=== PATIENT | female | born 1955 | race African-American/Black ===

== ENCOUNTER 2016-08-05 05:56 | Emergency (ER) | payer MEDICARE, OTHER ==
[~2016-08-05] VITALS: Ht 167.6 cm; Wt 76.9 kg
[~2016-08-05 05:56] MED LIST: ADAL60TA9 PO; AMOX500T PO; DIALYSIS; HUMSS SQ; LANTUSP SQ; LORTA5 PO; METO100T9 PO; OMEP20TA39 PO; WARF7.5T4 PO
[2016-08-05 06:05] VITALS: BP 109/53; PULSE 62; RESP 18; TEMP 98.4; O2SAT 94
[2016-08-05 06:19] VITALS: BP 109/53; PULSE 62; RESP 18; TEMP 98.4; O2SAT 94
--- NOTE | 2016-08-05 06:29 | PD ---
HPI Chief Complaint: Abdominal Pain Time Seen by Provider: 06:15 Travel History International Travel<30 days: No Contact w/Intl Traveler<30days: No Traveled to known affect area: No History of Present Illness HPI The patient is a 61-year-old female who complains of right flank pain since yesterday. She denies any nausea, vomiting, fever but does have a slight amount of diarrhea. She has end-stage renal failure and has a nonfunctioning kidney on her right side. She is on Coumadin and takes 7.5 mg daily. Apparently, this is because she has atrial fibrillation intermittently. The patient states she has not had atrial fibrillation in a long time. She does not make any urine. She states that she had pain like this on the left side when her left kidney was hemorrhaging. This is why they had to take her left kidney out. She denies any melanotic or bloody stools. 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)) Cardiovascular Problems: Yes High Cholesterol: Yes Chemotherapy: No Chest Pain: No Congestive Heart Failure: No Diabetes: Yes Dialysis: Yes (-W-) Diminished Hearing: No Endocrine: Yes Gastrointestinal Disorders: No Glaucoma: Yes Genitourinary: Yes (CRF/HOME DIALYSIS) Hepatitis: No Hiatal Hernia: No Hypertension: Yes Immune Disorder: No Implanted Vascular Access Dvce: Yes Kidney Stones: No Musculoskeletal: Yes Neurologic: No Psychiatric: No Reproductive: No Respiratory: No Immunizations Current: No Radiation Therapy: No Renal Failure: Yes (ESRD) Thyroid Disease: No ?: Not Menopausal: Yes Past Surgical History Abdominal Surgery: Yes (SARCOMA REMOVED) AICD: No Arteriovenous Shunt: Yes (Left arm fistula) Body Medical Devices: SHUNT LEFT UPPER ARM Cardiac Surgery: No Cholecystectomy: Yes Ear Surgery: No Endocrine Surgery: Yes (PARATHYROID REMOVED) Eye Surgery: Yes (LEFT LENS IMPLANT 2005) Genitourinary Surgery: No Gynecologic Surgery: Yes (HYSTERECTOMY 1989) Hysterectomy: Yes Insulin Pump: No Joint Replacement: No Oral Surgery: No Pacemaker: No Thoracic Surgery: No Other Surgery: Yes (SARCOMA REMOVAL 2000, FISTULAS TO L UPPER EXTREMITY PATENT FOR BRUIT/THRILL) Social History Alcohol Use: No Tobacco Use: No Substance Use: No Allergies-Medications (Allergen,Severity, Reaction): Coded Allergies: Vancomycin (Verified Allergy, Severe, Hives, 08/05/16) Zithromax (Verified Allergy, Severe, 08/05/16) Reported Meds & Prescriptions Reported Meds & Active Scripts Active Reported Hydroxyzine HCl 25 Mg Tab 25 Mg PO TID PRN Warfarin 7.5 Mg Tab 7.5 Mg PO DAILY Metoprolol Succinate ER 24 HR (Metoprolol Succinate) 50 Mg Tab 50 Mg PO DAILY Lantus Inj (Insulin Glargine) 1,000 Unit/10 Ml Vial 16 Units SQ HS Review of Systems Except as stated in HPI: all other systems reviewed are Neg Physical Exam Narrative GENERAL: The patient is obese, alert, oriented 3 and moderate apparent distress with her right flank pain. Her vital signs are normal. SKIN: Warm and dry. HEAD: Atraumatic. Normocephalic. EYES: Pupils equal and round. No scleral icterus. No injection or drainage. ENT: No nasal bleeding or discharge. Mucous membranes pink and moist. NECK: Trachea midline. No JVD. CARDIOVASCULAR: Regular rate and rhythm. No murmur appreciated. RESPIRATORY: No accessory muscle use. Clear to auscultation. Breath sounds equal bilaterally. GASTROINTESTINAL: Abdomen soft, with tenderness to direct palpation over the right flank, nondistended. Hepatic and splenic margins not palpable. No guarding or rebound is present. MUSCULOSKELETAL: No obvious deformities. No clubbing. No cyanosis. No edema. NEUROLOGICAL: Awake and alert. No obvious cranial nerve deficits. Motor grossly within normal limits. Normal speech. PSYCHIATRIC: Appropriate mood and affect; insight and judgment normal. Data Data Last Documented VS Vital Signs Date Time Temp Pulse Resp B/P Pulse Ox O2 Delivery O2 Flow Rate FiO2 08/05/16 06:33 18 91 Nasal Cannula 2 08/05/16 06:19 98.4 62 109/53 Orders Complete Blood Count With Diff (08/05/16 06:29) Comprehensive Metabolic Panel (08/05/16 06:29) Lipase (08/05/16 06:29) Ct Abd/Pel W Iv Contrast(Rout) (08/05/16 06:29) Iv Access Insert/Monitor (08/05/16 06:29) Ecg Monitoring (08/05/16 06:29) Oximetry (08/05/16 06:29) Sodium Chloride 0.9% Flush (Ns Flush) (08/05/16 06:30) Electrocardiogram (08/05/16 07:00) Prothrombin Time / Inr (Pt) (08/05/16 07:00) MDM Medical Decision Making Medical Screen Exam Complete: Yes Emergency Medical Condition: Yes Medical Record Reviewed: Yes Differential Diagnosis Intra-abdominal hemorrhage, cholecystitis, colitis, infection right kidney, intra-abdominal abscess, coagulopathy from Coumadin Narrative Course It is now 0700 and the patient is transferred to Dr. Dalal. Ghassan Bueno MD Aug 05, 2016 06:29
[2016-08-05] MEDS ORDERED: SODIUM CHLORIDE 0.9% FLUSH 5 ML FLUSH IVF PRN (06:30)
[2016-08-05] MEDS ORDERED: HYDR-3133 PO (06:32)
[2016-08-05] MEDS ORDERED: LANTUS2P SQ (06:32)
[2016-08-05] MEDS ORDERED: METO50TA11 PO (06:32)
[2016-08-05] MEDS ORDERED: WARF-21 PO (06:32)
[2016-08-05 06:33] VITALS: RESP 18; O2SAT 91; O2SAT 94
[2016-08-05 07:04] VITALS: BP 144/62; PULSE 64; RESP 17; O2SAT 97
[2016-08-05 07:05] LABS: AUTOMATED NEUTROPHIL # 8.8 TH/MM3 (1.8-7.7); BASOPHIL # 0.1 TH/MM3 (0-0.2); BASOPHIL % 0.7 % (0.0-2.0); EOSINOPHIL # 0.4 TH/MM3 (0-0.4); EOSINOPHIL % 3.2 % (0.0-4.0); HEMATOCRIT 35.3 % (35.0-46.0); LYMPH % 12.3 % (9.0-44.0); LYMPHOCYTE # 1.4 TH/MM3 (1.0-4.8); MEAN CELL VOLUME 91.9 FL (80.0-100.0); MEAN CORPUSCULAR HEMOGLOBIN 29.3 PG (27.0-34.0); MEAN CORPUSCULAR HGB CONC 31.8 % (32.0-36.0); MONO % 5.7 % (0.0-8.0); NEUT % 78.1 % (16.0-70.0); PLATELET COUNT 155 TH/MM3 (150-450); RED BLOOD COUNT 3.85 MIL/MM3 (4.00-5.30); RED CELL DISTRIBUTION WIDTH 15.8 % (11.6-17.2); WHITE BLOOD COUNT 11.3 TH/MM3 (4.0-11.0)
[2016-08-05 07:12] LABS: HEMO FLAGS DIFF FINAL
[2016-08-05 07:13] LABS: CHLORIDE 98 MEQ/L (98-107); POTASSIUM 6.1 MEQ/L (3.5-5.1); SODIUM (NA) 134 MEQ/L (136-145)
[2016-08-05 07:18] LABS: ANION GAP 13 MEQ/L (5-15); BICARBONATE 22.7 MEQ/L (21.0-32.0); BLOOD UREA NITROGEN 74 MG/DL (7-18)
[2016-08-05 07:21] LABS: ALT (GPT) 23 U/L (10-53); AST (GOT) 25 U/L (15-37); GLOMERULAR FILTRATION RATE 6 ML/MIN (>89)
[2016-08-05 07:23] LABS: TOTAL BILIRUBIN ADULT 0.6 MG/DL (0.2-1.0)
[2016-08-05 07:24] LABS: ALKALINE PHOSPHATASE 133 U/L (45-117)
[2016-08-05] MEDS ORDERED: IOHEXOL 350 MG/ML 10 ML VIAL (for RAD DIAG) IV ONE (07:49)
[2016-08-05 07:59] LABS: INTERNATIONAL NORMALIZED RATIO 2.8 RATIO; PROTHROMBIN TIME - PATIENT 32.1 SEC (9.8-11.6)
[2016-08-05] MEDS ORDERED: DEXTROSE 50% IN WATER 50 ML VIAL(D50) IV PUSH ONE (08:15)
[2016-08-05] MEDS ORDERED: INSULIN HUMAN REGULAR 1,000 UNITS/10 ML VIAL IV PUSH ONE (08:15)
--- NOTE | 2016-08-05 08:24 | RADHPO ---
EXAM DATE/TIME: 08/05/2016 07:42 [facility] COMPARISON: CT ABDOMEN & PELVIS W/O CONTRAST, March 22, 2014, 20:02. INDICATIONS : Right flank pain. IV CONTRAST: 75 cc Omnipaque 350 (iohexol) IV ORAL CONTRAST: No oral contrast ingested. RADIATION DOSE: 11.44 CTDIvol (mGy) MEDICAL HISTORY : Diabetes mellitus type 2. Hypertension. Renal disease, end stage. SURGICAL HISTORY : Hysterectomy. Cholecystectomy. ENCOUNTER: Initial ACUITY: 1 day PAIN SCALE: 10/10 LOCATION: Right flank TECHNIQUE: Volumetric scanning of the abdomen and pelvis was performed. Using automated exposure control and ad justment of the mA and/or kV according to patient size, radiation dose was kept as low as reasonably achievable to obtain optimal diagnostic quality images. FINDINGS: LOWER LUNGS: Bibasilar atelectasis. LIVER: Homogeneous density without lesion. There is no dilation of the biliary tree. Gallbladder is surgica lly absent. SPLEEN: A new low density lesion is seen involving the spleen. This measures 2.8 x 2.2 cm. This is vaguely ma rginated. The remaining aspects of the spleen are unremarkable. PANCREAS: 1.1 cm low-density lesion is seen involving the uncinate process. Hounsfield units are 15. The remain ing pancreas is unremarkable. No ductal dilatation. No acute inflammation. KIDNEYS: The left kidney is surgically absent. No mass within the surgical bed. The right kidney contains william ral small cortical cysts. No hydronephrosis. Pronounced atherosclerotic changes within the renal mitchell royal. ADRENAL GLANDS: Within normal limits. VASCULAR: Diffuse severe calcified atherosclerotic plaque throughout all visible arterial structures within the abdomen. No aneurysmal change of the aorta. Probable bilateral common iliac artery stenoses. BOWEL/MESENTERY: The stomach, small bowel, and colon demonstrate no acute abnormality. There is no free intraperitone al air or fluid. ABDOMINAL WALL: Within normal limits. RETROPERITONEUM: There is no lymphadenopathy. BLADDER: No wall thickening or mass. REPRODUCTIVE: Within normal limits. INGUINAL: There is no lymphadenopathy or hernia. MUSCULOSKELETAL: Within normal limits for patient age. CONCLUSION: 1. No acute abnormality. 2. 2.8 x 2.2 cm nonspecific low density mass involving the spleen. This is a new finding from the alex or exam although the prior exam was without contrast which limits the sensitivity for depicting lesio ns. Consider an outpatient MRI to further evaluate this lesion. 3. 11 mm cystic lesion involving the uncinate process of the pancreas. This is poorly characterize on this examination. Further characterization as an outpatient with MRI is suggested. 4. Prior left nephrectomy. 5. Diffuse severe calcified atherosclerotic plaque with suspected bilateral common iliac stenoses. Juan Miguel Ocampo Jr., MD on August 05, 2016 at 8:07 Board Certified Radiologist. This report was verified electronically.
[2016-08-05] MEDS ORDERED: SODIUM BICARBONATE 8.4% INJ 50 MEQ/50 ML SYR IV PUSH ONE (08:45)
[2016-08-05 08:57] VITALS: PULSE 62; O2SAT 100
--- NOTE | 2016-08-05 09:46 | PD ---
Physical Exam Narrative GENERAL: Well-nourished, well-developed patient. Well-appearing SKIN: Warm and dry. Fistula site noted on left arm HEAD: Normocephalic and atraumatic. EYES: No injection or drainage. ENT: No nasal drainage noted. NECK: Supple, trachea midline. CARDIOVASCULAR: Regular rate and rhythm RESPIRATORY: No increased effort. No accessory muscle use. NEUROLOGICAL: Awake and alert. Motor and sensory grossly within normal limits. Normal speech. Data Data Last Documented VS Vital Signs Date Time Temp Pulse Resp B/P Pulse Ox O2 Delivery O2 Flow Rate FiO2 08/05/16 09:47 62 17 140/68 100 Room Air 08/05/16 07:04 2 08/05/16 06:19 98.4 Orders Complete Blood Count With Diff (08/05/16 06:29) Comprehensive Metabolic Panel (08/05/16 06:29) Lipase (08/05/16 06:29) Ct Abd/Pel W Iv Contrast(Rout) (08/05/16 06:29) Iv Access Insert/Monitor (08/05/16 06:29) Ecg Monitoring (08/05/16 06:29) Oximetry (08/05/16 06:29) Sodium Chloride 0.9% Flush (Ns Flush) (08/05/16 06:30) Electrocardiogram (08/05/16 07:00) Prothrombin Time / Inr (Pt) (08/05/16 07:00) Iohexol 350 Inj (Omnipaque 350 Inj) (08/05/16 07:49) Insulin Human Regular Inj (Novolin R Inj (08/05/16 08:15) Dextrose 50% In Best (Vial) Inj (D50w (Vi (08/05/16 08:15) Dextrose 5% In Wate... W/Sodium Bicarbon (08/05/16 10:04) Sodium Bicarbonate 8.4% Inj (Sodium Bica (08/05/16 08:45) Labs Laboratory Tests Test 08/05/16 08/05/16 06:45 07:37 White Blood Count 11.3 TH/MM3 Red Blood Count 3.85 MIL/MM3 Hemoglobin 11.3 GM/DL Hematocrit 35.3 % Mean Corpuscular Volume 91.9 FL Mean Corpuscular Hemoglobin 29.3 PG Mean Corpuscular Hemoglobin 31.8 % Concent Red Cell Distribution Width 15.8 % Platelet Count 155 TH/MM3 Mean Platelet Volume 9.7 FL Neutrophils (%) (Auto) 78.1 % Lymphocytes (%) (Auto) 12.3 % Monocytes (%) (Auto) 5.7 % Eosinophils (%) (Auto) 3.2 % Basophils (%) (Auto) 0.7 % Neutrophils # (Auto) 8.8 TH/MM3 Lymphocytes # (Auto) 1.4 TH/MM3 Monocytes # (Auto) 0.6 TH/MM3 Eosinophils # (Auto) 0.4 TH/MM3 Basophils # (Auto) 0.1 TH/MM3 CBC Comment DIFF FINAL Differential Comment Sodium Level 134 MEQ/L Potassium Level 6.1 MEQ/L Chloride Level 98 MEQ/L Carbon Dioxide Level 22.7 MEQ/L Anion Gap 13 MEQ/L Blood Urea Nitrogen 74 MG/DL Creatinine 8.70 MG/DL Estimat Glomerular Filtration 6 ML/MIN Rate Random Glucose 88 MG/DL Calcium Level 8.5 MG/DL Total Bilirubin 0.6 MG/DL Aspartate Amino Transf 25 U/L (AST/SGOT) Alanine Aminotransferase 23 U/L (ALT/SGPT) Alkaline Phosphatase 133 U/L Total Protein 7.9 GM/DL Albumin 2.8 GM/DL Lipase 234 U/L Prothrombin Time 32.1 SEC Prothromb Time International 2.8 RATIO Ratio [facility] Supervised Visit with ANDREW: No Interpretation(s) CBC & BMP Diagram 08/05/16 06:45 Last 24 hours Impressions Abdomen/Pelvis CT 08/05/16 0629 Signed Impressions: Service Date/Time: Friday, August 05, 2016 07:42 - CONCLUSION: 1. No acute abnormality. 2. 2.8 x 2.2 cm nonspecific low density mass involving the spleen. This is a new finding from the prior exam although the prior exam was without contrast which limits the sensitivity for depicting lesions. Consider an outpatient MRI to further evaluate this lesion. 3. 11 mm cystic lesion involving the uncinate process of the pancreas. This is poorly characterize on this examination. Further characterization as an outpatient with MRI is suggested. 4. Prior left nephrectomy. 5. Diffuse severe calcified atherosclerotic plaque with suspected bilateral common iliac stenoses. Juan Miguel Ocampo Jr., MD Patient given copy of CAT scan for follow-up Narrative Course Signed over to me to follow blood work, CT and if no emergent findings could go home CT shows no acute findings with lesions that need to be followed outpatient. Patient updated and given copy for follow-up. Patient has elevated potassium and will need dialysis today will discuss with her pull tab dealer Dr. Mayfield Patient updated and agrees to dialysis today at 1145 through her pull tab dealer as an outpatient.Patient denies any new complaints and states that they are feeling better. Patient happy with care, all questions answered. Patient knows that follow up is incumbent on them and to return to the emergency room immediately if new or worsening symptoms develop. Patient given strict return precautions, vitals reviewed and are normal, agrees to further workup as an outpatient. Physician Communication Physician Communication Dr. Salinas states patient can go and Will arrange outpatient dialysis [facility] called back and said to have patient come in at 1145 Diagnosis Primary Impression: Hyperkalemia Additional Impression: Acute flank pain Patient Instructions: General Instructions Additional Instruction: GO TO YOUR DIALYSIS CENTER AT 1145 for dialysis; follow with your primary tomorrow, return as needed, Tylenol as needed Med/Other Pt SpecificInfo: No Change to Meds Disposition: 01 DISCHARGE HOME Condition: Stable Mara Bojorquez MD Aug 05, 2016 09:46
[2016-08-05 09:47] VITALS: BP 140/68; PULSE 62; RESP 17; O2SAT 100
[2016-08-05] MEDS ORDERED: SODIUM BICARBONATE 8.4% INJ 150 MEQ in DEXTROSE 5% IN WATE 1000ML INJ 1,000 ML IV ONE ×2 (10:04)
--- NOTE | 2016-08-05 17:27 | EKG ---
Date Performed: 08/05/2016 Time Performed: 07:12:38 PTAGE: 61 years EKG: Sinus arrhythmia with 1st degree A-V block Left axis deviation Anterior T wave changes are nonspecific Abnormal ECG PREVIOUS TRACING : 03/22/2014 20.13 Since previous tracing, no significant change noted DOCTOR: Merle Cruz Interpretating Date/Time 08/05/2016 17:22:07
== END 2016-08-05 09:56 | disposition home or self-care (01) ==
LOC: PHED 05:56
DX: E87.5 Hyperkalemia (principal); R10.9 Unspecified abdominal pain; R19.7 Diarrhea, unspecified; N18.6 End stage renal disease; E78.00 Pure hypercholesterolemia, unspecified; E11.9 Type 2 diabetes mellitus without complications; I12.0 Hypertensive chronic kidney disease with stage 5 chronic kidney disease or end stage renal disease; R94.31 Abnormal electrocardiogram [ECG] [EKG]; Z99.2 Dependence on renal dialysis; Z79.01 Long term (current) use of anticoagulants; Z79.4 Long term (current) use of insulin; Z86.69 Personal history of other diseases of the nervous system and sense organs; Z87.39 Personal history of other diseases of the musculoskeletal system and connective tissue; Z86.79 Personal history of other diseases of the circulatory system
CPT/HCPCS: 74177; 80053; 83690; 85025; 85610; 93005; 96374; 96375; 99284; J1815; Q9967

== ENCOUNTER 2017-04-19 09:18 | Inpatient (IN) | payer MEDICARE, OTHER ==
[~2017-04-19] VITALS: Ht 167.6 cm; Wt 74.9 kg
[2017-04-19] VITALS (29 sets, daily range): BP systolic 94–221; BP diastolic 49–108; PULSE 68–105; RESP 15–42; TEMP 98.9–104.4; O2SAT 90–99
[~2017-04-19 09:18] MED LIST changes: -ADAL60TA9 PO; -AMOX500T PO; -DIALYSIS; -HUMSS SQ; +HYDR-3133 PO; +LANTUS2P SQ; -LANTUSP SQ; -LORTA5 PO; -METO100T9 PO; +METO1TAB9 PO; -OMEP20TA39 PO; +WARF-21 PO; -WARF7.5T4 PO
[2017-04-19] MEDS ORDERED: SODIUM CHLORIDE 0.9% FLUSH 10 ML FLUSH IVF PRN (09:45)
--- NOTE | 2017-04-19 10:12 | PD ---
HPI Chief Complaint: Chest Pain Time Seen by Provider: 09:42 Travel History International Travel<30 days: No Contact w/Intl Traveler<30days: No Traveled to known affect area: No History of Present Illness HPI Ms. Bowers presents to the ED via [facility] with 2 day history of neck pain. She says the pain is in her entire neck and rates it 10/10. She cannot recall any events that led to her neck pain and stiffness. She denies any recent falls or trauma. She also states that the neck pain is going up to her head and going down towards her chest as well. She denies chest pain, dizziness, cough, congestion , fever, nausea, vomiting, or changes in bowel or urination. She has a history of hypertension, diabetes and CKD. She was due for hemodialysis today. She does not know any exacerbating alleviating factors. She denies any photophobia. Modifying Factors: None Associated Signs & Symptoms: 2 days of neck pain, chest pains, and headaches Risk Factors: End-stage renal disease, on dialysis PFSH Past Medical History Hx Anticoagulant Therapy: Yes Arthritis: Yes Atrial Fibrillation: Yes (Haven't had in years) Autoimmune Disease: No Heart Rhythm Problems: No Cancer: Yes (MYOSARCOMA (UNSURE EXACT LOCATION, FOUND WITH RENAL FAILURE DIAGNOSIS)) Cardiovascular Problems: Yes (HTN, afib) High Cholesterol: Yes Chemotherapy: No Chest Pain: No Congestive Heart Failure: No Diabetes: Yes Patient Takes Glucophage: No Dialysis: Yes (M-W-) Diminished Hearing: No Endocrine: Yes Gastrointestinal Disorders: No Glaucoma: Yes Genitourinary: Yes (CRF/HOME DIALYSIS) Hepatitis: No Hiatal Hernia: No Hypertension: Yes Immune Disorder: No Implanted Vascular Access Dvce: Yes Kidney Stones: No Medical other: Yes (HYPERPARATHYROIDISM) Musculoskeletal: Yes Neurologic: No Psychiatric: No Reproductive: No Respiratory: No Immunizations Current: Yes Pneumonia: Yes Radiation Therapy: No Renal Failure: Yes (ESRD) Thyroid Disease: No Tetanus Vaccination: Unknown Influenza Vaccination: Yes Menopausal: Yes : 2 Para: 2 Past Surgical History Abdominal Surgery: Yes (SARCOMA REMOVED) AICD: No Arteriovenous Shunt: Yes (Left arm fistula) Body Medical Devices: SHUNT LEFT UPPER ARM Cardiac Surgery: No Cholecystectomy: Yes Ear Surgery: No Endocrine Surgery: Yes (PARATHYROID REMOVED) Eye Surgery: Yes (LEFT LENS IMPLANT 2005) Genitourinary Surgery: No Gynecologic Surgery: Yes (HYSTERECTOMY 1989) Hysterectomy: Yes Insulin Pump: No Joint Replacement: No Oral Surgery: No Pacemaker: No Thoracic Surgery: No Other Surgery: Yes (SARCOMA REMOVAL 2000, FISTULAS TO L UPPER EXTREMITY PATENT FOR BRUIT/THRILL) Social History Alcohol Use: Yes (OCC) Tobacco Use: No Substance Use: No Allergies-Medications (Allergen,Severity, Reaction): Coded Allergies: azithromycin (Verified Allergy, Severe, 04/19/17) vancomycin (Verified Allergy, Severe, Hives, 04/19/17) Reported Meds & Prescriptions Reported Meds & Active Scripts Active Reported Hydroxyzine HCl 25 Mg Tab 25 Mg PO TID PRN Warfarin 7.5 Mg Tab 7.5 Mg PO DAILY Metoprolol Succinate ER 24 HR (Metoprolol Succinate) 50 Mg Tab 50 Mg PO DAILY Lantus Inj (Insulin Glargine) 1,000 Unit/10 Ml Vial 16 Units SQ HS Review of Systems Except as stated in HPI: all other systems reviewed are Neg Physical Exam Exam Limitations: Poor Historian Narrative GENERAL: Well-developed, well nourished, elderly -Japanese female, in mild distress. Awake and oriented 3. No photophobia. SKIN: Warm and dry. healed rashed over abdomen and extremities HEAD: Atraumatic. Normocephalic. EYES: Pupils equal and round. No scleral icterus. No injection or drainage. NECK: Trachea midline. Limited ROM due to pain. Pain on palpation, no point tenderness or midline tenderness. No JVD. CARDIOVASCULAR: Regular rate and rhythm. RESPIRATORY: No accessory muscle use. Clear to auscultation. Breath sounds equal bilaterally. GASTROINTESTINAL: Abdomen soft, non-tender, nondistended. Hepatic and splenic margins not palpable. MUSCULOSKELETAL: Extremities without clubbing, cyanosis, or edema. No obvious deformities. NEUROLOGICAL: Awake and alert. No obvious cranial nerve deficits. Motor grossly within normal limits. 5/5 muscle strength in the arms and legs on the RIGHT. 4/5 muscle strength in the arms and legs on the LEFT. Normal speech. PSYCHIATRIC: Appropriate mood and affect; insight and judgment normal. Data Data Last Documented VS Vital Signs Date Time Temp Pulse Resp B/P (MAP) Pulse Ox O2 Delivery O2 Flow Rate FiO2 04/19/17 12:02 98.9 72 17 214/77 (122) 99 Room Air 04/19/17 10:53 2.00 Orders Orders Electrocardiogram (04/19/17 09:42) Ckmb (Isoenzyme) Profile (04/19/17 09:42) Complete Blood Count With Diff (04/19/17 09:42) Comprehensive Metabolic Panel (04/19/17 09:42) Magnesium (Mg) (04/19/17 09:42) Prothrombin Time / Inr (Pt) (04/19/17 09:42) Act Partial Throm Time (Ptt) (04/19/17 09:42) Troponin I (04/19/17 09:42) Chest, Single Ap (04/19/17 09:42) Ecg Monitoring (04/19/17 09:42) Bilateral Bp Monitoring (04/19/17 09:42) Iv Access Insert/Monitor (04/19/17 09:42) Oximetry (04/19/17 09:42) Oxygen Administration (04/19/17 09:42) Sodium Chloride 0.9% Flush (Ns Flush) (04/19/17 09:45) Ct Brain W/O Iv Contrast(Rout) (04/19/17 09:58) Ct Cerv Spine W/O Contrast (04/19/17 09:58) Blood Culture (04/19/17 09:59) Lactic Acid Sepsis Protocol (04/19/17 09:59) Admit Order (Ed Use Only) (04/19/17 12:39) Labs Laboratory Tests Test 04/19/17 10:10 White Blood Count 7.1 TH/MM3 Red Blood Count 4.65 MIL/MM3 Hemoglobin 13.6 GM/DL Hematocrit 42.0 % Mean Corpuscular Volume 90.3 FL Mean Corpuscular Hemoglobin 29.3 PG Mean Corpuscular Hemoglobin Concent 32.4 % Red Cell Distribution Width 15.6 % Platelet Count 137 TH/MM3 Mean Platelet Volume 11.4 FL Neutrophils (%) (Auto) 89.8 % Lymphocytes (%) (Auto) 5.9 % Monocytes (%) (Auto) 3.6 % Eosinophils (%) (Auto) 0.0 % Basophils (%) (Auto) 0.7 % Neutrophils # (Auto) 6.4 TH/MM3 Lymphocytes # (Auto) 0.4 TH/MM3 Monocytes # (Auto) 0.3 TH/MM3 Eosinophils # (Auto) 0.0 TH/MM3 Basophils # (Auto) 0.0 TH/MM3 CBC Comment DIFF FINAL Differential Comment Prothrombin Time 44.3 SEC Prothromb Time International Ratio 3.8 RATIO Activated Partial Thromboplast Time 50.9 SEC Blood Urea Nitrogen 76 MG/DL Creatinine 9.80 MG/DL Random Glucose 270 MG/DL Total Protein 9.1 GM/DL Albumin 3.4 GM/DL Calcium Level 9.0 MG/DL Magnesium Level 2.1 MG/DL Alkaline Phosphatase 162 U/L Aspartate Amino Transf (AST/SGOT) 27 U/L Alanine Aminotransferase (ALT/SGPT) 30 U/L Total Bilirubin 0.9 MG/DL Sodium Level 127 MEQ/L Potassium Level 6.5 MEQ/L Chloride Level 88 MEQ/L Carbon Dioxide Level 26.4 MEQ/L Anion Gap 13 MEQ/L Estimat Glomerular Filtration Rate 5 ML/MIN Lactic Acid Level 2.1 mmol/L Total Creatine Kinase 95 U/L Troponin I 0.06 NG/ML MDM Medical Decision Making Medical Screen Exam Complete: Yes Emergency Medical Condition: Yes Medical Record Reviewed: Yes Interpretation(s) EKG shows NSR, no ST elevation or depression, and no arrhythmias. No significant T-wave inversions. Laboratory Tests Test 04/19/17 10:10 Platelet Count 137 TH/MM3 (150-450) Mean Platelet Volume 11.4 FL (7.0-11.0) Neutrophils (%) (Auto) 89.8 % (16.0-70.0) Lymphocytes (%) (Auto) 5.9 % (9.0-44.0) Lymphocytes # (Auto) 0.4 TH/MM3 (1.0-4.8) Prothrombin Time 44.3 SEC (9.8-11.6) Activated Partial Thromboplast Time 50.9 SEC (24.3-30.1) Blood Urea Nitrogen 76 MG/DL (7-18) Creatinine 9.80 MG/DL (0.50-1.00) Random Glucose 270 MG/DL (74-106) Total Protein 9.1 GM/DL (6.4-8.2) Alkaline Phosphatase 162 U/L (45-117) Sodium Level 127 MEQ/L (136-145) Potassium Level 6.5 MEQ/L (3.5-5.1) Chloride Level 88 MEQ/L (98-107) Estimat Glomerular Filtration Rate 5 ML/MIN (>89) Lactic Acid Level 2.1 mmol/L (0.4-2.0) Troponin I 0.06 NG/ML (0.02-0.05) Last [address] 04/19/17957 Signed Impressions: Service Date/Time: Wednesday, April 19, 2017 11:00 - CONCLUSION: Negative for acute process. There is no sinus disease. Clayton Romero MD FACR Cervical Spine CT 04/19/17957 Signed Impressions: Service Date/Time: Wednesday, April 19, 2017 11:00 - CONCLUSION: 1. There is moderate to severe multilevel degenerative disc disease with possible canal stenosis at C3-C4, C5-C6, and C6-C7, as above. There are additional areas of mild neural foraminal narrowing. These findings could be better delineated with MRI, if needed. 2. No acute cervical spine abnormality is identified. Anival Anderson MD Chest X-Ray [id number] Signed Impressions: Service Date/Time: Wednesday, April 19, 2017 10:30 - CONCLUSION: Moderate congestive failure. Clayton Romero MD FACR Differential Diagnosis neck pains, headaches, chest pains: Muscle spasms versus ACS versus radiculopathy versus torticollis Narrative Course Patient's blood pressures quite elevated in the ER. EKG did not show any signs of acute ST-T changes. CAT scan was done of the head and neck considering the story and did not show any signs of acute processes but does show significant cervical arthritis and likely causing some radiculopathy for the neck pain. Vital signs are stable in the patient is afebrile. Her lab work does show her BUN and creatinine is quite elevated potassium is high, she is in need of dialysis. Chest x-ray shows some signs of pulmonary edema as well. Troponin is mildly elevated although with patient's BUN and creatinine, it is uncertain whether this is a true elevation. She will need further treatment for her blood pressure and will need her troponins followed up. Plan would be to admit her for further treatment at this point. Case was discussed with Dr. Mani Mayfield's nurse practitioner who states that she will get to dialysis set up. She also would like us to start the patient on hyperkalemia protocol considering that the dialysis will take a few more hours, and patient was started on bicarbonate, insulin, glucose, and calcium. Case was then discussed with Dr. Garcia for admission. Diagnosis Primary Impression: Hyperkalemia Additional Impressions: ESRD (end stage renal disease) Hypertensive urgency, malignant Chest pain Neck pain Admitting Information Admitting Physician Requests: Admit Luis Knott MD Apr 19, 2017 10:12
[2017-04-19 10:47] LABS: CHLORIDE 88 MEQ/L (98-107); POTASSIUM 6.5 MEQ/L (3.5-5.1); SODIUM (NA) 127 MEQ/L (136-145)
[2017-04-19 10:51] LABS: ANION GAP 13 MEQ/L (5-15); BICARBONATE 26.4 MEQ/L (21.0-32.0); BLOOD UREA NITROGEN 76 MG/DL (7-18); MAGNESIUM 2.1 MG/DL (1.5-2.5)
[2017-04-19 10:52] LABS: APTT (PATIENT) 50.9 SEC (24.3-30.1); INTERNATIONAL NORMALIZED RATIO 3.8 RATIO; PROTHROMBIN TIME - PATIENT 44.3 SEC (9.8-11.6)
[2017-04-19 10:54] LABS: ALT (GPT) 30 U/L (10-53); AST (GOT) 27 U/L (15-37); GLOMERULAR FILTRATION RATE 5 ML/MIN (>89)
[2017-04-19 10:55] LABS: TOTAL BILIRUBIN ADULT 0.9 MG/DL (0.2-1.0)
--- NOTE | 2017-04-19 10:55 | RADRPT ---
EXAM DATE/TIME: 04/19/2017 10:30 [facility] COMPARISON: CHEST SINGLE AP, March 22, 2014, 20:35. INDICATIONS : Neck pain that radiates to chest. MEDICAL HISTORY : Diabetes mellitus type II. Hypertension Hyperparathyroidism. SURGICAL HISTORY : None. ENCOUNTER: Initial ACUITY: 2 days PAIN SCORE: 10/10 LOCATION: Bilateral chest FINDINGS: The heart is enlarged. Mild interstitial edema is present. There is no other consolidation, pleural effusion pneumothorax. Amorphous calcifications are seen overlying the distal right clavicle, stable in the interval. CONCLUSION: Moderate congestive failure. Clayton Romero MD FACR on April 19, 2017 at 10:50 Board Certified Radiologist. This report was verified electronically.
[2017-04-19 10:57] LABS: ALKALINE PHOSPHATASE 162 U/L (45-117)
[2017-04-19 11:00] LABS: AUTOMATED NEUTROPHIL # 6.4 TH/MM3 (1.8-7.7); BASOPHIL % 0.7 % (0.0-2.0); CREATINE KINASE 95 U/L (26-192); HEMO FLAGS DIFF FINAL; LYMPH % 5.9 % (9.0-44.0); LYMPHOCYTE # 0.4 TH/MM3 (1.0-4.8); MEAN CELL VOLUME 90.3 FL (80.0-100.0); MEAN CORPUSCULAR HEMOGLOBIN 29.3 PG (27.0-34.0); MEAN CORPUSCULAR HGB CONC 32.4 % (32.0-36.0); MONO % 3.6 % (0.0-8.0); NEUT % 89.8 % (16.0-70.0); PLATELET COUNT 137 TH/MM3 (150-450); RED BLOOD COUNT 4.65 MIL/MM3 (4.00-5.30); RED CELL DISTRIBUTION WIDTH 15.6 % (11.6-17.2); WHITE BLOOD COUNT 7.1 TH/MM3 (4.0-11.0)
--- NOTE | 2017-04-19 11:10 | RADRPT ---
EXAM DATE/TIME: 04/19/2017 11:00 [facility] COMPARISON: CT BRAIN W/O CONTRAST, September 06, 2010, 16:00. INDICATIONS : Head and neck pain. No known trauma. RADIATION DOSE: 61.53 CTDIvol (mGy) MEDICAL HISTORY : Hypertension. Renal failure, chronic. Diabetes mellitus type 2. SURGICAL HISTORY : Cholecystectomy. Hysterectomy.AV Shunt. ENCOUNTER: Initial ACUITY: 2 days PAIN SCALE: 8/10 LOCATION: cranial TECHNIQUE: Multiple contiguous axial images were obtained of the head. Using automated exposure control and adj ustment of the mA and/or kV according to patient size, radiation dose was kept as low as reasonably a chievable to obtain optimal diagnostic quality images. DICOM format image data is available electro nically for review and comparison. FINDINGS: CEREBRUM: The ventricles are normal for age. No evidence of midline shift, mass lesion, hemorrhage or acute in farction. No extra-axial fluid collections are seen. POSTERIOR FOSSA: The cerebellum and brainstem are intact. The 4th ventricle is midline. The cerebellopontine angle i s unremarkable. EXTRACRANIAL: The visualized portion of the orbits is intact. SKULL: The calvaria is intact. No evidence of skull fracture. CONCLUSION: Negative for acute process. There is no sinus disease. Clayton Romero MD FACR on April 19, 2017 at 11:08 Board Certified Radiologist. This report was verified electronically.
--- NOTE | 2017-04-19 12:06 | RADRPT ---
EXAM DATE/TIME: 04/19/2017 11:00 [facility] COMPARISON: CT ABDOMEN & PELVIS W CONTRAST, August 05, 2016, 7:42. INDICATIONS : Head and neck pain. No known trauma. RADIATION DOSE: 26.32 CTDIvol (mGy) MEDICAL HISTORY : Hypertension. Renal failure, chronic. Diabetes mellitus type 2. SURGICAL HISTORY : Cholecystectomy. Hysterectomy.AV Shunt. ENCOUNTER: Initial ACUITY: 2 days PAIN SCALE: 8/10 LOCATION: neck TECHNIQUE: Volumetric scanning of the cervical spine was performed. Multiplanar reconstructions in the sagittal, coronal and oblique axial planes were performed. Using automated exposure control and adjustment o f the mA and/or kV according to patient size, radiation dose was kept as low as reasonably achievable to obtain optimal diagnostic quality images. DICOM format image data is available electronically f or review and comparison. FINDINGS: VERTEBRAE: Normal vertebral body height. No fracture is identified. ALIGNMENT: No anterolisthesis or retrolisthesis. The craniocervical junction demonstrates no abnormality. There are degenerative changes at the anteri or atlantodens interval. C2-C3: No disc herniation, canal stenosis, or neural foraminal stenosis is identified. C3-C4: There is a diffuse disc bulge with moderate size central disc protrusion with mass effect on the spin al cord and likely causing mild spinal canal stenosis. No significant neural foraminal narrowing is p resent. C4-C5: There is decreased disc height with endplate sclerosis and endplate irregularity. Mild to moderate di ffuse posterior disc osteophyte complex is present and there are bilateral uncovertebral osteophytes mildly narrowing the neural foramina bilaterally. No definite canal stenosis is present. C5-C6: Decreased disc height with a central disc protrusion. No definite neural foraminal narrowing is prese nt. There may be mild spinal canal stenosis. C6-C7: Decreased disc height with endplate sclerosis and osteophytes. There is diffuse posterior disc osteop hyte complex, largest centrally. Uncovertebral osteophytes are present causing mild narrowing of the left neural foramen and likely mild spinal canal stenosis is present. C7-T1: No disc herniation, canal stenosis, or neural foraminal stenosis is present. Visualized paraspinous structures demonstrate no acute finding. However, there is severe vertebral ca lcification bilaterally and there is severe small vessel arterial vascular calcification in a pattern typically seen in diabetic patient's or in patients with end-stage renal disease CONCLUSION: 1. There is moderate to severe multilevel degenerative disc disease with possible canal stenosis at C 3-C4, C5-C6, and C6-C7, as above. There are additional areas of mild neural foraminal narrowing. Thes e findings could be better delineated with MRI, if needed. 2. No acute cervical spine abnormality is identified. Anival Anderson MD on April 19, 2017 at 11:52 Board Certified Radiologist. This report was verified electronically.
[2017-04-19 12:25] LABS: LACTIC ACID GHOST NOT REPORTABLE
[2017-04-19] MEDS: SODIUM BICARBONATE 8.4% SOLN 50 MEQ/50 ML VIAL SLOW IVP ONE ×2 (12:45→13:22)
[2017-04-19] MEDS ORDERED: CALCIUM GLUCONATE 10% 1 GM/10 ML VIAL SLOW IVP ONE (12:45)
[2017-04-19] MEDS ORDERED: DEXTROSE 50% IN WATER 50 ML VIAL(D50) IV PUSH ONE (12:45)
[2017-04-19] MEDS ORDERED: SODIUM CHLOR 0.9% 1000 ML INJ 1,000 ML OTHER PRN ×2 (12:50)
[2017-04-19] MEDS ORDERED: SODIUM CHLOR 0.9% 1000 ML INJ 1,000 ML IV PRN (12:50)
--- NOTE | 2017-04-19 12:50 | EKG ---
Date Performed: 04/19/2017 Time Performed: 09:24:26 PTAGE: 61 years EKG: Sinus rhythm WITH FIRST DEGREE AV BLOCK POSSIBLE LEFT ATRIAL ENLARGEMENT MARKED LEFT AXIS DEVIATION ABNORMAL ECG PREVIOUS TRACING : 08/05/2016 07.12 DOCTOR: Rakesh Barros Interpretating Date/Time 04/19/2017 12:46:52
[2017-04-19] MEDS ORDERED: MANNITOL 12.5 GM/50 ML VIAL IV PRN (13:00)
[2017-04-19] MEDS ORDERED: ONDANSETRON HCL 4 MG/2 ML VIAL IV PUSH PRN (13:00)
[2017-04-19] MEDS ORDERED: HEPARIN SODIUM - IV 10,000 UNITS/10 ML VIAL PRN (13:00)
[2017-04-19] MEDS ORDERED: diphenhydrAMINE HCL 25 MG CAP PO PRN (13:00)
[2017-04-19] MEDS ORDERED: ALBUMIN 25% INJ 100 ML IV PRN (13:00)
[2017-04-19] MEDS ORDERED: SODIUM CHLORIDE 0.9% FLUSH 10 ML FLUSH IV FLUSH PRN (13:00)
[2017-04-19] MEDS ORDERED: HEPARIN SODIUM - IV 10,000 UNITS/10 ML VIAL IV FLUSH PRN (13:00)
[2017-04-19] MEDS ORDERED: cloNIDine HCL 0.1 MG TAB PO PRN (13:00)
[2017-04-19] MEDS ORDERED: NITROGLYCERIN 0.4 MG SL 25 TABS/BTL SL PRN (13:00)
[2017-04-19] MEDS ORDERED: INSULIN HUMAN REGULAR 1,000 UNITS/10 ML VIAL IV PUSH ONE (13:00)
[2017-04-19] MEDS ORDERED: cloNIDine HCL 0.2 MG TAB PO ONE (13:00)
[2017-04-19] MEDS ORDERED: GENTAMICIN SULFATE (DIALYSIS USE ONLY) 20 MG/2 ML VIAL OTHER PRN (13:00)
[2017-04-19] MEDS: GELATIN 12 MM/7 MM FOAM TOP PRN (14:10)
[2017-04-19] MEDS ORDERED: DEXTROSE 50% IN WATER 50 ML VIAL(D50) IV PUSH PRN (16:30)
[2017-04-19] MEDS ORDERED: niCARdipine INJ 25 MG in SODIUM CHLOR 0.9% 250 ML INJ 240 ML IV PRN (16:30)
[2017-04-19] MEDS ORDERED: GLUCAGON 1 MG/ML VIAL OTHER PRN (16:30)
--- NOTE | 2017-04-19 16:32 | HHI.HP ---
[facility] Service [facility] Primary Care Physician Marzena Lozoya MD Admission Diagnosis hypertensive urgency/chest pain/neck pain Diagnoses: (1) Hypertensive urgency, malignant Diagnosis: Principal (2) ESRD (end stage renal disease) Diagnosis: Principal (3) Hyperkalemia Diagnosis: Principal (4) Metabolic encephalopathy Diagnosis: Principal (5) Elevated troponin Diagnosis: Principal (6) Elevated lactic acid level Diagnosis: Principal Chief Complaint: Sent here by dialysis center Travel History International Travel<30 Days: No Contact w/Intl Traveler <30 Da: No Traveled to Known Affected Are: No Sepsis Criteria SIRS Criteria (2 or more): Temp > 100.9 or < 96.8 History of Present Illness Written by Kendall Bueno, acting as scribe for Dr. Garcia on 04/19/17 at 16 :04. 61-year-old female with known history of end-stage renal disease who undergoes dialysis, hypertension, hyperlipidemia, who presented to the hospital at the request of the dialysis center because of complaining of multiple painful sites. Patient appears to have some confusion and slowed responses upon questioning. She is unable to give much information. Information was taken from patient, medical records, nursing staff, ER physician. When asked why she is here she is stammering with her speech, states that she was having pain in which she points to her abdomen. However medical records indicate that the ER doctor elicited that she had neck pain that would go into her head and down toward her chest. Records indicated that she went for dialysis today and apparently she was complaining of chest discomfort and sent here for evaluation. Workup in emergency department found the patient have abnormal findings supportive of end-stage renal disease requiring dialysis today. Patient had mildly elevated lactic acid level in which no infectious source can be identified at this time. Equivocal troponin elevation. However most impressive is her blood pressure which appears to be significantly elevated with hypertensive emergency complicated with confusion, headache, chest discomfort. Patient was admitted to ICU for further treatment and management Review of Systems ROS Limitations: Clinical Condition, Altered Mental Status, Poor Historian Except as stated in HPI: all other systems reviewed are Neg Unable to obtain further review of systems due to poor history by patient Past Family Social History Past Medical History Hypertension Hyperlipidemia End-stage renal disease on dialysis Diabetes History of leiomyosarcoma history of paroxysmal atrial fibrillation Past Surgical History Dialysis fistula placement Hysterectomy Cataract surgery Parathyroidectomy Leiomyosarcoma removal Cholecystectomy Reported Medications Reported Meds & Active Scripts Active Reported Hydroxyzine HCl 25 Mg Tab 25 Mg PO TID PRN Warfarin 7.5 Mg Tab 7.5 Mg PO DAILY Metoprolol Succinate ER 24 HR (Metoprolol Succinate) 50 Mg Tab 50 Mg PO DAILY Lantus Inj (Insulin Glargine) 1,000 Unit/10 Ml Vial 16 Units SQ HS Allergies: Coded Allergies: azithromycin (Verified Allergy, Severe, 04/19/17) vancomycin (Verified Allergy, Severe, PT VERIFIED RASH WITH VANCOMYCIN., 04/19/17) Family History Records reviewed and no significant family history appreciated Social History Record review and is no indication of any tobacco, alcohol or illicit drug use Physical Exam Vital Signs Vital Signs Date Time Temp Pulse Resp B/P (MAP) Pulse Ox O2 Delivery O2 Flow Rate FiO2 04/19/17 15:20 99 Nasal Cannula 2.00 04/19/17 13:49 101.0 18 195/69 (111) 04/19/17 12:02 98.9 72 17 214/77 (122) 99 Room Air 04/19/17 10:53 68 18 211/96 (134) 97 Nasal Cannula 2.00 04/19/17 09:20 98 Nasal Cannula 2.00 04/19/17 09:18 99.0 68 16 221/78 (125) 92 Physical Exam GENERAL: Well-developed, well-nourished, in no acute distress. alert and orientated HEENT: Head is normocephalic without any lesions or masses noted. Facial features are symmetric. Eyes: Pupils equal round reactive to light. Extraocular muscles are intact. Conjunctivae were clear. Oropharyngeal: Pharynx without any erythema edema. No tongue fasciculation noted. Buccal mucosa is moist without any masses or lesions NECK: Has some nuchal rigidity with pain elicited upon neck flexion, no pain elicited upon leg raising bilaterally CARDIAC: Regular rhythm, regular rate. S1/S2 are heard. No murmurs gallops or rubs. Bowel tenderness noted over mid sternum. LUNGS: Bibasilar crackles, upper lung quijano are clear.. No wheeze, rhonchi or rales. No use of accessory muscles on inspiration or expiration. ABDOMEN: Soft, bowel tenderness noted over epigastric area. Nondistended. Bowel sounds heard in all 4 quadrants. No organomegaly or masses. Negative rebound, negative guarding EXTREMITIES: No edema, pulses are equal bilaterally. No cyanosis or clubbing, Fistula noted in the left upper extremity with no signs of erythema suggestive of infection NEUROLOGY: No facial droop, no slurred speech, no tremors. Patient has slowed responses to questions. Is awake. Psychiatry: Slightly anxious appearing affect. Skin: Has diffuse multiple purpuric lesions all throughout bilateral upper and lower extremities Laboratory Laboratory Tests Test 04/19/17 10:10 04/19/17 13:40 White Blood Count 7.1 Red Blood Count 4.65 Hemoglobin 13.6 Hematocrit 42.0 Mean Corpuscular Volume 90.3 Mean Corpuscular Hemoglobin 29.3 Mean Corpuscular Hemoglobin Concent 32.4 Red Cell Distribution Width 15.6 Platelet Count 137 Mean Platelet Volume 11.4 Neutrophils (%) (Auto) 89.8 Lymphocytes (%) (Auto) 5.9 Monocytes (%) (Auto) 3.6 Eosinophils (%) (Auto) 0.0 Basophils (%) (Auto) 0.7 Neutrophils # (Auto) 6.4 Lymphocytes # (Auto) 0.4 Monocytes # (Auto) 0.3 Eosinophils # (Auto) 0.0 Basophils # (Auto) 0.0 CBC Comment DIFF FINAL Differential Comment Prothrombin Time 44.3 Prothromb Time International Ratio 3.8 Activated Partial Thromboplast Time 50.9 Blood Urea Nitrogen 76 Creatinine 9.80 Random Glucose 270 Total Protein 9.1 Albumin 3.4 Calcium Level 9.0 Magnesium Level 2.1 Alkaline Phosphatase 162 Aspartate Amino Transf (AST/SGOT) 27 Alanine Aminotransferase (ALT/SGPT) 30 Total Bilirubin 0.9 Sodium Level 127 Potassium Level 6.5 Chloride Level 88 Carbon Dioxide Level 26.4 Anion Gap 13 Estimat Glomerular Filtration Rate 5 Lactic Acid Level 2.1 2.1 Total Creatine Kinase 95 Troponin I 0.06 Date/Time Source Procedure Growth Status 04/19/17 10:14 Blood Peripheral Aerobic Blood Culture Pending Received 04/19/17 10:14 Blood Peripheral Anaerobic Blood Culture Pending Received Result Diagram: 04/19/17 1010 04/19/17 1010 Imaging Last Impressions Head CT 04/19/17 0958 Signed Impressions: Service Date/Time: Wednesday, April 19, 2017 11:00 - CONCLUSION: Negative for acute process. There is no sinus disease. Clayton Romero MD FACR Cervical Spine CT 04/19/17957 Signed Impressions: Service Date/Time: Wednesday, April 19, 2017 11:00 - CONCLUSION: 1. There is moderate to severe multilevel degenerative disc disease with possible canal stenosis at C3-C4, C5-C6, and C6-C7, as above. There are additional areas of mild neural foraminal narrowing. These findings could be better delineated with MRI, if needed. 2. No acute cervical spine abnormality is identified. Anival Anderson MD Chest X-Ray 04/19/17941 Signed Impressions: Service Date/Time: Wednesday, April 19, 2017 10:30 - CONCLUSION: Moderate congestive failure. Clayton Romero MD FACR Caprini VTE Risk Assessment Caprini VTE Risk Assessment: Mod/High Risk (score >= 2) Caprini Risk Assessment Model Point Value = 1 Point Value = 2 Point Value = 3 Point Value = 5 Age 41-60 Minor surgery BMI > 25 kg/m2 Swollen legs Varicose veins or History of unexplained or recurrent spontaneous Oral contraceptives or hormone replacement Sepsis (< 1 month) Serious lung disease, including pneumonia (< 1 month) Abnormal pulmonary function Acute myocardial infarction Congestive heart failure (< 1 month) History of inflammatory bowel disease Medical patient at bed rest Age 61-74 Arthroscopic surgery Major open surgery (> 45 min) Laparoscopic surgery (> 45 min) Malignancy Confined to bed (> 72 hours) Immobilizing plaster cast Central venous access Age >= 75 History of VTE Family history of VTE Factor V Leiden Prothrombin [id number] Lupus anticoagulant Anticardiolipin antibodies Elevated serum homocysteine Heparin-induced thrombocytopenia Other congenital or acquired thrombophilia Stroke (< 1 month) Elective arthroplasty Hip, pelvis, or leg fracture Acute spinal cord injury (< 1 month) Prophylaxis Regimen Total Risk Factor Score Risk Level Prophylaxis Regimen 0-1 Low Early ambulation 2 Moderate Order ONE of the following: *Sequential Compression Device (SCD) *Heparin 5000 units SQ BID 3-4 Higher Order ONE of the following medications: *Heparin 5000 units SQ TID *Enoxaparin/Lovenox 40 mg SQ daily (WT < 150 kg, CrCl > 30 mL/min) *Enoxaparin/Lovenox 30 mg SQ daily (WT < 150 kg, CrCl > 10-29 mL/min) *Enoxaparin/Lovenox 30 mg SQ BID (WT < 150 kg, CrCl > 30 mL/min) AND/OR *Sequential Compression Device (SCD) 5 or more Highest Order ONE of the following medications: *Heparin 5000 units SQ TID (Preferred with Epidurals) *Enoxaparin/Lovenox 40 mg SQ daily (WT < 150 kg, CrCl > 30 mL/min) *Enoxaparin/Lovenox 30 mg SQ daily (WT < 150 kg, CrCl > 10-29 mL/min) *Enoxaparin/Lovenox 30 mg SQ BID (WT < 150 kg, CrCl > 30 mL/min) AND *Sequential Compression Device (SCD) Assessment and Plan Assessment and Plan Hypertensive emergency with confusion, headache, chest discomfort, elevated troponin - Patient admitted to ICU for continued management and care - Start Cardene IV to maintain blood pressure less than 160 Metabolic encephalopathy, confusion - Unknown etiology at this time, could be secondary to sepsis (meningitis, bacteremia), uremia, hypertensive emergency - CT of head did not indicate any acute abnormality - Neuro checks - Further testing for any underlying metabolic encephalopathy with TSH, B12, folate, ammonia level, RPR - Further workup for any infectious process, continue to monitor blood culture - Is re-spiking fevers while inpatient, starting cefepime and vancomycin, will try to obtain lumbar puncture [place] so will reverse w/ Vit K, may need to transfer to main hospital given more accessibility for IR End-stage renal disease on hemodialysis - Patient with multiple electrolyte abnormalities, hyponatremia, hyperkalemia - Contract Administrator consulted for management - Dialysis to performed today Equivocal troponin elevation - Could be secondary to renal failure, hypertensive emergency - Continue to trend cardiac enzymes, serial EKGs to rule out any acute coronary event Fever, mildly elevated lactic acid level - Continue monitor for any infection - Follow blood cultures - Check influenza testing - Chest x-ray was clear for any infiltrate Diabetes - Accu-Cheks with sliding scale insulin Neck pain on presentation - CT scan shows that there is [id number] degenerative disc disease with possible canal stenosis at C3 to C4, C5 to C6, and C6 to C7. - Patient can continue with outpatient MRI and follow-up with primary medical doctor Hypertension, hyperlipidemia, - Continue home medications paroxysmal atrial fibrillation - Holding home Coumadin in light of anticipated procedures - INR recheck in AM, INR goal of less than 1.8 DVT prevention - Patient anticoagulated on Coumadin INR 3.8 - reversing w/ warfarin - SCDs for now given LP anticipated Physician Certification 2 Midnight Certification Type: Admission for Inpatient Services Order for Inpatient Services The services are ordered in accordance with Medicare regulations or non- Medicare payer requirements, as applicable. In the case of services not specified as inpatient-only, they are appropriately provided as inpatient services in accordance with the 2-midnight benchmark. Estimated LOS (days): 4 4 days is the estimated time the patient will need to remain in the hospital, assuming treatment plan goals are met and no additional complications. Post-Hospital Plan: Not yet determined Kendall Bueno Apr 19, 2017 16:32 Jeff Garcia MD Apr 19, 2017 17:53
--- NOTE | 2017-04-19 16:55 | PD.CONS ---
HPI Service Nephrology Consult Requested By Reason for Consult ESRD on HD, hyperkalemia Primary Care Physician Marzena Lozoya MD History of Present Illness This is a 61 y/o AAF dialysis patient. She went to the clinic where they directed her to the ER for vague complaints of neck pain, chest pain, abdominal pain. ON arrival her BP was 200s systolic, K 6.5. She was given IV insulin and dextrose and is seen today during dialysis. She has not missed any treatments, is a full code. PMH as listed below. We were consulted for management. (Petrona Sexton) Review of Systems Constitutional: COMPLAINS OF: Fatigue, DENIES: Diaphoretic episodes, Weight gain Respiratory: DENIES: Shortness of breath Cardiovascular: DENIES: Dyspnea on Exertion, Lower Extremity Edema Gastrointestinal: DENIES: Abdominal pain Musculoskeletal: COMPLAINS OF: Joint pain, Muscle aches, Stiffness, Neck pain ( Petrona Sexton) Past Family Social History Allergies: Coded Allergies: azithromycin (Verified Allergy, Severe, 04/19/17) vancomycin (Verified Allergy, Severe, Hives, 04/19/17) Past Medical History Hypertension Hyperlipidemia End-stage renal disease on dialysis Diabetes History of leiomyosarcoma history of paroxysmal atrial fibrillation Past Surgical History AVF placement, left arm Hysterectomy Cataract surgery Parathyroidectomy Leiomyosarcoma removal Cholecystectomy Reported Medications Hydroxyzine HCl 25 Mg Tab 25 Mg PO TID PRN Warfarin 7.5 Mg Tab 7.5 Mg PO DAILY Metoprolol Succinate ER 24 HR (Metoprolol Succinate) 50 Mg Tab 50 Mg PO DAILY Lantus Inj (Insulin Glargine) 1,000 Unit/10 Ml Vial 16 Units SQ HS Renvela 3200 ml po TID with meals Active Ordered Medications Current Medications Medications (Trade) Dose Ordered Sig/[place] Route Start Time Stop Time Status Last Admin Sodium Chloride 1,000 ml @ 0 mls/hr Q0M PRN OTHER 04/19/17 12:50 (Heparin Inj) 8,000 units UNSCH PRN IV FLUSH 04/19/17 13:00 Sodium Chloride 1,000 ml @ 200 mls/hr Q5H PRN IV 04/19/17 12:50 Sodium Chloride 1,000 ml @ 0 mls/hr Q0M PRN OTHER 04/19/17 12:50 (Mannitol Inj) 12.5 gm UNSCH PRN IV 04/19/17 13:00 Albumin Human 100 ml @ 60 mls/hr UNSCH PRN IV 04/19/17 13:00 (NS Flush) 5 ml UNSCH PRN IV FLUSH 04/19/17 13:00 (Heparin Inj) UNSCH PRN .XX 04/19/17 13:00 (Gentamicin (Dialysis) Inj) 20 mg UNSCH PRN OTHER 04/19/17 13:00 (Zofran Inj) 4 mg UNSCH PRN IV PUSH 04/19/17 13:00 04/19/17 14:11 (Tylenol) 650 mg UNSCH PRN PO 04/19/17 13:00 (Benadryl) 25 mg UNSCH PRN PO 04/19/17 13:00 (Nitrostat Sl) 0.4 mg UNSCH PRN SL 04/19/17 13:00 (Catapres) 0.1 mg UNSCH PRN PO 04/19/17 13:00 (Gelfoam 12 Mm/7 Mm Top) 1 foam UNSCH PRN TOP 04/19/17 13:00 04/19/17 14:10 (D50w (Vial) Inj) 50 ml UNSCH PRN IV PUSH 04/19/17 16:30 UNV (Glucagon Inj) 1 mg UNSCH PRN OTHER 04/19/17 16:30 UNV (NovoLOG SUPPLEMENTAL SCALE) 1 ACHS SLIDING SCALE SQ 04/19/17 17:00 UNV Nicardipine HCl 25 mg/Sodium Chloride 250 ml @ 50 mls/hr TITRATE PRN IV 04/19/17 16:30 UNV (Toprol Xl) 50 mg DAILY PO 04/20/17 09:00 UNV Family History No hx of renal disorders Social History Non smoking She lives with daughter Non ambulatory Full code (Petrona Sexton) Physical Exam Vital Signs Vital Signs Date Time Temp Pulse Resp B/P (MAP) Pulse Ox O2 Delivery O2 Flow Rate FiO2 04/19/17 15:20 99 Nasal Cannula 2.00 04/19/17 13:49 101.0 18 195/69 (111) 04/19/17 12:02 98.9 72 17 214/77 (122) 99 Room Air 04/19/17 10:53 68 18 211/96 (134) 97 Nasal Cannula 2.00 04/19/17 09:20 98 Nasal Cannula 2.00 04/19/17 09:18 99.0 68 16 221/78 (125) 92 Physical Exam Middle aged AAF sitting up receiving hemodialysis Eyes closed but responds to voice S1/S2, RRR, II/ systolic murmur Abdomen round, soft, slightly tender Extremities with trace edema, distal pulses intact 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 Laboratory Laboratory Tests Test 04/19/17 10:10 04/19/17 13:40 White Blood Count 7.1 Red Blood Count 4.65 Hemoglobin 13.6 Hematocrit 42.0 Mean Corpuscular Volume 90.3 Mean Corpuscular Hemoglobin 29.3 Mean Corpuscular Hemoglobin Concent 32.4 Red Cell Distribution Width 15.6 Platelet Count 137 Mean Platelet Volume 11.4 Neutrophils (%) (Auto) 89.8 Lymphocytes (%) (Auto) 5.9 Monocytes (%) (Auto) 3.6 Eosinophils (%) (Auto) 0.0 Basophils (%) (Auto) 0.7 Neutrophils # (Auto) 6.4 Lymphocytes # (Auto) 0.4 Monocytes # (Auto) 0.3 Eosinophils # (Auto) 0.0 Basophils # (Auto) 0.0 CBC Comment DIFF FINAL Differential Comment Prothrombin Time 44.3 Prothromb Time International Ratio 3.8 Activated Partial Thromboplast Time 50.9 Blood Urea Nitrogen 76 Creatinine 9.80 Random Glucose 270 Total Protein 9.1 Albumin 3.4 Calcium Level 9.0 Magnesium Level 2.1 Alkaline Phosphatase 162 Aspartate Amino Transf (AST/SGOT) 27 Alanine Aminotransferase (ALT/SGPT) 30 Total Bilirubin 0.9 Sodium Level 127 Potassium Level 6.5 Chloride Level 88 Carbon Dioxide Level 26.4 Anion Gap 13 Estimat Glomerular Filtration Rate 5 Lactic Acid Level 2.1 2.1 Total Creatine Kinase 95 Troponin I 0.06 Date/Time Source Procedure Growth Status 04/19/17 10:14 Blood Peripheral Aerobic Blood Culture Pending Received 04/19/17 10:14 Blood Peripheral Anaerobic Blood Culture Pending Received (Petrona Sexton) Result Diagram: 04/19/17 1010 04/19/17 1010 Imaging Last [address] 04/19/17 0958 Signed Impressions: Service Date/Time: Wednesday, April 19, 2017 11:00 - CONCLUSION: Negative for acute process. There is no sinus disease. Clayton Romero MD FACR Cervical Spine CT 04/19/1758 Signed Impressions: Service Date/Time: Wednesday, April 19, 2017 11:00 - CONCLUSION: 1. There is moderate to severe multilevel degenerative disc disease with possible canal stenosis at C3-C4, C5-C6, and C6-C7, as above. There are additional areas of mild neural foraminal narrowing. These findings could be better delineated with MRI, if needed. 2. No acute cervical spine abnormality is identified. Anival Anderson MD Chest X-Ray 04/19/1742 Signed Impressions: Service Date/Time: Wednesday, April 19, 2017 10:30 - CONCLUSION: Moderate congestive failure. Clatyon Romero MD FACR (Petrona Sexton) Assessment and Plan Problem List: (1) ESRD (end stage renal disease) ICD Codes: N18.6 - End-stage renal disease Status: Acute Plan: Typical MWF HD Seen during dialysis on a 1K, 350 BFR, goal 2L Repeat labs in AM No dietary protein restriction Avoid IVF Avoid Left arm procedures, 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 (2) Hypertensive urgency, malignant ICD Codes: I16.0 - Hypertensive urgency Status: Acute Plan: To be transferred to ICU on cardene gtt Home medications resumed (3) Hyperkalemia ICD Codes: E87.5 - Hyperkalemia Status: Acute Plan: Due to renal failure Treated with IV insulin, dextrose. Dialysis on a 1K. Repeat labs in AM (4) Chest pain ICD Codes: R07.9 - Chest pain, unspecified Status: Acute Plan: Work up per medical team May be due to hypertensive urgency (5) Anemia ICD Codes: D64.9 - Anemia Status: Acute Plan: Epogen not required Avoid due to hypertensive crisis (6) Metabolic bone disease ICD Codes: E88.9 - Metabolic bone disease; M90.80 - Osteopathy in diseases classified elsewhere, unspecified site Status: Acute Plan: Resume Renvela, intermittently monitor phosphorus level (7) Hyponatremia ICD Codes: E87.1 - Hypo-osmolality and hyponatremia Plan: Acute, asymptomatic Check serum osmolality, TSH, uric acid Restrict PO fluids, repeat labs (8) Diabetes mellitus type 2 with complications ICD Codes: E11.8 - Type 2 diabetes mellitus with manifestations Status: Acute Plan: Insulin as needed, goal 140-180 mg/dL. (Petrona Sexton) Assessment and Plan patient was seen and examined. She was seen after dialysis. 2 liters removed. Patient was febrile during dialysis. Neck stiffness? Needs fever workup, perhaps LP. Suggest broad spectrum antibiotics. Discussed with hospitalist. CT head and neck reviewed. Was hyperkalemic, dialyzed emergently. Corrected serum Na is 130, monitor. (Louis Fagan MD) Petrona Sexton Apr 19, 2017 16:55 Louis Fagan MD Apr 19, 2017 17:33
[2017-04-19] MEDS: INSULIN ASPART SUPPLEMENTAL SCALE SQ SCH ×2 (17:00→21:00)
[2017-04-19] MEDS: ACETAMINOPHEN 325 MG TAB PO PRN ×2 (17:46→23:48)
[2017-04-19] MEDS ORDERED: PHYTONADIONE 10 MG/ML VIAL SQ ONE (18:00)
[2017-04-19] MEDS ORDERED: niCARdipine INJ 25 MG in SODIUM CHLOR 0.9% 250 ML INJ 250 ML IV PRN (18:15)
--- NOTE | 2017-04-19 19:02 | EKG ---
Date Performed: 04/19/2017 Time Performed: 18:21:08 PTAGE: 61 years EKG: Sinus rhythm WITH FIRST DEGREE AV BLOCK WITH OCCASIONAL SUPRAVENTRICULAR PREMATURE COMPLEXES POSSIBLE LEFT ATRIAL ENLARGEMENT MARKED LEFT AXIS DEVIATION NONSPECIFIC ST & T-WAVE ABNORMALITY ABNORMAL ECG Compared to prior electrocardiogram, Premature atrial contraction are now present PREVIOUS TRACING : 04/19/2017 09.24 DOCTOR: Jhonny Sanabria Interpretating Date/Time 04/19/2017 19:01:35
[2017-04-19] MEDS: CEFEPIME 1000 MG/NS 100 ML IV SCH ×2 (19:05)
[2017-04-19 19:27] LABS: CREATINE KINASE 122 U/L (26-192)
[2017-04-19 19:40] LABS: CKMB LESS THAN 0.5 NG/ML (0.5-3.6)
[2017-04-19] MEDS ORDERED: TACROLIMUS 1 MG CAP PO ONE (20:00)
[2017-04-19] MEDS ORDERED: VANCOMYCIN 1,500 MG/NS 500 ML IV ONE ×2 (20:00)
[2017-04-19 20:40] LABS: LACTIC ACID GHOST NOT REPORTABLE
[2017-04-19] MEDS: DAPTOMYCIN IV SCH (21:04)
[2017-04-19] MEDS: SODIUM CHLORIDE 0.9% IV SCH ×2 (21:04→21:36)
[2017-04-19] MEDS: ACYCLOVIR IV SCH (21:36)
[2017-04-19] MEDS ORDERED: CHLORHEXIDINE GLUCONATE 2 % 1 PACK (2 CLOTHS)(extra cloths) TOPICAL PRN (22:45)
[2017-04-19] MEDS: MORPHINE SULFATE 2 MG/ML INJ IV PUSH PRN (23:19)
[2017-04-19 23:31] LABS: CKMB 0.5 NG/ML (0.5-3.6)
[2017-04-20] VITALS (29 sets, daily range): BP systolic 113–169; BP diastolic 49–85; PULSE 56–76; RESP 12–44; TEMP 97.4–102.1; O2SAT 96–100
[2017-04-20] MEDS: CHLORHEXIDINE GLUCONATE 2 % 1 PACK (2 CLOTHS)(taper/protocol) TOPICAL SCH (04:00)
[2017-04-20 04:45] LABS: AUTOMATED NEUTROPHIL # 7.6 TH/MM3 (1.8-7.7); BASOPHIL # 0.1 TH/MM3 (0-0.2); BASOPHIL % 0.7 % (0.0-2.0); HEMATOCRIT 40.7 % (35.0-46.0); HEMO FLAGS DIFF FINAL; LYMPH % 5.9 % (9.0-44.0); LYMPHOCYTE # 0.5 TH/MM3 (1.0-4.8); MEAN CELL VOLUME 89.2 FL (80.0-100.0); MEAN CORPUSCULAR HGB CONC 31.4 % (32.0-36.0); MONO % 4.1 % (0.0-8.0); NEUT % 89.3 % (16.0-70.0); PLATELET COUNT 132 TH/MM3 (150-450); RED BLOOD COUNT 4.56 MIL/MM3 (4.00-5.30); RED CELL DISTRIBUTION WIDTH 15.1 % (11.6-17.2); WHITE BLOOD COUNT 8.6 TH/MM3 (4.0-11.0)
[2017-04-20 04:51] LABS: POTASSIUM 3.7 MEQ/L (3.5-5.1)
[2017-04-20 04:54] LABS: INTERNATIONAL NORMALIZED RATIO 3.2 RATIO; PROTHROMBIN TIME - PATIENT 37.3 SEC (9.8-11.6)
[2017-04-20 05:04] LABS: MAGNESIUM 2.1 MG/DL (1.5-2.5)
[2017-04-20] MEDS ORDERED: PHYTONADIONE 10 MG/ML VIAL IV ONE (07:00)
--- NOTE | 2017-04-20 07:02 | EKG ---
Date Performed: 04/19/2017 Time Performed: 22:44:22 PTAGE: 61 years EKG: Baseline artifact present SINUS TACHYCARDIA POSSIBLE LEFT ATRIAL ENLARGEMENT INDETERMINATE AXIS Nonspecific ST and T wave abnormalities ABNORMAL ECG Compared to prior electrocardiogram, rate h as increased PREVIOUS TRACING : 04/19/2017 18.21 DOCTOR: Jhonny Sanabria Interpretating Date/Time 04/20/2017 07:00:34
[2017-04-20] MEDS ORDERED: PHYTONADIONE IV ONE ×2 (07:30)
[2017-04-20] MEDS ORDERED: DEXTROSE 5% IV ONE ×2 (07:30)
[2017-04-20] MEDS ORDERED: WATER IV ONE ×2 (07:30)
--- NOTE | 2017-04-20 08:03 | HHI.NPPN ---
Subjective Renal Failure: Chronic, End Stage Renal Disease Interval History She was moved to ICU. Off nicardipine, BP is better. She is more alert. T max 104.1, afebrile now. (Petrona Sexton) Review of Systems General Constitutional: Fever, Chills, Fatigue (Petrona Sexton) Musculoskeletal MS: Pain/Stiffness MS Remarks neck pain (Petrona Sexton) Neuro Neuro: Headache (Petrona Sexton) Objective Data Data Vital Signs Date Time Temp Pulse Resp B/P (MAP) Pulse Ox O2 Delivery O2 Flow Rate FiO2 04/20/17 07:00 100 Bi-Pap 35 04/20/17 07:00 97.4 58 17 147/57 (87) 99 04/20/17 06:00 56 04/20/17 06:00 58 12 121/53 (75) 97 04/20/17 05:00 58 21 131/52 (78) 97 04/20/17 04:20 99 35 04/20/17 04:00 98.8 58 19 132/51 (78) 100 04/20/17 04:00 57 04/20/17 03:00 62 14 138/63 (88) 99 04/20/17 02:00 63 04/20/17 02:00 100.0 62 12 137/63 (87) 100 04/20/17 02:00 100 35 04/20/17 01:00 101.5 66 15 127/53 (77) 100 04/20/17 00:02 102.1 68 18 113/53 (73) 100 04/20/17 00:00 65 04/19/17 23:47 104.4 74 29 134/49 (77) 96 04/19/17 23:32 76 20 128/51 (76) 99 04/19/17 23:25 98 35 04/19/17 23:24 14 04/19/17 23:17 90 33 169/63 (98) 92 04/19/17 23:02 103.0 98 30 158/76 (103) 94 04/19/17 23:00 99 Bi-Pap 35 04/19/17 22:48 101 154/98 04/19/17 22:47 100 42 140/108 (119) 04/19/17 22:32 94 40 123/73 (90) 04/19/17 22:17 100.9 80 28 94/60 (71) 96 04/19/17 22:02 72 26 151/65 (93) 97 04/19/17 22:00 89 Venturi Mask 35 04/19/17 22:00 69 04/19/17 21:47 70 16 150/73 (98) 96 04/19/17 21:32 70 23 146/75 (98) 95 04/19/17 21:17 72 34 157/77 (103) 96 04/19/17 21:02 70 25 159/76 (103) 96 04/19/17 20:47 74 17 157/78 (104) 96 04/19/17 20:17 70 15 138/62 (87) 95 04/19/17 20:02 102.2 68 17 133/52 (79) 94 04/19/17 20:00 86 Nasal Cannula 4.00 04/19/17 20:00 105 04/19/17 19:20 93 Nasal Cannula 2.00 04/19/17 19:02 68 04/19/17 18:02 76 04/19/17 17:31 76 21 167/60 (95) 91 04/19/17 17:30 76 04/19/17 17:22 101.4 77 20 177/63 (101) 90 04/19/17 15:20 99 Nasal Cannula 2.00 04/19/17 13:49 101.0 18 195/69 (111) 04/19/17 12:02 98.9 72 17 214/77 (122) 99 Room Air 04/19/17 10:53 68 18 211/96 (134) 97 Nasal Cannula 2.00 04/19/17 09:20 98 Nasal Cannula 2.00 04/19/17 09:18 99.0 68 16 221/78 (125) 92 (Petrona Sexton) -: 04/20/1742104/20/17421 Microbiology 04/19/17 Aerobic Blood Culture, Received Pending 04/19/17 Anaerobic Blood Culture, Received Pending 04/19/17 Aerobic Blood Culture, Received Pending 04/19/17 Anaerobic Blood Culture, Received Pending Imaging Last [address] 04/19/17 0958 Signed Impressions: Service Date/Time: Wednesday, April 19, 2017 11:00 - CONCLUSION: Negative for acute process. There is no sinus disease. Clayton Romero MD FACR Cervical Spine CT 04/19/1758 Signed Impressions: Service Date/Time: Wednesday, April 19, 2017 11:00 - CONCLUSION: 1. There is moderate to severe multilevel degenerative disc disease with possible canal stenosis at C3-C4, C5-C6, and C6-C7, as above. There are additional areas of mild neural foraminal narrowing. These findings could be better delineated with MRI, if needed. 2. No acute cervical spine abnormality is identified. Anival Anderson MD Chest X-Ray 04/19/17941 Signed Impressions: Service Date/Time: Wednesday, April 19, 2017 10:30 - CONCLUSION: Moderate congestive failure. Clayton Romero MD FACR (Petrona Sexton B. THEA) Physical Exam General Appearance: Well Developed, No Acute Distress, Comfortable, Malnourished (Petrona Sexton B. [employer] ASSIST[employer] DEPARTMENT HEAD) Eyes Eye Exam: Pupils Equal (Petrona Sexton B. [employer] ASSIST[employer] DEPARTMENT HEAD) Throat Throat Exam: Oral Mucosa Cicero & Moist (Petrona Sexton B. [employer] ASSIST[employer] DEPARTMENT HEAD) Neck Neck Exam: Nuchal Rigidity (Petrona Sexton B. [employer] ASSIST[employer] DEPARTMENT HEAD) Pulmonary Resp Exam: Clear Bilaterally, Breath Sounds Equal, No Distress (Petrona Sexton B. [employer] ASSIST[employer] DEPARTMENT HEAD) Cardiology CV Exam: Regular, Normal Sinus Rhythm, Good Perfusion (Petrona Sexton B. [employer] ASSIST[employer]PARTMENT HEAD) Gastrointestinal/Abdomen GI Exam: Soft, Non-Tender, Bowel Sounds Present (Petrona Sexton B. [employer] ASSIST[employer] DEPARTMENT HEAD) Musculoskeletal MS Exam: Joints Intact, Good Strength (Petrona Sexton B. [employer] ASSIST[employer] DEPARTMENT HEAD) Integumentary Skin Exam: Clear, Warm, Dry, Intact (Petrona Sexton B. [employer] ASSIST[employer] DEPARTMENT HEAD) Extremeties Extremities Exam: No Edema, Pedal Pulses Palpable Extremeties Remarks right arm AVF, + thrill, bruit; aneurism is present (Petrona Sexton B. [employer] ASSISTANT DEPARTMENT HEAD) Neurologic Neuro Exam: Alert, Awake, Oriented, Speech Clear, Moving All Extremities (Petrona Sexton B. [employer] ASSISTANT DEPARTMENT HEAD) Psychiatric Psych Exam: Appropriate Responses (DarshanPetrona maguire) Assessment/Plan Discussed Condition With: Patient Assessment Summary: Anemia of CKD, Hypertension, Diabetes Mellitus, End Stage Renal Disease Problem List: (1) ESRD (end stage renal disease) ICD Codes: N18.6 - End-stage renal disease Status: Acute Plan: Typical MWF HD 2L fluid removal yesterday Repeat labs unremarkable No dietary protein restriction Avoid IVF Avoid Left arm procedures, 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 (2) Fever ICD Codes: R50.9 - Fever, unspecified Status: Acute Plan: With neck pain Rule out meningitis, on IV acyclovir and daptomycin, to have LP ID has been consulted She was give vitamin K pre procedure, INR still elevated (3) Hyperkalemia ICD Codes: E87.5 - Hyperkalemia Status: Acute Plan: Due to renal failure corrected, monitor for recurrence (4) Hypertensive urgency, malignant ICD Codes: I16.0 - Hypertensive urgency Status: Acute Plan: BP improved, off nicardipine On oral medications (5) Chest pain ICD Codes: R07.9 - Chest pain, unspecified Status: Acute Plan: Work up per medical team May be due to hypertensive urgency (6) Anemia ICD Codes: D64.9 - Anemia Status: Acute Plan: Epogen not required Avoid due to hypertensive crisis (7) Metabolic bone disease ICD Codes: E88.9 - Metabolic bone disease; M90.80 - Osteopathy in diseases classified elsewhere, unspecified site Status: Acute Plan: Continue Renvela, intermittently monitor phosphorus level (8) Diabetes mellitus type 2 with complications ICD Codes: E11.8 - Type 2 diabetes mellitus with manifestations Status: Acute Plan: Insulin as needed, goal 140-180 mg/dL. (Petrona Sexton) Plan patient was seen and examined in the evening. Above note reviewed, agree with assessment and plan. Reviewed other notes. Blood culture is positive for Staph aureus. Continue antibiotics per ID. Her mental status has improved significantly compared to yesterday. (Louis Fagan MD) Petrona Sexton Apr 20, 2017 08:03 Louis Fagan MD Apr 20, 2017 17:44
--- NOTE | 2017-04-20 08:34 | PD.CONS ---
History of Present Illness Service Infectious disease Consult Requested By Dr Garcia Reason for Consult Sepsis Primary Care Physician Marzena Lozoya MD Diagnoses: Past Family Social History Allergies: Coded Allergies: azithromycin (Verified Allergy, Severe, 04/19/17) vancomycin (Verified Allergy, Severe, PT VERIFIED RASH WITH VANCOMYCIN., 04/19/17) Physical Exam Vital Signs Vital Signs Date Time Temp Pulse Resp B/P (MAP) Pulse Ox O2 Delivery O2 Flow Rate FiO2 04/20/17 07:00 100 Bi-Pap 35 04/20/17 07:00 97.4 58 17 147/57 (87) 99 04/20/17 06:00 56 04/20/17 06:00 58 12 121/53 (75) 97 04/20/17 05:00 58 21 131/52 (78) 97 04/20/17 04:20 99 35 04/20/17 04:00 98.8 58 19 132/51 (78) 100 04/20/17 04:00 57 04/20/17 03:00 62 14 138/63 (88) 99 04/20/17 02:00 63 04/20/17 02:00 100.0 62 12 137/63 (87) 100 04/20/17 02:00 100 35 04/20/17 01:00 101.5 66 15 127/53 (77) 100 04/20/17 00:02 102.1 68 18 113/53 (73) 100 04/20/17 00:00 65 04/19/17 23:47 104.4 74 29 134/49 (77) 96 04/19/17 23:32 76 20 128/51 (76) 99 04/19/17 23:25 98 35 04/19/17 23:24 14 04/19/17 23:17 90 33 169/63 (98) 92 04/19/17 23:02 103.0 98 30 158/76 (103) 94 04/19/17 23:00 99 Bi-Pap 35 04/19/17 22:48 101 154/98 04/19/17 22:47 100 42 140/108 (119) 04/19/17 22:32 94 40 123/73 (90) 04/19/17 22:17 100.9 80 28 94/60 (71) 96 04/19/17 22:02 72 26 151/65 (93) 97 04/19/17 22:00 89 Venturi Mask 35 04/19/17 22:00 69 04/19/17 21:47 70 16 150/73 (98) 96 04/19/17 21:32 70 23 146/75 (98) 95 04/19/17 21:17 72 34 157/77 (103) 96 04/19/17 21:02 70 25 159/76 (103) 96 04/19/17 20:47 74 17 157/78 (104) 96 04/19/17 20:17 70 15 138/62 (87) 95 04/19/17 20:02 102.2 68 17 133/52 (79) 94 04/19/17 20:00 86 Nasal Cannula 4.00 04/19/17 20:00 105 04/19/17 19:20 93 Nasal Cannula 2.00 04/19/17 19:02 68 04/19/17 18:02 76 04/19/17 17:31 76 21 167/60 (95) 91 04/19/17 17:30 76 04/19/17 17:22 101.4 77 20 177/63 (101) 90 04/19/17 15:20 99 Nasal Cannula 2.00 04/19/17 13:49 101.0 18 195/69 (111) 04/19/17 12:02 98.9 72 17 214/77 (122) 99 Room Air 04/19/17 10:53 68 18 211/96 (134) 97 Nasal Cannula 2.00 04/19/17 09:20 98 Nasal Cannula 2.00 04/19/17 09:18 99.0 68 16 221/78 (125) 92 Physical Exam GENERAL: This is a well-nourished, well-developed patient, in no apparent distress. SKIN: No rashes, ecchymoses or lesions. Cool and dry. HEAD: Atraumatic. Normocephalic. No temporal or scalp tenderness. EYES: Pupils equal round and reactive. Extraocular motions intact. No scleral icterus. No injection or drainage. ENT: Nose without bleeding, purulent drainage or septal hematoma. Throat without erythema, tonsillar hypertrophy or exudate. Uvula midline. Airway patent. NECK: Trachea midline. No JVD or lymphadenopathy. Supple, nontender, no meningeal signs. CARDIOVASCULAR: Regular rate and rhythm without murmurs, gallops, or rubs. RESPIRATORY: Clear to auscultation. Breath sounds equal bilaterally. No wheezes , rales, or rhonchi. GASTROINTESTINAL: Abdomen soft, non-tender, nondistended. No hepato-splenomegaly , or palpable masses. No guarding. MUSCULOSKELETAL: Extremities without clubbing, cyanosis, or edema. No joint tenderness, effusion, or edema noted. No calf tenderness. Negative Homans sign bilaterally. NEUROLOGICAL: Awake and alert. Cranial nerves II through XII intact. Motor and sensory grossly within normal limits. Five out of 5 muscle strength in all muscle groups. Normal speech. Laboratory Laboratory Tests Test 04/19/17 10:10 04/19/17 13:40 04/19/17 18:25 04/19/17 20:55 White Blood Count 7.1 Red Blood Count 4.65 Hemoglobin 13.6 Hematocrit 42.0 Mean Corpuscular Volume 90.3 Mean Corpuscular Hemoglobin 29.3 Mean Corpuscular Hemoglobin Concent 32.4 Red Cell Distribution Width 15.6 Platelet Count 137 Mean Platelet Volume 11.4 Neutrophils (%) (Auto) 89.8 Lymphocytes (%) (Auto) 5.9 Monocytes (%) (Auto) 3.6 Eosinophils (%) (Auto) 0.0 Basophils (%) (Auto) 0.7 Neutrophils # (Auto) 6.4 Lymphocytes # (Auto) 0.4 Monocytes # (Auto) 0.3 Eosinophils # (Auto) 0.0 Basophils # (Auto) 0.0 CBC Comment DIFF FINAL Differential Comment Prothrombin Time 44.3 Prothromb Time International Ratio 3.8 Activated Partial Thromboplast Time 50.9 Blood Urea Nitrogen 76 Creatinine 9.80 Random Glucose 270 Total Protein 9.1 Albumin 3.4 Calcium Level 9.0 Magnesium Level 2.1 Alkaline Phosphatase 162 Aspartate Amino Transf (AST/SGOT) 27 Alanine Aminotransferase (ALT/SGPT) 30 Total Bilirubin 0.9 Sodium Level 127 Potassium Level 6.5 3.9 Chloride Level 88 Carbon Dioxide Level 26.4 Anion Gap 13 Estimat Glomerular Filtration Rate 5 Lactic Acid Level 2.1 2.1 2.5 1.2 Total Creatine Kinase 95 122 Troponin I 0.06 0.08 Erythrocyte Sedimentation Rate 25 Ammonia LESS THAN 10 Creatine Kinase MB LESS THAN 0.5 Test 04/19/17 22:40 04/19/17 22:48 04/19/17 23:45 04/20/17 04:22 Total Creatine Kinase 390 Creatine Kinase MB 0.5 Creatine Kinase MB % 0.1 Troponin I 0.10 Thyroid Stimulating Hormone 3rd Gen 0.639 White Blood Count 8.6 Red Blood Count 4.56 Hemoglobin 12.8 Hematocrit 40.7 Mean Corpuscular Volume 89.2 Mean Corpuscular Hemoglobin 28.0 Mean Corpuscular Hemoglobin Concent 31.4 Red Cell Distribution Width 15.1 Platelet Count 132 Mean Platelet Volume 10.7 Neutrophils (%) (Auto) 89.3 Lymphocytes (%) (Auto) 5.9 Monocytes (%) (Auto) 4.1 Eosinophils (%) (Auto) 0.0 Basophils (%) (Auto) 0.7 Neutrophils # (Auto) 7.6 Lymphocytes # (Auto) 0.5 Monocytes # (Auto) 0.4 Eosinophils # (Auto) 0.0 Basophils # (Auto) 0.1 CBC Comment DIFF FINAL Differential Comment Prothrombin Time 37.3 Prothromb Time International Ratio 3.2 Blood Urea Nitrogen 53 Creatinine 7.30 Random Glucose 159 Calcium Level 8.3 Magnesium Level 2.1 Sodium Level 133 Potassium Level 3.7 Chloride Level 92 Carbon Dioxide Level 29.0 Anion Gap 12 Estimat Glomerular Filtration Rate 7 Date/Time Source Procedure Growth Status 04/19/17 10:14 Blood Peripheral Aerobic Blood Culture Pending Received 04/19/17 10:14 Blood Peripheral Anaerobic Blood Culture Pending Received Result Diagram: 04/20/1742104/20/17421 Assessment and Plan Problem List: (1) Fever ICD Codes: R50.9 - Fever, unspecified Status: Acute Plan: Follow blood cultures Check Rapid Flu test Continue IV Daptomycin, Cefepime and Acyclovir Patient having difficulty finding words- so will get MRI Brain Agree with CSF exam Continue IV Acyclovir (2) ESRD (end stage renal disease) ICD Codes: N18.6 - End-stage renal disease Status: Acute (3) Neck pain ICD Codes: M54.2 - Cervicalgia Status: Acute (4) Diabetes mellitus type 2 with complications ICD Codes: E11.8 - Type 2 diabetes mellitus with manifestations Status: Acute Patricia Jarrett MD Apr 20, 2017 08:34
[2017-04-20] MEDS ORDERED: METOPROLOL SUCCINATE 50 MG EXTENDED RELEASE TAB PO SCH (09:00)
[2017-04-20] MEDS: INSULIN ASPART SUPPLEMENTAL SCALE SQ SCH ×4 (09:52→21:00)
[2017-04-20 11:18] LABS: C. DIFF EPI 027 PRESUMPTIVE NEGATIVE (NEGATIVE)
--- NOTE | 2017-04-20 13:39 | HHI.PR ---
Subjective Remarks Nursing reports that the patient's mental status is much better than yesterday. Patient is actually alert and oriented today. She did have fevers overnight and was started on a cooling blanket. Fevers are not recurring this morning. Has been titrated off the Cardene drip successfully. Objective Vital Signs Date Time Temp Pulse Resp B/P (MAP) Pulse Ox O2 Delivery O2 Flow Rate FiO2 04/20/17 13:00 62 13 123/56 (78) 04/20/17 12:00 60 04/20/17 12:00 98.0 60 14 124/57 (79) 04/20/17 11:00 64 31 119/62 (81) 04/20/17 10:00 62 28 153/71 (98) 98 04/20/17 10:00 62 04/20/17 09:00 60 29 139/64 (89) 98 04/20/17 08:14 98 Nasal Cannula 2.00 04/20/17 08:00 62 04/20/17 08:00 62 28 143/80 (101) 100 04/20/17 07:50 100 04/20/17 07:00 100 Bi-Pap 35 04/20/17 07:00 97.4 58 17 147/57 (87) 99 04/20/17 06:00 56 04/20/17 06:00 58 12 121/53 (75) 97 04/20/17 05:00 58 21 131/52 (78) 97 04/20/17 04:20 99 35 04/20/17 04:00 98.8 58 19 132/51 (78) 100 04/20/17 04:00 57 04/20/17 03:00 62 14 138/63 (88) 99 04/20/17 02:00 63 04/20/17 02:00 100.0 62 12 137/63 (87) 100 04/20/17 02:00 100 35 04/20/17 01:00 101.5 66 15 127/53 (77) 100 04/20/17 00:02 102.1 68 18 113/53 (73) 100 04/20/17 00:00 65 04/19/17 23:47 104.4 74 29 134/49 (77) 96 04/19/17 23:32 76 20 128/51 (76) 99 04/19/17 23:25 98 35 04/19/17 23:24 14 04/19/17 23:17 90 33 169/63 (98) 92 04/19/17 23:02 103.0 98 30 158/76 (103) 94 04/19/17 23:00 99 Bi-Pap 35 04/19/17 22:48 101 154/98 04/19/17 22:47 100 42 140/108 (119) 04/19/17 22:32 94 40 123/73 (90) 04/19/17 22:17 100.9 80 28 94/60 (71) 96 04/19/17 22:02 72 26 151/65 (93) 97 04/19/17 22:00 89 Venturi Mask 35 04/19/17 22:00 69 04/19/17 21:47 70 16 150/73 (98) 96 04/19/17 21:32 70 23 146/75 (98) 95 04/19/17 21:17 72 34 157/77 (103) 96 04/19/17 21:02 70 25 159/76 (103) 96 04/19/17 20:47 74 17 157/78 (104) 96 04/19/17 20:17 70 15 138/62 (87) 95 04/19/17 20:02 102.2 68 17 133/52 (79) 94 04/19/17 20:00 86 Nasal Cannula 4.00 04/19/17 20:00 105 04/19/17 19:20 93 Nasal Cannula 2.00 04/19/17 19:02 68 04/19/17 18:02 76 04/19/17 17:31 76 21 167/60 (95) 91 04/19/17 17:30 76 04/19/17 17:22 101.4 77 20 177/63 (101) 90 04/19/17 15:20 99 Nasal Cannula 2.00 04/19/17 13:49 101.0 18 195/69 (111) I/O 04/19/17 04/19/17 04/19/17 04/20/17 04/20/17 04/20/17 07:00 15:00 23:00 07:00 15:00 23:00 Intake Total 200 ml 248 ml 50.5 ml Output Total 2000 ml Balance -1800 ml 248 ml 50.5 ml Intake Oral 120 ml IV Total 200 ml 128 ml 50.5 ml Hemodialysis 2000 ml # Voids 0 # Bowel Movements 3 Result Diagram: 04/20/1742104/20/17421 Objective Remarks Patient is seen actually sitting up in chair, awake and alert No rigidity with neck flexion noted today, full range of motion actively Alert and oriented 3 A/P Assessment and Plan Hypertensive emergency with confusion, headache, chest discomfort, elevated troponin - resolved Metabolic encephalopathy - resolved - Unknown etiology at this time, could be secondary to sepsis (meningitis, bacteremia), uremia, hypertensive emergency - CT of head did not indicate any acute abnormality - Neuro checks - TSH, B12, folate wnl, RPR is nonreactive - continue abx as below - LP planned, INR still supra-therapeutic, re-dosing Vit K Bacteremia - new diagnosis - f/u speciation - continue cefepime and daptomycin - ID following End-stage renal disease on hemodialysis - dialysis performed yesterday - nephrology following Equivocal troponin elevation - Likely secondary to renal failure, hypertensive emergency Diabetes - Accu-Cheks with sliding scale insulin Neck pain on presentation - CT scan shows that there is [id number] degenerative disc disease with possible canal stenosis at C3 to C4, C5 to C6, and C6 to C7. - Patient can continue with outpatient MRI and follow-up with primary medical doctor Hypertension, hyperlipidemia, - Continue home medications paroxysmal atrial fibrillation - Holding home Coumadin in light of anticipated procedures - INR recheck in AM, INR goal of less than 1.8 DVT prevention - Patient anticoagulated on Coumadin INR 3.8 - additional IV vit K today - SCDs for now given LP anticipated Jeff Garcia MD Apr 20, 2017 13:38
--- NOTE | 2017-04-20 13:50 | EKG ---
Date Performed: 04/20/2017 Time Performed: 08:20:14 PTAGE: 61 years EKG: Sinus rhythm WITH SINUS ARRHYTHMIA WITH FIRST DEGREE AV BLOCK POSSIBLE LEFT ATRIAL ENLARGEMENT LEFT ANTERIOR FASC ICULAR BLOCK NONSPECIFIC T-WAVE ABNORMALITY PROLONGED QT INTERVAL ABNORMAL ECG Compared to prior elec trocardiogram, rate has decreased PREVIOUS TRACING : 04/19/2017 22.44 DOCTOR: Jhonny Sanabria Interpretating Date/Time 04/20/2017 13:50:16
--- NOTE | 2017-04-20 17:23 | RADRPT ---
EXAM DATE/TIME: 04/20/2017 16:28 [facility] COMPARISON: No previous studies available for comparison. INDICATIONS : Encephalitis. MEDICAL HISTORY : Renal failure, chronic. Diabetes mellitus type 2. Hypertension. Myosarcoma. SURGICAL HISTORY : Hysterectomy. Cholecystectomy. Sarcoma removal and kidney removal. ENCOUNTER: Initial ACUITY: 1 day PAIN SCORE: 0/10 LOCATION: Head. TECHNIQUE: Multiplanar, multisequence MRI of the brain was performed without contrast. FINDINGS: CEREBRUM: The ventricles are normal for age. No evidence of midline shift, mass lesion, hemorrhage or acute in farction. No extraaxial fluid collections are seen. The pituitary gland and suprasellar cistern are normal in configuration. WHITE MATTER: Minimal occasional white matter T2 prolongation, mainly in the periventricular regions with a couple small foci in the subcortical right frontal region. POSTERIOR FOSSA: The cerebellum and brainstem are intact. The 4th ventricle is midline. The cerebellopontine angle is unremarkable. The cerebellar tonsils are normal in position. DIFFUSION IMAGING: No focal areas of restricted diffusion are seen. No evidence of acute infarction. EXTRACRANIAL: The visualized portions of the orbits are normal. There is minimal fluid in the sphenoid sinus.. CONCLUSION: Mild nonspecific white matter signal change. Anival Moore MD on April 20, 2017 at 17:19 Board Certified Radiologist. This report was verified electronically.
[2017-04-20] MEDS: CEFEPIME 1000 MG/NS 100 ML IV SCH ×2 (17:59)
[2017-04-20] MEDS: ACYCLOVIR IV SCH (22:09)
[2017-04-20] MEDS: SODIUM CHLORIDE 0.9% IV SCH (22:09)
[2017-04-20] MEDS: ACETAMINOPHEN 325 MG TAB PO PRN (22:19)
[2017-04-20] MEDS: MORPHINE SULFATE 2 MG/ML INJ IV PUSH PRN (22:19)
[2017-04-21] VITALS (25 sets, daily range): BP systolic 135–180; BP diastolic 55–87; PULSE 61–78; RESP 11–47; TEMP 97.4–99.1; O2SAT 93–100
[2017-04-21] MEDS: CHLORHEXIDINE GLUCONATE 2 % 1 PACK (2 CLOTHS)(taper/protocol) TOPICAL SCH (03:40)
[2017-04-21 05:04] LABS: INTERNATIONAL NORMALIZED RATIO 1.2 RATIO; PROTHROMBIN TIME - PATIENT 13.4 SEC (9.8-11.6)
[2017-04-21] MEDS: INSULIN ASPART SUPPLEMENTAL SCALE SQ SCH ×4 (08:00→20:08)
--- NOTE | 2017-04-21 08:12 | HHI.NPPN ---
Subjective Renal Failure: Chronic, End Stage Renal Disease Interval History Blood cultures positive for MSSA. She is afebrile today. She is sleeping, slightly confused upon awakening. Due for dialysis. (Petrona Sexton) Review of Systems General Constitutional: Fever, Chills, Fatigue (Petrona Sexton) Musculoskeletal MS: Pain/Stiffness MS Remarks neck pain (Petrona Sexton) Neuro Neuro: Headache (Petrona Sexton) Objective Data Data Vital Signs Date Time Temp Pulse Resp B/P (MAP) Pulse Ox O2 Delivery O2 Flow Rate FiO2 04/21/17 07:50 97.9 04/21/17 06:00 64 14 142/55 (84) 99 04/21/17 06:00 64 04/21/17 05:00 64 16 180/83 (115) 99 04/21/17 04:00 61 04/21/17 04:00 98.1 61 18 177/79 (111) 99 04/21/17 02:01 64 14 135/58 (83) 99 04/21/17 02:00 76 04/21/17 00:01 70 23 139/55 (83) 99 04/21/17 00:00 66 04/20/17 23:19 22 04/20/17 22:24 22 04/20/17 22:01 72 28 152/72 (98) 100 04/20/17 22:00 69 04/20/17 21:01 66 44 131/49 (76) 100 04/20/17 20:01 98.8 68 40 136/59 (84) 100 04/20/17 20:00 76 04/20/17 19:40 100 Nasal Cannula 3.00 04/20/17 19:01 70 19 166/69 (101) 99 04/20/17 19:00 100 Nasal Cannula 2.00 04/20/17 18:00 70 04/20/17 18:00 74 34 169/85 (113) 04/20/17 16:00 98.4 74 23 152/60 (90) 04/20/17 16:00 74 04/20/17 15:00 66 24 153/59 (90) 04/20/17 14:00 64 34 161/72 (101) 96 04/20/17 14:00 64 04/20/17 13:00 62 13 123/56 (78) 04/20/17 12:00 60 04/20/17 12:00 98.0 60 14 124/57 (79) 04/20/17 11:00 64 31 119/62 (81) 04/20/17 10:00 62 28 153/71 (98) 98 04/20/17 10:00 62 04/20/17 09:00 60 29 139/64 (89) 98 04/20/17 08:14 98 Nasal Cannula 2.00 (Petrona Sexton) -: 04/20/17 0422 04/20/17 0422 Microbiology 04/20/17 Influenza Types A,B Antigen ([facility]) - Final, Complete NEGATIVE FOR FLU A AND B ANTIGEN.... Imaging Last 72 hours Impressions Brain MRI 04/20/17 0000 Signed Impressions: Service Date/Time: April 16:28 - CONCLUSION: Mild nonspecific white matter signal change. Anival Moore MD Head CT 04/19/17957 Signed Impressions: Service Date/Time: Wednesday, April 19, 2017 11:00 - CONCLUSION: Negative for acute process. There is no sinus disease. Clayton Romero MD FACR Cervical Spine CT 04/19/17957 Signed Impressions: Service Date/Time: Wednesday, April 19, 2017 11:00 - CONCLUSION: 1. There is moderate to severe multilevel degenerative disc disease with possible canal stenosis at C3-C4, C5-C6, and C6-C7, as above. There are additional areas of mild neural foraminal narrowing. These findings could be better delineated with MRI, if needed. 2. No acute cervical spine abnormality is identified. Anival Anderson MD Chest X-Ray 04/19/17 0942 Signed Impressions: Service Date/Time: Wednesday, April 19, 2017 10:30 - CONCLUSION: Moderate congestive failure. Clayton Romero MD FACR (Petrona Sexton) Physical Exam General Appearance: Well Developed, No Acute Distress, Comfortable, Malnourished (Petrona Sexton) Eyes Eye Exam: Pupils Equal (Petrona Sexton) Throat Throat Exam: Oral Mucosa [place] & Moist (Petrona Sexton) Neck Neck Exam: Nuchal Rigidity (Petrona Sexton) Pulmonary Resp Exam: Clear Bilaterally, Breath Sounds Equal, No Distress (Petrona Sexton) Cardiology CV Exam: Regular, Normal Sinus Rhythm, Good Perfusion (Petrona Sexton) Gastrointestinal/Abdomen GI Exam: Soft, Non-Tender, Bowel Sounds Present (Petrona Sexton) Musculoskeletal MS Exam: Joints Intact, Good Strength (Petrona Sexton) Integumentary Skin Exam: Clear, Warm, Dry, Intact (Petrona Sexton) Extremeties Extremities Exam: No Edema, Pedal Pulses Palpable Extremeties Remarks right arm AVF, + thrill, bruit; aneurism is present (Petrona Sexton) Neurologic Neuro Exam: Alert, Awake, Oriented, Speech Clear, Moving All Extremities (Petrona Sexton) Psychiatric Psych Exam: Appropriate Responses (Petrona Sexton) Assessment/Plan Discussed Condition With: Patient Assessment Summary: Anemia of CKD, Hypertension, Diabetes Mellitus, End Stage Renal Disease Problem List: (1) ESRD (end stage renal disease) ICD Codes: N18.6 - End-stage renal disease Status: Acute Plan: Typical MWF HD She is due for treatment today Intermittently obtain metabolic panel No dietary protein restriction Avoid IVF Avoid Left arm procedures, 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 (2) Fever ICD Codes: R50.9 - Fever, unspecified Status: Acute Plan: Sepsis, MSSA ID has evaluated, managing antibiotic therapy MRI reviewed, due for LP, INR has corrected She is on IV acyclovir, Daptomycin, and Cefepime (3) Hyperkalemia ICD Codes: E87.5 - Hyperkalemia Status: Acute Plan: Due to renal failure corrected, monitor for recurrence (4) Hypertensive urgency, malignant ICD Codes: I16.0 - Hypertensive urgency Status: Acute Plan: BP improved, off nicardipine On oral medications (5) Chest pain ICD Codes: R07.9 - Chest pain, unspecified Status: Acute Plan: Work up per medical team May be due to hypertensive urgency (6) Anemia ICD Codes: D64.9 - Anemia Status: Acute Plan: Epogen not required (7) Metabolic bone disease ICD Codes: E88.9 - Metabolic bone disease; M90.80 - Osteopathy in diseases classified elsewhere, unspecified site Status: Acute Plan: Continue Renvela, intermittently monitor phosphorus level (8) Diabetes mellitus type 2 with complications ICD Codes: E11.8 - Type 2 diabetes mellitus with manifestations Status: Acute Plan: Insulin as needed, goal 140-180 mg/dL. (Petrona Sexton) Plan patient was seen and examined. To have dialysis today. ID is managing antibiotics, coverage may be narrowed. Blood culture grew Staph aureus. (Louis Fagan MD) Petrona Sexton Apr 21, 2017 08:12 Louis Fagan MD Apr 21, 2017 12:46
[2017-04-21 09:49] LABS: HSV 1 PCR BLOOD Negative (Negative); HSV 2 PCR BLOOD Negative (Negative)
--- NOTE | 2017-04-21 09:51 | PD.RAD ---
Post Procedure Progress Note Pre Procedure Diagnosis: (1) Fever (2) Neck pain Post Procedure Diagnosis: (1) Fever (2) Neck pain Procedure Date: Apr 21, 2017 Supervising Radiologist: Cedrick Khan Proceduralist/Assist: RT Jorge(R) Anesthesia: Local Plan of Activity Patient to Unit: Nursing Unit Patient Condition: Good See PACS Report for procedural detail/treatment Spinal Procedure Lumbar Puncture L3-L4 Fluid Removal (CCs): 20 Fluid Description: Clear Puncture Time: 09:31 Findings: OP: 19 Cedrick Khan MD Apr 21, 2017 09:51
[2017-04-21 10:46] LABS: GROSS BLOOD TUBE #1 0 (0); SUPERNATE COLOR TUBE #1 CLEAR (CLEAR); SUPERNATE COLOR TUBE #2 CLEAR (CLEAR)
[2017-04-21 10:47] LABS: GROSS BLOOD TUBE #2 0 (0); GROSS BLOOD TUBE #3 0 (0); GROSS BLOOD TUBE #4 TRACE (0); SUPERNATE COLOR TUBE #3 CLEAR (CLEAR); SUPERNATE COLOR TUBE #4 CLEAR (CLEAR); VOLUME TUBE # 3 6.5 ML
[2017-04-21 11:16] LABS: CSF EOSINOPHILS 0 %; CSF LYMPHOCYTES 75 %; CSF MONOCYTES 0 %; CSF NEUTROPHILS 25 %; WBC TUBE #4 4 /MM3 (0-10)
--- NOTE | 2017-04-21 11:34 | HHI.PR ---
Subjective Remarks Nursing reports underwent her lumbar puncture this morning. Says that the patient is actually more sleepy after the procedure even though she did not receive any sedation for. Has been afebrile through the night. Patient herself says she feels sick but denies any specific complaints. Objective Vital Signs Date Time Temp Pulse Resp B/P (MAP) Pulse Ox O2 Delivery O2 Flow Rate FiO2 04/21/17 11: 97.4 04/21/17 10:20 68 22 170/74 (106) 97 04/21/17 10:00 72 04/21/17 08:01 98.0 70 35 176/81 (112) 98 04/21/17 08:00 72 04/21/17 07:50 97.9 04/21/17 07:01 64 11 173/68 (103) 04/21/17 07:00 98 Nasal Cannula 2.00 04/21/17 06:00 64 14 142/55 (84) 99 04/21/17 06:00 64 04/21/17 05:00 64 16 180/83 (115) 99 04/21/17 04:00 61 04/21/17 04:00 98.1 61 18 177/79 (111) 99 04/21/17 02:01 64 14 135/58 (83) 99 04/21/17 02:00 76 04/21/17 00:01 70 23 139/55 (83) 99 04/21/17 00:00 66 04/20/17 23:19 22 04/20/17 22:24 22 04/20/17 22:01 72 28 152/72 (98) 100 04/20/17 22:00 69 04/20/17 21:01 66 44 131/49 (76) 100 04/20/17 20:01 98.8 68 40 136/59 (84) 100 04/20/17 20:00 76 04/20/17 19:40 100 Nasal Cannula 3.00 04/20/17 19:01 70 19 166/69 (101) 99 04/20/17 19:00 100 Nasal Cannula 2.00 04/20/17 18:00 70 04/20/17 18:00 74 34 169/85 (113) 04/20/17 16:00 98.4 74 23 152/60 (90) 04/20/17 16:00 74 04/20/17 15:00 66 24 153/59 (90) 04/20/17 14:00 64 34 161/72 (101) 96 04/20/17 14:00 64 04/20/17 13:00 62 13 123/56 (78) 04/20/17 12:00 60 04/20/17 12:00 98.0 60 14 124/57 (79) I/O 04/20/17 04/20/17 04/20/17 04/21/17 04/21/17 04/21/17 07:00 15:00 23:00 07:00 15:00 23:00 Intake Total 248 ml 50.5 ml 520 ml 60 ml Output Total 0 ml Balance 248 ml 50.5 ml 520 ml 60 ml Intake Oral 120 ml 320 ml 60 ml IV Total 128 ml 50.5 ml 200 ml Output Urine Total 0 ml # Voids 0 0 # Bowel Movements 3 0 0 Result Diagram: 04/20/172 04/20/17 0422 Imaging Last Impressions Brain MRI 04/20/17 0000 Signed Impressions: Service Date/Time: April 16:28 - CONCLUSION: Mild nonspecific white matter signal change. Anival Moore MD Head CT 04/19/17957 Signed Impressions: Service Date/Time: Wednesday, April 19, 2017 11:00 - CONCLUSION: Negative for acute process. There is no sinus disease. Clayton Romero MD FACR Cervical Spine CT 04/19/17957 Signed Impressions: Service Date/Time: Wednesday, April 19, 2017 11:00 - CONCLUSION: 1. There is moderate to severe multilevel degenerative disc disease with possible canal stenosis at C3-C4, C5-C6, and C6-C7, as above. There are additional areas of mild neural foraminal narrowing. These findings could be better delineated with MRI, if needed. 2. No acute cervical spine abnormality is identified. Anival Anderson MD Chest X-Ray 04/19/17 0942 Signed Impressions: Service Date/Time: Wednesday, April 19, 2017 10:30 - CONCLUSION: Moderate congestive failure. Clayton Romero MD FACR Objective Remarks Patient seen lying in bed, sleeping, hard to arouse but eventually wakes up with name calling. She actually falls asleep in the middle of our conversation. Abdomen is mildly tender to palpation diffusely and the patient does wake up when I do this, extraocular motions are intact, pupils are equal bilaterally, no tremors noted in extremities A/P Assessment and Plan Metabolic encephalopathy - Slightly recurring today - At this point differentials include uremia versus sepsis versus meningitis, hypertensive emergency has been ruled out as a possible cause since blood pressures have been stable - CT of head did not indicate any acute abnormality - Neuro checks - TSH, B12, folate wnl, RPR is nonreactive - continue abx as below - Status post LP - added on HSV DNA PCR for CSF after discussing with ID - CSF lab work otherwise is pending - Head MRI showing no acute abnormalities noted explained her fluctuating mental status, only notes Mild nonspecific white matter signal change. - fall precautions Bacteremia - new diagnosis - apparently MSSA is growing in the blood work - continue cefepime and daptomycin - ID following Uremia w/ End-stage renal disease on hemodialysis - dialysis scheduled for today - Cr improving - nephrology following Equivocal troponin elevation - Likely secondary to renal failure, hypertensive emergency Diabetes - Accu-Cheks with sliding scale insulin Neck pain on presentation - CT scan shows that there is [id number] degenerative disc disease with possible canal stenosis at C3 to C4, C5 to C6, and C6 to C7. - Patient can continue with outpatient MRI and follow-up with primary medical doctor Hypertension, hyperlipidemia, - Continue home medications paroxysmal atrial fibrillation - INR was reversed down to 1.2 for LP this morning - Warfarin consult as mentioned below to be started DVT prevention - SCDs - Starting Lovenox today given high risk with above conditions - We'll start patient back on Coumadin with warfarin consult for her A. fib given she is on antibiotics now Nursing reports the patient is saturating on room air, discontinuing oxygen and oximetry, saturations to be checked with vital signs routinely otherwise. Jeff Garcia MD Apr 21, 2017 11:34
--- NOTE | 2017-04-21 12:51 | RADRPT ---
EXAM DATE/TIME: 04/21/2017 08:41 [facility] COMPARISON: No previous studies available for comparison. INDICATIONS : Patient presents with fever and altered mental status in need of lumbar puncture to rule out meningit is. MEDICAL HISTORY : Cataracts Glaucoma ESRD Cancer Anemia SURGICAL HISTORY : Left lens implant Left arm fistula Sarcoma removed Agustina Hysterectomy 1989 ENCOUNTER: Initial ACUITY: 2 days PAIN SCORE: 0/10 LOCATION: N/A LUMBAR PUNCTURE TIME: 09:31 hours FLUORO TIME: 1.3 minutes IMAGE SERIES: 0 ACCESS LEVEL: L3-4 OPENING PRESSURE: 19 cm of water CLOSING PRESSURE: Not requested. FLUID: 20 cc of clear CSF was collected and sent to the laboratory for analysis. PROCEDURE : 1. Fluoroscopic guided lumbar puncture. 2. Recording of opening pressure. The risks, benefits and alternatives to the procedure were explained and verbal and written consent w as obtained. The site was prepped in sterile fashion. Full sterile technique was used, including ca p, mask, sterile gloves and gown and a large sterile sheet. Hand hygiene and 2% chlorhexidine and/or betadine/alcohol prep was utilized per protocol for cutaneous antisepsis. The skin and subcutaneous tissues were infiltrated with local anesthetic solution. With fluoroscopic guidance the lumbar thecal sac was punctured at the above level described above and the opening pressure was recorded. The above described fluid was removed without difficulty. The patient tolerated the procedure well and there were no complications. CONCLUSION: Uncomplicated fluoroscopically guided lumbar puncture with pressures as above. Cedrick Khan MD on April 21, 2017 at 12:50 Board Certified Radiologist. This report was verified electronically.
[2017-04-21] MEDS: GELATIN 12 MM/7 MM FOAM TOP PRN (15:48)
[2017-04-21] MEDS: CEFEPIME 1000 MG/NS 100 ML IV SCH ×2 (16:18)
[2017-04-21] MEDS: DAPTOMYCIN IV SCH (19:54)
[2017-04-21] MEDS: SODIUM CHLORIDE 0.9% IV SCH ×2 (19:54→20:43)
[2017-04-21] MEDS: MORPHINE SULFATE 2 MG/ML INJ IV PUSH PRN (20:12)
[2017-04-21] MEDS: ACYCLOVIR IV SCH (20:43)
[2017-04-22] VITALS (16 sets, daily range): BP systolic 106–176; BP diastolic 48–92; PULSE 68–94; RESP 17–39; TEMP 98.1–100; O2SAT 94–99
[2017-04-22] MEDS: CHLORHEXIDINE GLUCONATE 2 % 1 PACK (2 CLOTHS)(taper/protocol) TOPICAL SCH (04:00)
[2017-04-22 06:00] LABS: INTERNATIONAL NORMALIZED RATIO 1.1 RATIO; PROTHROMBIN TIME - PATIENT 12.3 SEC (9.8-11.6)
[2017-04-22] MEDS: INSULIN ASPART SUPPLEMENTAL SCALE SQ SCH ×4 (08:18→21:00)
[2017-04-22 08:52] LABS: HSV 1,PCR Negative (Negative)
--- NOTE | 2017-04-22 11:40 | HHI.PR ---
Subjective Remarks Nursing reports that the patient is demonstrating intermittent confusion on a cognitive basis - apparently she is sticking food items in her purse such as grits. Otherwise no deterioration since last night, no fevers. And I speak to the patient today, she is on the phone actually holding a conducive conversation with someone. When asked where she is, she confirms [facility], she says it is April 2009, and then she gets very anxious suddenly and says that "[place] is almost here" and also says "this [place] is going to be fd up." She doesn't specify any reasons and continues talking on the phone. Objective Vital Signs Date Time Temp Pulse Resp B/P (MAP) Pulse Ox O2 Delivery O2 Flow Rate FiO2 04/22/17 08:00 98.3 72 20 174/92 (119) 96 04/22/17 06:00 78 04/22/17 04:00 98.8 70 27 176/79 (111) 99 04/22/17 04:00 70 04/22/17 02:00 68 04/22/17 00:00 69 04/21/17 23:44 99.0 69 26 141/60 (87) 100 04/21/17 22:32 99 Nasal Cannula 2.00 04/21/17 22:00 78 04/21/17 20:11 94 21 04/21/17 20:00 73 04/21/17 20:00 98.9 73 20 156/75 (102) 97 04/21/17 20:00 97 Room Air 04/21/17 18:00 72 04/21/17 16:30 76 15 143/59 (87) 94 04/21/17 16:00 99.1 04/21/17 16:00 94 21 04/21/17 16:00 78 04/21/17 14:00 76 04/21/17 13:42 76 47 160/76 (104) 04/21/17 12:00 70 22 173/87 (115) 93 04/21/17 12:00 70 I/O 04/21/17 04/21/17 04/21/17 04/22/17 04/22/17 04/22/17 07:00 15:00 23:00 07:00 15:00 23:00 Intake Total 60 ml 120 ml 220 ml 60 ml Output Total 0 ml 2000 ml Balance 60 ml 120 ml -1780 ml 60 ml Intake Oral 60 ml 120 ml 120 ml 60 ml IV Total 100 ml Output Urine Total 0 ml 0 ml Hemodialysis 2000 ml # Voids 0 # Bowel Movements 0 0 0 Result Diagram: 04/20/1742104/20/17421 Objective Remarks seen in room sitting up in chair talking on the phone Otherwise the patient is in no acute distress, clear lungs bilaterally Has good neck range of motion, able to do chin to chest, follows commands A/P Assessment and Plan Encephalopathy - Improved since admission but still Waxing and waning - uremia w/ possible superimposed hospital induced delirium - CT of head did not indicate any acute abnormality - Neuro checks - TSH, B12, folate wnl, RPR is nonreactive - continue abx as below - Status post LP - CSF cultures no growth to date - CSF lab work otherwise is pending - Head MRI showing no acute abnormalities noted explained her fluctuating mental status, only notes Mild nonspecific white matter signal change. - fall precautions MSSA Bacteremia - ID following, on cefazolin and daptomycin Uremia w/ End-stage renal disease on hemodialysis - s/p dialysis, nephrology following - i'm repeating labs today Equivocal troponin elevation - stable mildly elevated levels likely 2/2 ESR, no angina clinically Diabetes - Accu-Cheks with sliding scale insulin Neck pain on presentation - CT scan shows that there is srnvwajt-sn-rgcouw degenerative disc disease with possible canal stenosis at C3 to C4, C5 to C6, and C6 to C7. - Patient can continue with outpatient MRI and follow-up with primary medical doctor Hypertension, hyperlipidemia, - Continue home medications paroxysmal atrial fibrillation - Warfarin consult DVT prevention - lovenox while inpt - warfarin consult for her A. fib given she is on antibiotics now Will transfer down to floor pending stable labs today. Jeff Garcia MD Apr 22, 2017 11:40
[2017-04-22 12:59] LABS: BICARBONATE 27.7 MEQ/L (21.0-32.0)
[2017-04-22] MEDS: WARFARIN SOD 7.5 MG TAB PO SCH (18:34)
--- NOTE | 2017-04-22 18:53 | HHI.NPPN ---
Subjective Renal Failure: Chronic, End Stage Renal Disease Review of Systems General Constitutional: Fever, Chills, Fatigue Musculoskeletal MS: Pain/Stiffness MS Remarks neck pain Neuro Neuro: Headache Objective Data Data 04/22/17 04/23/17 19:00 07:00 Output Total 0 ml Balance 0 ml Output Urine Total 0 ml Stool Total 0 ml # Voids 0 Vital Signs Date Time Temp Pulse Resp B/P (MAP) Pulse Ox O2 Delivery O2 Flow Rate FiO2 04/22/17 18:00 92 04/22/17 16:00 98.1 82 17 134/68 (90) 96 04/22/17 16:00 82 04/22/17 14:00 82 04/22/17 13:54 86 04/22/17 13:30 80 04/22/17 12:00 78 04/22/17 12:00 98.3 78 17 133/48 (76) 96 04/22/17 10:00 80 04/22/17 08:00 98.3 72 20 174/92 (119) 96 04/22/17 08:00 70 04/22/17 07:00 98 Nasal Cannula 2.00 04/22/17 06:00 78 04/22/17 04:00 98.8 70 27 176/79 (111) 99 04/22/17 04:00 70 04/22/17 02:00 68 04/22/17 00:00 69 04/21/17 23:44 99.0 69 26 141/60 (87) 100 04/21/17 22:32 99 Nasal Cannula 2.00 04/21/17 22:00 78 04/21/17 20:11 94 21 04/21/17 20:00 73 04/21/17 20:00 98.9 73 20 156/75 (102) 97 04/21/17 20:00 97 Room Air -: 04/20/17 0422 04/22/17 1220 Microbiology 04/22/17 Aerobic Blood Culture, Received Pending 04/22/17 Anaerobic Blood Culture, Received Pending 04/22/17 Aerobic Blood Culture, Received Pending 04/22/17 Anaerobic Blood Culture, Received Pending Physical Exam General Appearance: Well Developed, No Acute Distress, Comfortable, Malnourished Eyes Eye Exam: Pupils Equal Throat Throat Exam: Oral Mucosa [place] & Moist Neck Neck Exam: Nuchal Rigidity Pulmonary Resp Exam: Clear Bilaterally, Breath Sounds Equal, No Distress Cardiology CV Exam: Regular, Normal Sinus Rhythm, Good Perfusion Gastrointestinal/Abdomen GI Exam: Soft, Non-Tender, Bowel Sounds Present Musculoskeletal MS Exam: Joints Intact, Good Strength Integumentary Skin Exam: Clear, Warm, Dry, Intact Extremeties Extremities Exam: No Edema, Pedal Pulses Palpable Neurologic Neuro Exam: Alert, Awake, Oriented, Speech Clear, Moving All Extremities Psychiatric Psych Exam: Appropriate Responses Assessment/Plan Discussed Condition With: Patient Assessment Summary: Anemia of CKD, Hypertension, Diabetes Mellitus, End Stage Renal Disease Problem List: (1) ESRD (end stage renal disease) ICD Codes: N18.6 - End-stage renal disease Status: Acute Plan: Typical MWF HD She had treatment yesterday 2 L off Intermittently obtain metabolic panel No dietary protein restriction Avoid IVF follow BC treated for MSSA Avoid Left arm procedures, AVF has aneurysm Dr. Fagan to follow on Monday (2) Fever ICD Codes: R50.9 - Fever, unspecified Status: Acute Plan: Sepsis, MSSA ID has evaluated, managing antibiotic therapy MRI reviewed, due for LP, INR has corrected She is on , Daptomycin, and Cefazolin (3) Hyperkalemia ICD Codes: E87.5 - Hyperkalemia Status: Acute Plan: Due to renal failure corrected, monitor for recurrence (4) Hypertensive urgency, malignant ICD Codes: I16.0 - Hypertensive urgency Status: Acute Plan: BP improved, off nicardipine On oral medications (5) Chest pain ICD Codes: R07.9 - Chest pain, unspecified Status: Acute Plan: Work up per medical team May be due to hypertensive urgency (6) Anemia ICD Codes: D64.9 - Anemia Status: Acute Plan: Epogen not required (7) Metabolic bone disease ICD Codes: E88.9 - Metabolic bone disease; M90.80 - Osteopathy in diseases classified elsewhere, unspecified site Status: Acute Plan: Continue Renvela, intermittently monitor phosphorus level (8) Diabetes mellitus type 2 with complications ICD Codes: E11.8 - Type 2 diabetes mellitus with manifestations Status: Acute Plan: Insulin as needed, goal 140-180 mg/dL. Ana Paula Salinas MD Apr 22, 2017 18:53
--- NOTE | 2017-04-22 23:05 | HHI.IDPN ---
Subjective Subjective Remarks Fevers improved Pt is anxious No nausea, vomiting Antibiotics IV Vancomycin, Cefepime Lines Peripheral Past Medical History ESRD Allergies: Coded Allergies: azithromycin (Verified Allergy, Severe, 04/19/17) vancomycin (Verified Allergy, Severe, PT VERIFIED RASH WITH VANCOMYCIN., 04/19/17) Review of Systems Constitutional Constitutional Remarks No fevers Objective . Vital Signs Date Time Temp Pulse Resp B/P (MAP) Pulse Ox O2 Delivery O2 Flow Rate FiO2 04/22/17 22:00 92 04/22/17 20:54 100.0 94 39 106/52 (70) 94 04/22/17 20:47 96 21 04/22/17 20:00 92 04/22/17 19:00 Room Air 04/22/17 18:00 92 04/22/17 16:00 98.1 82 17 134/68 (90) 96 04/22/17 16:00 82 04/22/17 14:00 82 04/22/17 13:54 86 04/22/17 13:30 80 04/22/17 12:00 78 04/22/17 12:00 98.3 78 17 133/48 (76) 96 04/22/17 10:00 80 04/22/17 08:00 98.3 72 20 174/92 (119) 96 04/22/17 08:00 70 04/22/17 07:00 98 Nasal Cannula 2.00 04/22/17 06:00 78 04/22/17 04:00 98.8 70 27 176/79 (111) 99 04/22/17 04:00 70 04/22/17 02:00 68 04/22/17 00:00 69 04/21/17 23:44 99.0 69 26 141/60 (87) 100 04/22/17 04/22/17 04/23/17 15:00 23:00 07:00 Intake Total 210 ml Output Total 0 ml Balance 210 ml Intake Oral 110 ml IV Total 100 ml Output Urine Total 0 ml Stool Total 0 ml # Voids 0 # Bowel Movements 0 . Laboratory Tests Test 04/22/17 12:20 Blood Urea Nitrogen 62 MG/DL Creatinine 7.70 MG/DL Random Glucose 188 MG/DL Calcium Level 8.3 MG/DL Sodium Level 131 MEQ/L Potassium Level 4.0 MEQ/L Chloride Level 91 MEQ/L Carbon Dioxide Level 27.7 MEQ/L Anion Gap 12 MEQ/L Estimat Glomerular Filtration Rate 6 ML/MIN Microbiology Date/Time Source Procedure Growth Status 04/22/17 09:00 Blood Peripheral Aerobic Blood Culture Pending Received 04/22/17 09:00 Blood Peripheral Anaerobic Blood Culture Pending Received 04/22/17 08:45 Blood Peripheral Aerobic Blood Culture Pending Received 04/22/17 08:45 Blood Peripheral Anaerobic Blood Culture Pending Received 04/21/17 09:31 Cerebral Spinal Fluid Lumbar Puncture Fungal Smear Pending Received 04/21/17 09:31 Cerebral Spinal Fluid Lumbar Puncture Fungal Culture Pending Received 04/21/17 09:31 Cerebral Spinal Fluid Lumbar Puncture Gram Stain - Final Resulted 04/21/17 09:31 Cerebral Spinal Fluid Lumbar Puncture CSF Culture - Preliminary NO GROWTH IN 24 HOURS. Resulted 04/20/17 09:00 Nasal Aspirate Influenza Types A,B Antigen ([facility]) - Final NEGATIVE FOR FLU A AND B ANTIGEN.... Complete Physical Exam GENERAL: This is a chronically illpatient, in no apparent distress. SKIN: No rashes, ecchymoses or lesions. Cool and dry. HEAD: Atraumatic. Normocephalic. No temporal or scalp tenderness. EYES: Pupils equal round and reactive. Extraocular motions intact. No scleral icterus. No injection or drainage. ENT: Nose without bleeding, purulent drainage or septal hematoma. Throat without erythema, tonsillar hypertrophy or exudate. Uvula midline. Airway patent. NECK: Trachea midline. No JVD or lymphadenopathy. Supple, nontender, no meningeal signs. CARDIOVASCULAR: Regular rate and rhythm without murmurs, gallops, or rubs. RESPIRATORY: Clear to auscultation. Breath sounds equal bilaterally. No wheezes , rales, or rhonchi. GASTROINTESTINAL: Abdomen soft, non-tender, nondistended. No hepato-splenomegaly , or palpable masses. No guarding. MUSCULOSKELETAL: Extremities without clubbing, cyanosis, or edema. No joint tenderness, effusion, or edema noted. No calf tenderness. Negative Homans sign bilaterally.Left arn functioning fistula NEUROLOGICAL: Awake and alert. Cranial nerves II through XII intact. Motor and sensory grossly within normal limits. Five out of 5 muscle strength in all muscle groups. Normal speech. Assessment & Plan Diagnosis: (1) Fever ICD Codes: R50.9 - Fever, unspecified Status: Acute Plan: Follow blood cultures (2) ESRD (end stage renal disease) ICD Codes: N18.6 - End-stage renal disease Status: Chronic (3) Diabetes mellitus type 2 with complications ICD Codes: E11.8 - Type 2 diabetes mellitus with manifestations Status: Chronic (4) Septicemia due to Staphylococcus aureus ICD Codes: A41.01 - Sepsis due to Methicillin susceptible Staphylococcus aureus Status: Acute Plan: Follow blood cultures Check Echocardiogram Continue IV Daptomycin Stop Cefepime and Acyclovir Start Cefazolin 1 g IV q 12 Patricia Jarrett MD Apr 22, 2017 23:05
[2017-04-23] VITALS (14 sets, daily range): BP systolic 68–157; BP diastolic 37–80; PULSE 67–126; RESP 13–47; TEMP 97.8–98.2; O2SAT 92–99
[2017-04-23] MEDS ORDERED: SODIUM CHLORID 0.9% 500 ML INJ 500 ML IV ONE (00:15)
[2017-04-23] MEDS: CHLORHEXIDINE GLUCONATE 2 % 1 PACK (2 CLOTHS)(taper/protocol) TOPICAL SCH (04:00)
[2017-04-23] MEDS: ENOXAPARIN SODIUM 30 MG/0.3 ML SYRINGE SQ SCH (08:10)
[2017-04-23] MEDS: INSULIN ASPART SUPPLEMENTAL SCALE SQ SCH ×4 (08:13→19:56)
[2017-04-23] MEDS ORDERED: OLANZapine IM 10 MG VIAL IM ONE (14:00)
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
[2017-04-23] MEDS: WARFARIN SOD 7.5 MG TAB PO SCH ×2 (17:16→17:25)
--- NOTE | 2017-04-23 18:03 | ECHRPT ---
Indication: SEPSIS, ENDOCARDITIS CONCLUSIONS Normal left ventricular size. Mild concentric left ventricular hypertrophy. The left ventricular systolic function is hyperdynamic with an estimated ejection fraction in the ra nge of 65- 70%. The right ventricle is moderately dilated. The left atrial size is moderately dilated. The right atrial size is unxexxxd-fz-ccwhovof dilated. Mild thickening of the mitral valve leaflets. Severe mitral annular calcification. Moderate mitral valve regurgitation. Aortic valve sclerosis is present. There is moderate tricuspid regurgitation. The estimated pulmonary arterial pressure is 60 mmHg. Vegetation in the mitral valve cannot be excluded BP: 101 / 49 HR: Rhythm: Sinus Technical Quality:Fair FINDINGS LEFT VENTRICLE Normal left ventricular size. Mild concentric left ventricular hypertrophy. The left ventricular systolic function is hyperdynamic with an estimated ejection fraction in the ra nge of 65- 70%. RIGHT VENTRICLE The right ventricle is moderately dilated. LEFT ATRIUM The left atrial size is moderately dilated. RIGHT ATRIUM The right atrial size is yiyjzrms-eg-vguuorfh dilated. ATRIAL SEPTUM Normal atrial septal thickness without atrial level shunting by limited color doppler interrogation. AORTA The aortic root and proximal ascending aorta are normal in size on limited imaging. MITRAL VALVE Mild thickening of the mitral valve leaflets. Moderate to severe mitral annular calcification. Rjxk-kx-usirmnql mitral valve regurgitation. AORTIC VALVE Trileaflet aortic valve. Aortic valve sclerosis is present. TRICUSPID VALVE There is moderate tricuspid regurgitation. The estimated pulmonary arterial pressure is 60 mmHg. PULMONARY VALVE The pulmonary valve is not well visualized. VESSELS The inferior vena cava is normal in size. PERICARDIUM No pericardial effusion. Corwin Corral MD (Electronically Signed) Final Date:23 April 2017 18:02
[2017-04-23] MEDS: SODIUM CHLORIDE 0.9% IV SCH ×2 (19:55)
[2017-04-23] MEDS: DAPTOMYCIN IV SCH (19:55)
[2017-04-23] MEDS: CEFAZOLIN IV SCH (19:55)
[2017-04-23] MEDS ORDERED: CEFAZOLIN IV SCH (21:00)
[2017-04-23] MEDS ORDERED: SODIUM CHLORIDE 0.9% IV SCH (21:00)
[2017-04-23] MEDS ORDERED: OLANZapine IM 10 MG VIAL IM PRN (21:00)
[2017-04-24] VITALS (22 sets, daily range): BP systolic 86–145; BP diastolic 47–76; PULSE 48–142; RESP 13–47; TEMP 97.6–99.1; O2SAT 92–100
[2017-04-24] MEDS: CHLORHEXIDINE GLUCONATE 2 % 1 PACK (2 CLOTHS)(taper/protocol) TOPICAL SCH (04:00)
[2017-04-24 05:08] LABS: CHLORIDE 94 MEQ/L (98-107); INTERNATIONAL NORMALIZED RATIO 1.4 RATIO; POTASSIUM 4.2 MEQ/L (3.5-5.1); PROTHROMBIN TIME - PATIENT 15.2 SEC (9.8-11.6); SODIUM (NA) 134 MEQ/L (136-145)
[2017-04-24 05:14] LABS: ANION GAP 19 MEQ/L (5-15); BICARBONATE 21.2 MEQ/L (21.0-32.0)
[2017-04-24 05:33] LABS: ALKALINE PHOSPHATASE 151 U/L (45-117); ALT (GPT) 8 U/L (10-53); AST (GOT) 41 U/L (15-37); BLOOD UREA NITROGEN 106 MG/DL (7-18); GLOMERULAR FILTRATION RATE 4 ML/MIN (>89); TOTAL BILIRUBIN ADULT 0.7 MG/DL (0.2-1.0)
[2017-04-24] MEDS: INSULIN ASPART SUPPLEMENTAL SCALE SQ SCH ×4 (08:00→20:58)
[2017-04-24] MEDS: SODIUM CHLORIDE 0.9% IV SCH (09:00)
[2017-04-24] MEDS: CEFAZOLIN IV SCH (09:00)
--- NOTE | 2017-04-24 09:29 | HHI.IDPN ---
Subjective Subjective Remarks Very confused No fever in 24 hrs Not short of breath Antibiotics IV Daptomycin and Cefazolin Lines Peripheral Past Medical History ESRD Allergies: Coded Allergies: azithromycin (Verified Allergy, Severe, 04/19/17) vancomycin (Verified Allergy, Severe, PT VERIFIED RASH WITH VANCOMYCIN., 04/19/17) Review of Systems Constitutional Constitutional Remarks No fevers Neurologic Neurologic: Confused Objective . Vital Signs Date Time Temp Pulse Resp B/P (MAP) Pulse Ox O2 Delivery O2 Flow Rate FiO2 04/24/17 06:00 76 04/24/17 04:00 76 04/24/17 04:00 98.7 76 31 135/63 (87) 100 04/24/17 02:00 74 04/24/17 00:00 74 04/24/17 00:00 99.1 74 37 138/63 (88) 100 04/23/17 22:00 74 04/23/17 20:50 99 Nasal Cannula 2.00 04/23/17 20:00 74 04/23/17 20:00 74 28 157/80 (105) 98 04/23/17 19:00 Nasal Cannula 2.00 04/23/17 17:38 97.8 34 04/23/17 12:00 68 47 138/61 (86) 92 . Laboratory Tests Test 04/22/17 12:20 04/24/17 04:10 Blood Urea Nitrogen 62 MG/DL 106 MG/DL Creatinine 7.70 MG/DL 11.00 MG/DL Random Glucose 188 MG/DL 168 MG/DL Calcium Level 8.3 MG/DL 7.9 MG/DL Sodium Level 131 MEQ/L 134 MEQ/L Potassium Level 4.0 MEQ/L 4.2 MEQ/L Chloride Level 91 MEQ/L 94 MEQ/L Carbon Dioxide Level 27.7 MEQ/L 21.2 MEQ/L Anion Gap 12 MEQ/L 19 MEQ/L Estimat Glomerular Filtration Rate 6 ML/MIN 4 ML/MIN Total Protein 7.4 GM/DL Albumin 2.6 GM/DL Alkaline Phosphatase 151 U/L Aspartate Amino Transf (AST/SGOT) 41 U/L Alanine Aminotransferase (ALT/SGPT) 8 U/L Total Bilirubin 0.7 MG/DL Microbiology Date/Time Source Procedure Growth Status 04/22/17 09:00 Blood Peripheral Aerobic Blood Culture - Preliminary Gram Positive Cocci Resulted 04/22/17 09:00 Anaerobic Blood Culture - Preliminary Gram Positive Cocci Resulted 04/22/17 08:45 Blood Peripheral Aerobic Blood Culture - Preliminary Gram Positive Cocci Resulted 04/22/17 08:45 Anaerobic Blood Culture - Preliminary Gram Positive Cocci Resulted 04/21/17 09:31 Cerebral Spinal Fluid Lumbar Puncture Fungal Smear - Final NO FUNGAL ELEMENTS SEEN. Resulted 04/21/17 09:31 Cerebral Spinal Fluid Lumbar Puncture Fungal Culture Pending Resulted 04/21/17 09:31 Cerebral Spinal Fluid Lumbar Puncture Gram Stain - Final Resulted 04/21/17 09:31 Cerebral Spinal Fluid Lumbar Puncture CSF Culture - Preliminary NO GROWTH IN 48 HOURS. Resulted Physical Exam GENERAL: This is a chronically ill patient, very confused SKIN: No rashes, ecchymoses or lesions. Cool and dry. HEAD: Atraumatic. Normocephalic. No temporal or scalp tenderness. EYES: Pupils equal round and reactive. Extraocular motions intact. No scleral icterus. No injection or drainage. ENT: Nose without bleeding, purulent drainage or septal hematoma. Throat without erythema, tonsillar hypertrophy or exudate. Uvula midline. Airway patent. NECK: Trachea midline. No JVD or lymphadenopathy. Supple, nontender, no meningeal signs. CARDIOVASCULAR: Regular rate and rhythm without murmurs, gallops, or rubs. RESPIRATORY: Clear to auscultation. Breath sounds equal bilaterally. No wheezes , rales, or rhonchi. GASTROINTESTINAL: Abdomen soft, non-tender, nondistended. No hepato-splenomegaly , or palpable masses. No guarding. MUSCULOSKELETAL: Extremities without clubbing, cyanosis, or edema. No joint tenderness, effusion, or edema noted. No calf tenderness. Negative Homans sign bilaterally.Left arm functioning fistula NEUROLOGICAL: Awake and alert. Confused- trying to get out of bed. Combative Assessment & Plan Diagnosis: (1) Fever ICD Codes: R50.9 - Fever, unspecified Status: Acute Plan: Repeat blood cultures also positive (2) ESRD (end stage renal disease) ICD Codes: N18.6 - End-stage renal disease Status: Chronic (3) Diabetes mellitus type 2 with complications ICD Codes: E11.8 - Type 2 diabetes mellitus with manifestations Status: Chronic (4) Septicemia due to Staphylococcus aureus ICD Codes: A41.01 - Sepsis due to Methicillin susceptible Staphylococcus aureus Status: Acute Plan: Follow blood cultures Reviewed Echocardiogram Continue IV Daptomycin Continue IV Cefazolin Patient has persistently positive blood cultures- she is going to need a DANN Discussed with Patricia Sesay MD Apr 24, 2017 09:29
[2017-04-24] MEDS ORDERED: LORazepam 2 MG/ML VIAL IV PUSH STA (09:48)
--- NOTE | 2017-04-24 09:48 | PD.PSY.CON ---
Provisional Diagnosis Admission Date Apr 19, 2017 at 12:40 [place]. Delirium due to multiple factors History of Present Illness Service Psychiatry Consult Requested By Hospitalist Reason for Consult Delirium Primary Care Physician Marzena Lozoya MD HPI The patient is a 61-year-old woman, domiciled with her granddaughter in [place], single, retired, without any previous psychiatric history, no previous psychiatric hospitalizations, no previous suicide attempts , medical history of history of end-stage renal disease who undergoes dialysis, hypertension, hyperlipidemia, who presented to the hospital at the request of the dialysis center because of complaining of multiple painful sites. Patient appears to have some confusion and slowed responses upon questioning. She is unable to give much information. Information was taken from patient, medical records, nursing staff, ER physician. When asked why she is here she is stammering with her speech, states that she was having pain in which she points to her abdomen. However medical records indicate that the ER doctor elicited that she had neck pain that would go into her head and down toward her chest. Records indicated that she went for dialysis today and apparently she was complaining of chest discomfort and sent here for evaluation. Workup in emergency department found the patient have abnormal findings supportive of end- stage renal disease requiring dialysis today. Patient had mildly elevated lactic acid level in which no infectious source can be identified at this time. Equivocal troponin elevation. However most impressive is her blood pressure which appears to be significantly elevated with hypertensive emergency complicated with confusion, headache, chest discomfort. Patient was admitted to ICU for further treatment and management Full workup of delirium has been done: CT of head did not indicate any acute abnormality, Neuro checks, TSH, B12, folate wnl, RPR is nonreactive, Status post LP - CSF cultures no growth to date, CSF lab work otherwise is pending, Head MRI showing no acute abnormalities noted explained her fluctuating mental status, only notes Mild nonspecific white matter signal change. Consulted to psychiatry to help with delirium management and to rule out catatonia. Chart reviewed, case discussed with Cedrick, Nurse in charge, who reports that the patient has been episodically agitated, disorganized, and having visual hallucinations. On psychiatric evaluation the patient is alert, but basically selectively mute, reticent, with marked poverty of speech, blocking thought, psychomotor retardation, no able to answer any of my questions. However at times he was able to answer some of the questions with a pronounced delay. Collateral information from her son. Buffy Frey Jr, , was obtained. He says that until a couple of days ago his mother was at baseline, which is a very active woman, chronically sick, but able to take care of her granddaughter, and herself, able to drive in the [place], take care of personal hygiene and finances, and no memory problems. He confirms that the patient doesn't have any previous psychiatric history. He doesn't believe that the patient ever used drugs or alcohol. Review of Systems Constitutional: DENIES: Diaphoretic episodes, Fatigue, Fever, Weight gain, Weight loss, Chills, Dizziness, Change in appetite, Night Sweats Endocrine: DENIES: Abnorml menstrual pattern, Heat/cold intolerance, Polydipsia , Polyuria, Polyphagia Eyes: DENIES: Blurred vision, Diplopia, Eye inflammation, Eye pain, Vision loss , Photosensitivity, Double Vision Ears, nose, mouth, throat: DENIES: Tinnitus, Hearing loss, Vertigo, Nasal discharge, Oral lesions, Throat pain, Hoarseness, Ear Pain, Running Nose, Epistaxis, Sinus Pain, Toothache, Odynophagia Respiratory: DENIES: Apneas, Cough, Snoring, Wheezing, Hemoptysis, Sputum production, Shortness of breath Cardiovascular: DENIES: Chest pain, Palpitations, Syncope, Dyspnea on Exertion , PND, Lower Extremity Edema, Orthopnea, Claudication Gastrointestinal: DENIES: Abdominal pain, Black stools, Bloody stools, Constipation, Diarrhea, Nausea, Vomiting, Difficulty Swallowing, Anorexia Genitourinary: DENIES: Abnormal vaginal bleeding, Dysmenorrhea, Dyspareunia, Sexual dysfunction, Urinary frequency, Urinary incontinence, Urgency, Hematuria , Dysuria, Nocturia, Vaginal discharge Musculoskeletal: DENIES: Joint pain, Muscle aches, Stiffness, Joint Swelling, Back pain, Neck pain Integumentary: DENIES: Abnormal pigmentation, Pruritus, Rash, Nail changes, Breast masses, Breast skin changes, Nipple discharge Hematologic/lymphatic: DENIES: Bruising, Lymphadenopathy Immunologic/allergic: DENIES: Eczema, Urticaria Neurologic: DENIES: Abnormal gait, Headache, Localized weakness, Paresthesias, Seizures, Speech Problems, Tremor, Poor Balance Psychiatric: COMPLAINS OF: Confusion, DENIES: Anxiety, Mood changes, Depression , Hallucinations, Agitation, Suicidal Ideation, Homicidal Ideation, Delusions Past Family Social History Coded Allergies: azithromycin (Verified Allergy, Severe, 04/19/17) vancomycin (Verified Allergy, Severe, PT VERIFIED RASH WITH VANCOMYCIN., 04/19/17) Reported Medications Hydroxyzine HCl (Hydroxyzine HCl) 25 Mg Tab, 25 MG PO TID Y for ALLERGIES, TAB 0 Refills 08/05/16 Warfarin (Warfarin) 7.5 Mg Tab, 7.5 MG PO DAILY for Blood Clot Prevention, #30 TAB 0 Refills 08/05/16 Metoprolol Succinate ER 24 HR (Metoprolol Succinate ER 24 HR) 50 Mg Tab, 50 MG PO DAILY, #30 TAB 0 Refills 08/05/16 Insulin Glargine Inj (Lantus Inj) 1,000 Unit/10 Ml Vial, 16 UNITS SQ HS for Blood Sugar Management, VIAL 0 Refills 08/05/16 Current Medications Medications (Trade) Dose Ordered Sig/[place] Route Start Time Stop Time Status Last Admin Sodium Chloride 1,000 ml @ 0 mls/hr Q0M PRN OTHER 04/19/17 12:50 (Heparin Inj) 8,000 units UNSCH PRN IV FLUSH 04/19/17 13:00 Sodium Chloride 1,000 ml @ 200 mls/hr Q5H PRN IV 04/19/17 12:50 Sodium Chloride 1,000 ml @ 0 mls/hr Q0M PRN OTHER 04/19/17 12:50 (Mannitol Inj) 12.5 gm UNSCH PRN IV 04/19/17 13:00 Albumin Human 100 ml @ 60 mls/hr UNSCH PRN IV 04/19/17 13:00 04/21/17 15:48 (NS Flush) 5 ml UNSCH PRN IV FLUSH 04/19/17 13:00 (Heparin Inj) UNSCH PRN .XX 04/19/17 13:00 (Gentamicin (Dialysis) Inj) 20 mg UNSCH PRN OTHER 04/19/17 13:00 (Zofran Inj) 4 mg UNSCH PRN IV PUSH 04/19/17 13:00 04/19/17 14:11 (Tylenol) 650 mg UNSCH PRN PO 04/19/17 13:00 04/20/17 22:19 (Benadryl) 25 mg UNSCH PRN PO 04/19/17 13:00 (Nitrostat Sl) 0.4 mg UNSCH PRN SL 04/19/17 13:00 (Catapres) 0.1 mg UNSCH PRN PO 04/19/17 13:00 04/21/17 05:07 (Gelfoam 12 Mm/7 Mm Top) 1 foam UNSCH PRN TOP 04/19/17 13:00 04/21/17 15:48 (D50w (Vial) Inj) 50 ml UNSCH PRN IV PUSH 04/19/17 16:30 (Glucagon Inj) 1 mg UNSCH PRN OTHER 04/19/17 16:30 (NovoLOG SUPPLEMENTAL SCALE) 1 ACHS SLIDING SCALE SQ 04/19/17 17:00 04/23/17 17:00 Daptomycin 384.5 mg/Sodium Chloride 100 ml @ 200 mls/hr Q48H IV 04/19/17 21:00 04/23/17 19:55 Miscellaneous Information Patient in critical care unit? Ass... Q361D .XX 04/19/17 22:45 04/19/17 22:45 (Chlorhexidine 2% Cloth) 3 pack UNSCH PRN TOPICAL 04/19/17 22:45 04/24/17 22:43 (Morphine Inj) 2 mg Q3H PRN IV PUSH 04/19/17 23:00 04/21/17 20:12 (Lovenox Inj) 30 mg EVERY OTHER DAY SQ 04/23/17 09:00 04/23/17 08:10 (Coumadin) 7.5 mg DAILY@1600 PO 04/22/17 16:00 04/23/17 17:16 Pharmacy Profile Note ml @ 0 mls/hr UNSCH OTHER 04/21/17 12:45 Cefazolin Sodium 500 mg/Sodium Chloride 50 ml @ 100 mls/hr Q12H IV 04/23/17 21:00 04/23/17 19:55 (ZyPREXA INJ) 5 mg Q12HR PRN IM 04/23/17 21:00 04/24/17 09:12 Family Psych History No family psychiatric history Social History They she was born and raised in [facility], she is single, domiciled in [place] with her granddaughter, has 2 kids, supported by [employer] benefits Patient's Strengths (min. 2) Family support, no previous psychiatric history Physical Exam Patient is hypoactive, confused, stiff Vital Signs Vital Signs Date Time Temp Pulse Resp B/P (MAP) Pulse Ox O2 Delivery O2 Flow Rate FiO2 04/24/17 06:00 76 04/24/17 04:00 98.7 31 135/63 (87) 100 04/23/17 20:50 Nasal Cannula 2.00 04/22/17 20:47 21 I/O 04/24/17 04/24/17 04/25/17 08:00 16:00 00:00 Output Total 0 ml Balance 0 ml Lab Results Test 04/24/17 04:10 Prothrombin Time 15.2 SEC Prothromb Time International Ratio 1.4 RATIO Blood Urea Nitrogen 106 MG/DL Creatinine 11.00 MG/DL Random Glucose 168 MG/DL Total Protein 7.4 GM/DL Albumin 2.6 GM/DL Calcium Level 7.9 MG/DL Alkaline Phosphatase 151 U/L Aspartate Amino Transf (AST/SGOT) 41 U/L Alanine Aminotransferase (ALT/SGPT) 8 U/L Total Bilirubin 0.7 MG/DL Sodium Level 134 MEQ/L Potassium Level 4.2 MEQ/L Chloride Level 94 MEQ/L Carbon Dioxide Level 21.2 MEQ/L Anion Gap 19 MEQ/L Estimat Glomerular Filtration Rate 4 ML/MIN Date/Time Source Procedure Growth Status 04/22/17 09:00 Blood Peripheral Aerobic Blood Culture - Preliminary Gram Positive Cocci Resulted 04/22/17 09:00 Anaerobic Blood Culture - Preliminary Gram Positive Cocci Resulted 04/21/17 09:31 Cerebral Spinal Fluid Lumbar Puncture Fungal Smear - Final NO FUNGAL ELEMENTS SEEN. Resulted 04/21/17 09:31 Cerebral Spinal Fluid Lumbar Puncture Fungal Culture Pending Resulted 04/20/17 09:00 Nasal Aspirate Influenza Types A,B Antigen (SANTOSH) - Final NEGATIVE FOR FLU A AND B ANTIGEN.... Complete Mental Status Examination Appearance: Appropriate Consciousness: Obtunded Orientation: Person Motor Activity: Abnormal gait Speech: Slow, Incoherent Language: Adequate Fund of Knowledge: Inadequate Attention and Concentration: Inadequate Memory: Impaired Mood: Oppositional Affect: Flat Thought Process & Associations: Loose associations Thought Content: Thought blocking Hallucination Type: None Delusion Type: None Suicidal Ideation: No Suicidal Plan: No Suicidal Intention: No Homicidal Ideation: No Homicidal Plan: No Homicidal Intention: No Insight: Fair Judgment: Impulsive Assessment & Plan Problem List: (1) Delirium due to another medical condition ICD Codes: F05 - Delirium due to known physiological condition Assessment & Plan: Patient shows symptoms suggestive of delirium, new onset disorganized behavior, agitation, aggressiveness, visual hallucinations, most probably related with underlying multiple medical conditions. Patient benefits of standing low dose of antipsychotics. Since QTC 502, I suggest Abilify 2.5 mg twice a day. Can continue olanzapine 5 mg IM every 8 hours when necessary increased agitation and aggressiveness. WIll Repeat EKG Patient also shows marked psychomotor retardation, speech latency, blocking thought, oppositional behavior some stiffness in my suggest catatonia the could be related with the delirium and underlying medical conditions. We'll do a Ativan challenge, 2 mg IV and would monitor closely if patient improved his symptoms. If the patient improves, my recommendation would be 1 mg of Ativan every 4 hours until complete resolution of catatonic symptoms. Consul appreciated. We'll follow-up Assessment & Plan Estimated LOS: Aaron Monterroso MD Apr 24, 2017 09:48
[2017-04-24] MEDS: ARIPiprazole 2 MG TAB PO SCH ×2 (10:00→20:58)
[2017-04-24 10:07] LABS: CSF CRYPTOCOCCUS AG CONF ND (NOT DETECTD)
--- NOTE | 2017-04-24 11:30 | HHI.NPPN ---
Subjective Renal Failure: Chronic, End Stage Renal Disease Interval History apparently was combative earlier. Given 2 mg of Ativan IV, now she is sleeping, unresponsive. To have dialysis today. Review of Systems Musculoskeletal MS Remarks neck pain Neuro Neuro: Headache Objective Data Data Vital Signs Date Time Temp Pulse Resp B/P (MAP) Pulse Ox O2 Delivery O2 Flow Rate FiO2 04/24/17 10:19 100 Nasal Cannula 2.00 04/24/17 10:00 72 04/24/17 08:00 68 47 138/61 (86) 92 04/24/17 08:00 76 04/24/17 07:00 Nasal Cannula 2.00 04/24/17 06:00 76 04/24/17 04:00 76 04/24/17 04:00 98.7 76 31 135/63 (87) 100 04/24/17 02:00 74 04/24/17 00:00 74 04/24/17 00:00 99.1 74 37 138/63 (88) 100 04/23/17 22:00 74 04/23/17 20:50 99 Nasal Cannula 2.00 04/23/17 20:00 74 04/23/17 20:00 74 28 157/80 (105) 98 04/23/17 19:00 Nasal Cannula 2.00 04/23/17 17:38 97.8 34 04/23/17 12:00 68 47 138/61 (86) 92 -: 04/20/17 0422 04/24/17 0410 Physical Exam General Appearance: Well Developed, No Acute Distress, Malnourished Eyes Eye Exam: Pupils Equal Throat Throat Exam: Oral Mucosa [place] & Moist Neck Neck Exam: Nuchal Rigidity Pulmonary Resp Exam: Clear Bilaterally, Breath Sounds Equal, No Distress Cardiology CV Exam: Regular, Normal Sinus Rhythm, Good Perfusion Gastrointestinal/Abdomen GI Exam: Soft, Non-Tender, Bowel Sounds Present Musculoskeletal MS Exam: Joints Intact Integumentary Skin Exam: Clear, Warm, Dry, Intact Extremeties Extremities Exam: No Edema, Pedal Pulses Palpable Neurologic Neuro Exam: Obtunded, Unresponsive, Sedated Psychiatric Psych Exam: Appropriate Responses Assessment/Plan Discussed Condition With: Patient Assessment Summary: Anemia of CKD, Hypertension, Diabetes Mellitus, End Stage Renal Disease Problem List: (1) ESRD (end stage renal disease) ICD Codes: N18.6 - End-stage renal disease Status: Chronic Plan: HD today. Monitor fluid and electrolytes. (2) Hyperkalemia ICD Codes: E87.5 - Hyperkalemia Status: Acute Plan: Due to renal failure corrected, monitor for recurrence (3) Hypertensive urgency, malignant ICD Codes: I16.0 - Hypertensive urgency Status: Acute Plan: BP improved, off nicardipine On oral medications (4) Anemia ICD Codes: D64.9 - Anemia Status: Acute Plan: Epogen not required (5) Metabolic bone disease ICD Codes: E88.9 - Metabolic bone disease; M90.80 - Osteopathy in diseases classified elsewhere, unspecified site Status: Acute Plan: Continue Renvela, intermittently monitor phosphorus level (6) Diabetes mellitus type 2 with complications ICD Codes: E11.8 - Type 2 diabetes mellitus with manifestations Status: Chronic Plan: Insulin as needed, goal 140-180 mg/dL. (7) Septicemia due to Staphylococcus aureus ICD Codes: A41.01 - Sepsis due to Methicillin susceptible Staphylococcus aureus Status: Acute Plan: ID following. Repeat blood culture is positive as well. On Cefazolin and Daptomycin. DANN will be required. (8) Encephalopathy acute ICD Codes: G93.40 - Encephalopathy, unspecified Plan: workup is in progress. Could be from sepsis. Evaluated by psychiatry as well. No improvement. s/p LP. Louis Fagan MD Apr 24, 2017 11:30
[2017-04-24] MEDS ORDERED: FLUMAZENIL 0.5 MG/5 ML VIAL IV ONE (12:00)
[2017-04-24] MEDS ORDERED: FLUMAZENIL 0.5 MG/5 ML VIAL IV PRN (12:00)
--- NOTE | 2017-04-24 13:48 | HHI.PR ---
Subjective Remarks Nursing reports that the patient underwent the Ativan challenge per psychiatry, and patient became very drowsy and essentially is just sleeping now. Is very hard to arouse but is in no acute distress with stable vital signs. Patient still not taking her medications by mouth the way she should be. Objective Vital Signs Date Time Temp Pulse Resp B/P (MAP) Pulse Ox O2 Delivery O2 Flow Rate FiO2 04/24/17 12:00 86 14 145/54 (84) 92 04/24/17 12:00 86 04/24/17 10:19 100 Nasal Cannula 2.00 04/24/17 10:00 72 04/24/17 08:00 68 47 138/61 (86) 92 04/24/17 08:00 76 04/24/17 07:00 Nasal Cannula 2.00 04/24/17 06:00 76 04/24/17 04:00 76 04/24/17 04:00 98.7 76 31 135/63 (87) 100 04/24/17 02:00 74 04/24/17 00:00 74 04/24/17 00:00 99.1 74 37 138/63 (88) 100 04/23/17 22:00 74 04/23/17 20:50 99 Nasal Cannula 2.00 04/23/17 20:00 74 04/23/17 20:00 74 28 157/80 (105) 98 04/23/17 19:00 Nasal Cannula 2.00 04/23/17 17:38 97.8 34 I/O 04/23/17 04/23/17 04/23/17 04/24/17 04/24/17 04/24/17 07:00 15:00 23:00 07:00 15:00 23:00 Intake Total 1080 ml 100 ml 150 ml Output Total 0 ml Balance 1080 ml 100 ml 150 ml 0 ml Intake Oral 480 ml IV Total 600 ml 100 ml 150 ml Output Urine Total 0 ml # Voids 0 # Bowel Movements 1 1 1 0 Result Diagram: 04/20/1742104/24/17409 Objective Remarks Lying in bed, asleep Does not awake when speaking to her, is snoring Unlabored breathing, lungs are clear bilaterally Does not wince or flinch to painful stimuli or sternal rub A/P Assessment and Plan Encephalopathy - uremia w/ possible superimposed hospital induced delirium, CT of head did not indicate any acute abnormality, TSH, B12, folate wnl, RPR is nonreactive, CT head and MRI unremarkable for any explainable cause, LP workup neg for any positive cultures - EEG read pending - fall precautions Possible catatonic behavior given that organic workup has been unremarkable, consulting psychiatry, speech therapy definitively confirms cognition impairment at this time. Case discussed with psychiatry, appreciate consultation, concluded that this is more likely a overall delirium based picture as opposed to a true psychiatric primary base disorder. Given that the patient is very hard to arouse after receiving her 2 mg of Ativan with her GCS depressing to less than 8, gave a trial of flumazenil, sitting reports that the patient does wake up, we'll continue flumazenil as needed for severe drowsiness. To honor psychiatrist's recs, will maintain at least 1 mg of ativan, starting abilify - ID following, on cefazolin and daptomycin Uremia w/ End-stage renal disease on hemodialysis - s/p dialysis, nephrology following Diabetes - Accu-Cheks with sliding scale insulin Neck pain on presentation - CT scan shows that there is [id number] degenerative disc disease with possible canal stenosis at C3 to C4, C5 to C6, and C6 to C7. - Patient can continue with outpatient MRI and follow-up with primary medical doctor Hypertension, hyperlipidemia, - Continue home medications paroxysmal atrial fibrillation - Warfarin consult - on lovenox while inpt DVT prevention - lovenox while inpt - warfarin consult for her A. fib given she is on antibiotics now Case discussed with infectious disease, patient will need transesophageal echocardiogram given that her repeat blood cultures are still positive. Transferring patient to [facility] and consulting cardiology for procedure. Jeff Garcia MD Apr 24, 2017 13:48
[2017-04-24] MEDS: FLUMAZENIL 0.5 MG/5 ML VIAL IV PRN ×4 (14:13→17:50)
[2017-04-24] MEDS ORDERED: WARFARIN SOD 10 MG TAB PO ONE (16:00)
--- NOTE | 2017-04-24 18:03 | MG ---
cc: GABBY FINCH M.D. Lab No: Date: 04/23/2017 Age: Sex: F Race: TEST NUMBER [id number] TECHNIQUE 17 channel EEG. DESCRIPTION The background rhythm reveals an alpha rhythm frequency 8-10 Hz. There is quite a bit of muscle artifact superimposed on the tracing. There are no epileptiform features but it is difficult to fully interpret this due to significant muscle artifact. Photic results in a modest driving response. INTERPRETATION Limited study on the basis of severe muscle artifact which makes interpretation difficult. However when I can see reveals a normal alpha rhythm. MD NEGRITO Zheng/STEPH /5:01 PM /5:59 PM
[2017-04-24] MEDS: ceFAZolin 1,000 MG/NS 100 ML IV SCH ×2 (20:48)
[2017-04-24] MEDS: DILTIAZEM INJ 125 MG in SODIUM CHLORIDE 0.9% INJ 100 ML IV PRN (23:46)
[2017-04-25] VITALS (13 sets, daily range): BP systolic 100–130; BP diastolic 56–76; PULSE 59–139; RESP 16–21; TEMP 97.3–98.6; O2SAT 93–100
[2017-04-25 07:09] LABS: INTERNATIONAL NORMALIZED RATIO 1.4 RATIO; PROTHROMBIN TIME - PATIENT 15.5 SEC (9.8-11.6)
[2017-04-25] MEDS: INSULIN ASPART SUPPLEMENTAL SCALE SQ SCH ×4 (08:00→21:00)
--- NOTE | 2017-04-25 08:29 | MB ---
cc: CUATE BAGLEY M.D. DATE OF CONSULTATION: 04/25/2017 REASON FOR CONSULTATION Transesophageal echocardiography. HISTORY OF PRESENT ILLNESS The history is somewhat difficult to elicit from the patient. She is often very slow to respond. The patient is a 61-year-old -[place] female with a history of end-stage renal disease, leiomyosarcoma, hypertension, diabetes, hyperlipidemia, paroxysmal atrial fibrillation, who was brought to the hospital apparently with complaints of abdominal, neck, chest pains. Further work-up has revealed evidence for Staphylococcus aureus bacteremia. The patient states she has had no further chest pains. She also denies dizziness, syncope, near-syncope, palpitations, pedal edema. She notes mild dyspnea as her "throat is dry." The patient cannot recall any recent fevers. She denies any recent surgery or dental work. PAST MEDICAL HISTORY 1. End-stage renal disease, chronically on dialysis. 2. 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 3. Hypertension. 4. Diabetes. 5. Hyperlipidemia. 6. Hemorrhagic left renal mass status post coil embolization and subsequent left radical nephrectomy 2010. 7. Paroxysmal atrial fibrillation diagnosed 2011. PAST SURGICAL HISTORY 1. Total abdominal hysterectomy. 2. Sarcoma resection. 3. Left radical nephrectomy 08/29/2010. 4. Laparoscopic cholecystectomy 03/22/2014. MEDICATIONS Her current cardiac medications: 1. Warfarin 7.5 mg q. day. 2. Cardizem drip. 3. Lovenox 30 mg subcutaneously q.o.d. ALLERGIES 1. AZITHROMYCIN. 2. VANCOMYCIN. FAMILY HISTORY Noncontributory. SOCIAL HISTORY The patient denies any history of alcohol or tobacco abuse. REVIEW OF SYSTEMS As in the history of present illness, otherwise negative or noncontributory. She also denies headache, visual changes, dyspepsia, melena, bright red blood per rectum. PHYSICAL EXAMINATION VITAL SIGNS: On physical examination her blood pressure is 100/56 with a pulse of 95, respirations 17. GENERAL: In general she is a well-developed, well-nourished -[place] female in no acute distress. HEENT/NECK: Jugular venous pressure is normal. Carotid pulses are 2+ bilaterally and without bruits. CHEST: Examination of the chest reveals unlabored respiratory effort with clear lung quijano anteriorly. CARDIAC: On cardiac examination she has an irregularly irregular rhythm with a grade 1-2/6 diffuse systolic murmur. The S2 heart sound is normal. No gallop is audible. ABDOMEN: On abdominal examination she has a soft, nontender abdomen. Bowel sounds are present. There is no definite hepatosplenomegaly. EXTREMITIES: Examination of extremities reveals no clubbing, cyanosis or edema. No definite peripheral stigmata of endocarditis. LABORATORY Laboratory data includes WBC 8.6, hemoglobin 12.8, platelets 132, potassium 4.2, BUN 106, creatinine 11.00, AST 41, ALT 8, troponin 0.10, CK 390, INR 1.4. EKG EKG shows sinus rhythm with first-degree AV block, left axis deviation. IMAGING Chest x-ray shows increased interstitial markings. IMPRESSION Recurrent paroxysmal atrial fibrillation, possible congestive heart failure, Staphylococcus aureus bacteremia in this 61-year-old -[place] female with a history of end-stage renal disease, hypertension, diabetes, hyperlipidemia, paroxysmal atrial fibrillation, history of resection of a leiomyosarcoma from the retroperitoneal region. I have been asked to see the patient for transesophageal echocardiography. Her transthoracic echo has been reviewed. The imaging is quite good. I do not see any definitive evidence for vegetation. Nonetheless I would agree with the need for transesophageal echocardiography given her bacteremia. At this time she remains in atrial fibrillation with fluctuating heart rates, occasionally elevated. Overall there is no definite evidence for acute coronary syndrome. Her thromboembolic risk is moderately elevated with her history of hypertension and diabetes. The precipitating factor for the congestive heart failure is unclear. Echo is pending. RECOMMENDATIONS 1. Would continue to adjust her warfarin dosing to achieve a therapeutic INR. 2. Continue intravenous Cardizem for now; if her blood pressures will allow would recommend resuming her usual metoprolol as taken at home. 3. Transesophageal echocardiography hopefully tomorrow if it can be placed on the schedule. Will be able to assess her left ventricular/valvular function then. MD KAYLA Wright/SUJATA /8:06 AM /8:22 AM SON
[2017-04-25] MEDS: ENOXAPARIN SODIUM 30 MG/0.3 ML SYRINGE SQ SCH (08:33)
[2017-04-25] MEDS: ceFAZolin 1,000 MG/NS 100 ML IV SCH ×4 (08:34→22:20)
[2017-04-25] MEDS: ARIPiprazole 2 MG TAB PO SCH ×2 (08:37→21:00)
[2017-04-25] MEDS: DILTIAZEM INJ 125 MG in SODIUM CHLORIDE 0.9% INJ 100 ML IV PRN ×2 (10:18→22:19)
--- NOTE | 2017-04-25 12:27 | HHI.NPPN ---
Subjective Renal Failure: Chronic, End Stage Renal Disease Interval History She is very confused, paranoid. Restrained. In A fib RVR on cardizem gtt. (Petrona Sexton) Review of Systems Musculoskeletal MS Remarks neck pain (Petrona Sexton) Neuro Neuro: Headache (Petrona Sexton) Objective Data Data Vital Signs Date Time Temp Pulse Resp B/P (MAP) Pulse Ox O2 Delivery O2 Flow Rate FiO2 04/25/17 10:18 80 124/58 04/25/17 08:00 98.6 77 19 106/59 (75) 98 04/25/17 07:00 99 Nasal Cannula 2.00 04/25/17 06:00 118 04/25/17 04:00 121 04/25/17 04:00 97.3 121 17 100/56 (71) 99 04/25/17 02:00 74 04/25/17 00:23 137 109/56 04/25/17 00:15 136 21 109/56 (73) 100 04/25/17 00:00 139 04/25/17 00:00 97.9 139 20 101/58 (72) 100 04/25/17 00:00 97.9 139 20 101/58 (72) 100 04/24/17 23:46 134 97/53 04/24/17 22:15 134 04/24/17 22:15 97.6 142 24 132/60 (84) 04/24/17 21:01 122 22 86/64 (71) 100 04/24/17 20:55 100 Nasal Cannula 2.00 04/24/17 20:16 60 13 137/76 (96) 100 04/24/17 20:01 98.6 54 15 145/58 (87) 100 04/24/17 20:00 100 Nasal Cannula 2.00 04/24/17 20:00 58 04/24/17 19:46 54 15 133/65 (87) 100 04/24/17 19:31 56 16 128/49 (75) 100 04/24/17 19:16 54 14 118/47 (70) 100 04/24/17 19:01 52 14 124/47 (72) 100 04/24/17 18:00 48 04/24/17 17:44 48 04/24/17 16:00 98.5 04/24/17 16:00 72 04/24/17 14:00 74 (Petrona Sexton) -: 04/24/17 0410 Drip Comment socorrozem (Petrona Sexton) Physical Exam General Appearance: Well Developed, No Acute Distress, Malnourished Appearance Remarks agitated (Petrona Sexton) Eyes Eye Exam: Pupils Equal (Petrona Sexton) Throat Throat Exam: Oral Mucosa [place] & Moist (Petrona Sexton) Neck Neck Exam: Nuchal Rigidity (Petrona Sexton) Pulmonary Resp Exam: Clear Bilaterally, Breath Sounds Equal, No Distress (Petrona Sexton) Cardiology CV Exam: Regular, Normal Sinus Rhythm, Good Perfusion (Petrona Sexton) Gastrointestinal/Abdomen GI Exam: Soft, Non-Tender, Bowel Sounds Present (Petrona Sexton) Musculoskeletal MS Exam: Joints Intact (Petrona Sexton) Integumentary Skin Exam: Clear, Warm, Dry, Intact (Petrona Sexton) Extremeties Extremities Exam: No Edema, Pedal Pulses Palpable Extremeties Remarks right arm AVF, + thrill, bruit; aneurism is present (Petrona Sexton) Neurologic Neuro Exam: Awake (Petrona Sexton) Psychiatric Psych Remarks awake, confused, very paranoid (Petrona Sexton) Assessment/Plan Discussed Condition With: Patient Assessment Summary: Anemia of CKD, Hypertension, Diabetes Mellitus, End Stage Renal Disease Problem List: (1) ESRD (end stage renal disease) ICD Codes: N18.6 - End-stage renal disease Status: Chronic Plan: She was dialyzed in full yesterday Obtain intermittent metabolic profile Start D10 while NPO. (2) Hyperkalemia ICD Codes: E87.5 - Hyperkalemia Status: Acute Plan: Due to renal failure corrected, monitor for recurrence (3) Hypertensive urgency, malignant ICD Codes: I16.0 - Hypertensive urgency Status: Acute Plan: BP improved, off nicardipine On oral medications (4) Anemia ICD Codes: D64.9 - Anemia Status: Acute Plan: Epogen not required (5) Metabolic bone disease ICD Codes: E88.9 - Metabolic bone disease; M90.80 - Osteopathy in diseases classified elsewhere, unspecified site Status: Acute Plan: Continue Renvela, intermittently monitor phosphorus level (6) Diabetes mellitus type 2 with complications ICD Codes: E11.8 - Type 2 diabetes mellitus with manifestations Status: Chronic Plan: Insulin as needed, goal 140-180 mg/dL. On D10 while she is restrained and refusing swallow evaluation (7) Septicemia due to Staphylococcus aureus ICD Codes: A41.01 - Sepsis due to Methicillin susceptible Staphylococcus aureus Status: Acute Plan: ID following. Repeat blood culture is positive as well. On Cefazolin and Daptomycin. DANN will be required. Consent needs to be obtained (8) Encephalopathy acute ICD Codes: G93.40 - Encephalopathy, unspecified Plan: workup is in progress. Could be from sepsis. Evaluated by psychiatry as well. No improvement. s/p LP. She is now restrained, on abilify and zyprexa with ativan PRN. (Petrona Sexton) Plan patient was seen and examined. She is confused, delirious, combative. Unclear etiology of altered mental status. Patient is not currently cooperative. On Cefazolin. (Louis Fagan MD) Petrona Sexton Apr 25, 2017 12:27 Louis Fagan MD Apr 26, 2017 10:35
--- NOTE | 2017-04-25 13:31 | HHI.PR ---
Subjective Remarks patient seen in follow up for delirium and Staph bacteremia Discussed with patient regarding medical care; patient able to say she has a "viral" infection in her blood which may be life threatening, yet refusing medications and examinations She requests paper "because i need to write" and requests to see the business office to "review her contracts" Discussed with [employer] and, Case management and ID team Objective Vitals Vital Signs Date Time Temp Pulse Resp B/P (MAP) Pulse Ox O2 Delivery O2 Flow Rate FiO2 04/25/17 10:18 80 124/58 04/25/17 08:00 98.6 77 19 106/59 (75) 98 04/25/17 07:00 99 Nasal Cannula 2.00 04/25/17 06:00 118 04/25/17 04:00 121 04/25/17 04:00 97.3 121 17 100/56 (71) 99 04/25/17 02:00 74 04/25/17 00:23 137 109/56 04/25/17 00:15 136 21 109/56 (73) 100 04/25/17 00:00 139 04/25/17 00:00 97.9 139 20 101/58 (72) 100 04/25/17 00:00 97.9 139 20 101/58 (72) 100 04/24/17 23:46 134 97/53 04/24/17 22:15 134 04/24/17 22:15 97.6 142 24 132/60 (84) 04/24/17 21:01 122 22 86/64 (71) 100 04/24/17 20:55 100 Nasal Cannula 2.00 04/24/17 20:16 60 13 137/76 (96) 100 04/24/17 20:01 98.6 54 15 145/58 (87) 100 04/24/17 20:00 100 Nasal Cannula 2.00 04/24/17 20:00 58 04/24/17 19:46 54 15 133/65 (87) 100 04/24/17 19:31 56 16 128/49 (75) 100 04/24/17 19:16 54 14 118/47 (70) 100 04/24/17 19:01 52 14 124/47 (72) 100 04/24/17 18:00 48 04/24/17 17:44 48 04/24/17 16:00 98.5 04/24/17 16:00 72 04/24/17 14:00 74 I/O 04/24/17 04/24/17 04/24/17 04/25/17 04/25/17 04/25/17 07:00 15:00 23:00 07:00 15:00 23:00 Intake Total 50 ml 100 ml 59 ml Output Total 0 ml 2000 ml 0 ml Balance 0 ml 50 ml -1900 ml 59 ml Intake Oral 0 ml IV Total 50 ml 100 ml 59 ml Output Urine Total 0 ml 0 ml Hemodialysis 2000 ml # Voids 0 # Bowel Movements 0 0 Result Diagram: 04/24/17 0410 Imaging Last Impressions Lumbar Puncture Fluoroscopy 04/20/17 0000 Signed Impressions: Service Date/Time: Friday, April 21, 2017 08:41 - CONCLUSION: Uncomplicated fluoroscopically guided lumbar puncture with pressures as above. Cedrick Khan MD Brain MRI 04/20/17 0000 Signed Impressions: Service Date/Time: April 16:28 - CONCLUSION: Mild nonspecific white matter signal change. Anival Moore MD Head CT 04/19/1758 Signed Impressions: Service Date/Time: Wednesday, April 19, 2017 11:00 - CONCLUSION: Negative for acute process. There is no sinus disease. Clayton Romero MD FACR Cervical Spine CT 04/19/1758 Signed Impressions: Service Date/Time: Wednesday, April 19, 2017 11:00 - CONCLUSION: 1. There is moderate to severe multilevel degenerative disc disease with possible canal stenosis at C3-C4, C5-C6, and C6-C7, as above. There are additional areas of mild neural foraminal narrowing. These findings could be better delineated with MRI, if needed. 2. No acute cervical spine abnormality is identified. Anival Anderson MD Chest X-Ray 04/19/17 0942 Signed Impressions: Service Date/Time: Wednesday, April 19, 2017 10:30 - CONCLUSION: Moderate congestive failure. Clayton Romero MD FACR Objective Remarks GENERAL: This is a well-nourished, well-developed patient, in no apparent distress. CARDIOVASCULAR: Regular rate and rhythm without murmurs, gallops, or rubs. RESPIRATORY: Clear to auscultation. Breath sounds equal bilaterally. No wheezes , rales, or rhonchi. GASTROINTESTINAL: Abdomen soft, non-tender, nondistended. Normal active bowel sounds MUSCULOSKELETAL: Extremities without clubbing, cyanosis, or edema. NEURO: She is very confused, paranoid yet alert & oriented x4 to person, place, time, situation. But poorly cooperative. Moves all ext x4 A/P Problem List: (1) Hypertensive urgency, malignant ICD Code: I16.0 - Hypertensive urgency Status: Acute Plan: hypotensive now HD per renal (2) ESRD (end stage renal disease) ICD Code: N18.6 - End-stage renal disease Status: Chronic Plan: HD per renal yesterday follow bmp Renvela, follow electrolytes (3) Metabolic encephalopathy ICD Code: G93.41 - Metabolic encephalopathy Plan: likely delirium multifactorial due to bacteremia, HTN urgency (usually very cooperative and independent with self care) eeg wnl, MRI brain wnl abilify rx per psychiatry but patient refuses restraints as needed (4) Septicemia due to Staphylococcus aureus ICD Code: A41.01 - Sepsis due to Methicillin susceptible Staphylococcus aureus Status: Acute Plan: cefazolin, daptomycin IV ID following but patient refusing exam will need DANN, consents will need to be obtained but patient not willing to consent at this time; i have discussed with her son Tk with the patients permission (5) Diabetes mellitus type 2 with complications ICD Code: E11.8 - Type 2 diabetes mellitus with manifestations Status: Chronic Plan: Cont accuchecks, D10 IV as patient refusing to eat (6) Afib ICD Code: I48.91 - Unspecified atrial fibrillation Plan: paroxysmal, cont cardizem, heparin/warfarin Assessment and Plan Son called Tk Baer at Number in Chart, says she had a growth on the kidney and when it was removed (renal mass 2010) there was a complication with her the ventilation. He will likely consent but will need to discuss with family. Katarzyna Lira MD Apr 25, 2017 13:31
--- NOTE | 2017-04-25 15:49 | HHI.IDPN ---
Note Infectious Disease Note ID coverage. Patient is very confused but she is communicating and refusing intervention. She does not want to answer my questions and is asking me who sent me to see her. No distress. Asking to sign off AMA. Afebrile. No Dyspnea. She did allow me to examine her and after examining her heart, lungs and abdomen she told me not to touch her. This was relayed to her attending Dr. Lira. Blood culture 04/22 has MSSA. Antibiotics IV Cefazolin Lines Peripheral Past Medical History ESRD Allergies: Coded Allergies: azithromycin (Verified Allergy, Severe, 04/19/17) vancomycin (Verified Allergy, Severe, PT VERIFIED RASH WITH VANCOMYCIN., 04/19/17) Objective Vital Signs Date Time Temp Pulse Resp B/P (MAP) Pulse Ox O2 Delivery O2 Flow Rate FiO2 04/25/17 10:18 80 124/58 04/25/17 08:00 98.6 77 19 106/59 (75) 98 04/25/17 07:00 99 Nasal Cannula 2.00 04/25/17 06:00 118 04/25/17 04:00 121 04/25/17 04:00 97.3 121 17 100/56 (71) 99 04/25/17 02:00 74 04/25/17 00:23 137 109/56 04/25/17 00:15 136 21 109/56 (73) 100 04/25/17 00:00 139 04/25/17 00:00 97.9 139 20 101/58 (72) 100 04/25/17 00:00 97.9 139 20 101/58 (72) 100 04/24/17 23:46 134 97/53 04/24/17 22:15 134 04/24/17 22:15 97.6 142 24 132/60 (84) 04/24/17 21:01 122 22 86/64 (71) 100 04/24/17 20:55 100 Nasal Cannula 2.00 04/24/17 20:16 60 13 137/76 (96) 100 04/24/17 20:01 98.6 54 15 145/58 (87) 100 04/24/17 20:00 100 Nasal Cannula 2.00 04/24/17 20:00 58 04/24/17 19:46 54 15 133/65 (87) 100 04/24/17 19:31 56 16 128/49 (75) 100 04/24/17 19:16 54 14 118/47 (70) 100 04/24/17 19:01 52 14 124/47 (72) 100 04/24/17 18:00 48 04/24/17 17:44 48 04/24/17 16:00 98.5 04/24/17 16:00 72 Laboratory Tests Test 04/24/17 22:15 04/25/17 06:12 Nasal Screen MRSA (PCR) MRSA NOT DETECTED Prothrombin Time 15.5 SEC Prothromb Time International Ratio 1.4 RATIO PHYSICAL EXAM: limited due to patient non cooperation. GENERAL: Patient is in no acute distress. HEENT: EOMI, No icterus. NECK: Supple. LUNGS: Clear breath sounds bilateral. CARDIAC: Regular rate and rhythm. No murmur. ABDOMEN: Soft, non tender. SKIN: No rash. NEURO. not fully assessed. PSYCH: confused. Diagnosis: Fever Septicemia due to Staphylococcus aureus ESRD (end stage renal disease) Recommend: Repeat blood cultures with dialysis tomorrow. Monitor DANN. Evaluation for endocarditis. Continue IV Cefazolin Stone Farmer MD Apr 25, 2017 15:49
[2017-04-25] MEDS: WARFARIN SOD 7.5 MG TAB PO SCH (16:00)
[2017-04-25] MEDS ORDERED: WARFARIN SOD 2.5 MG TAB PO ONE (16:00)
[2017-04-25] MEDS: DEXTROSE 10% INJ 1,000 ML IV SCH (16:14)
[2017-04-25] MEDS: HEPARIN SODIUM - SQ 10,000 UNITS/ML VIAL SQ SCH (22:20)
[2017-04-26] VITALS (13 sets, daily range): BP systolic 135–164; BP diastolic 65–104; PULSE 58–126; RESP 16–20; TEMP 98.4–98.5; O2SAT 94–99
[2017-04-26 07:12] LABS: INTERNATIONAL NORMALIZED RATIO 1.3 RATIO
--- NOTE | 2017-04-26 07:55 | PD.CARD.PN ---
Subjective Subjective Remarks Uncooperative. Denies dyspnea, pain. Objective Medications Item Value Date Time Warfarin Sodium 7.5 mg 04/25/17 1600 (Coumadin) DAILY@1600/PO Heparin Sodium 5,000 units 04/25/17 2100 (Porcine) Q12HR/SQ 04/25/17 2220 (Heparin Inj) Diltiazem HCl 125 125 ml @ 5 mls/hr 04/24/17 2330 mg/Sodium Chloride TITRATE PRN/IV 04/25/17 2219 Current Medications Medications (Trade) Dose Ordered Sig/[place] Route Start Time Stop Time Status Last Admin Sodium Chloride 1,000 ml @ 0 mls/hr Q0M PRN OTHER 04/19/17 12:50 (Heparin Inj) 8,000 units UNSCH PRN IV FLUSH 04/19/17 13:00 Sodium Chloride 1,000 ml @ 200 mls/hr Q5H PRN IV 04/19/17 12:50 Sodium Chloride 1,000 ml @ 0 mls/hr Q0M PRN OTHER 04/19/17 12:50 (Mannitol Inj) 12.5 gm UNSCH PRN IV 04/19/17 13:00 Albumin Human 100 ml @ 60 mls/hr UNSCH PRN IV 04/19/17 13:00 04/21/17 15:48 (NS Flush) 5 ml UNSCH PRN IV FLUSH 04/19/17 13:00 (Heparin Inj) UNSCH PRN .XX 04/19/17 13:00 (Gentamicin (Dialysis) Inj) 20 mg UNSCH PRN OTHER 04/19/17 13:00 (Zofran Inj) 4 mg UNSCH PRN IV PUSH 04/19/17 13:00 04/19/17 14:11 (Tylenol) 650 mg UNSCH PRN PO 04/19/17 13:00 04/20/17 22:19 (Benadryl) 25 mg UNSCH PRN PO 04/19/17 13:00 (Nitrostat Sl) 0.4 mg UNSCH PRN SL 04/19/17 13:00 (Catapres) 0.1 mg UNSCH PRN PO 04/19/17 13:00 04/21/17 05:07 (Gelfoam 12 Mm/7 Mm Top) 1 foam UNSCH PRN TOP 04/19/17 13:00 04/21/17 15:48 (D50w (Vial) Inj) 50 ml UNSCH PRN IV PUSH 04/19/17 16:30 (Glucagon Inj) 1 mg UNSCH PRN OTHER 04/19/17 16:30 (NovoLOG SUPPLEMENTAL SCALE) 1 ACHS SLIDING SCALE SQ 04/19/17 17:00 04/24/17 12:00 Miscellaneous Information Patient in critical care unit? Ass... Q361D .XX 04/19/17 22:45 04/19/17 22:45 (Morphine Inj) 2 mg Q3H PRN IV PUSH 04/19/17 23:00 04/21/17 20:12 Pharmacy Profile Note ml @ 0 mls/hr UNSCH OTHER 04/21/17 12:45 (ZyPREXA INJ) 5 mg Q12HR PRN IM 04/23/17 21:00 04/24/17 09:12 (Abilify) 2 mg BID PO 04/24/17 10:00 04/24/17 20:58 (Romazicon Inj) 0.2 mg UNSCH PRN IV 04/24/17 13:30 04/24/17 17:50 Cefazolin Sodium 1000 mg/Sodium Chloride 100 ml @ 200 mls/hr Q12H IV 04/24/17 21:00 04/25/17 22:20 (Coumadin) 7.5 mg DAILY@1600 PO 04/25/17 16:00 Diltiazem HCl 125 mg/Sodium Chloride 125 ml @ 5 mls/hr TITRATE PRN IV 04/24/17 23:30 04/25/17 22:19 Dextrose 1,000 ml @ 20 mls/hr Q24H IV 04/25/17 12:30 04/25/17 16:14 (Heparin Inj) 5,000 units Q12HR SQ 04/25/17 21:00 04/25/17 22:20 Vital Signs / I&O Vital Signs Date Time Temp Pulse Resp B/P (MAP) Pulse Ox O2 Delivery O2 Flow Rate FiO2 04/26/17 06:00 61 04/26/17 04:00 58 04/26/17 04:00 98.4 58 17 138/65 (89) 94 04/26/17 02:00 58 04/26/17 01:29 96 21 04/26/17 00:00 61 18 140/65 (90) 94 04/26/17 00:00 59 04/25/17 22:19 61 130/62 04/25/17 22:00 61 04/25/17 20:00 59 04/25/17 20:00 96 21 04/25/17 20:00 98.5 59 16 130/61 (84) 94 04/25/17 19:00 94 Room Air 04/25/17 18:00 63 04/25/17 16:00 62 20 127/60 (82) 93 04/25/17 16:00 62 04/25/17 14:00 64 04/25/17 12:00 67 04/25/17 12:00 98.3 67 18 115/76 (89) 95 04/25/17 10:18 80 124/58 04/25/17 10:00 76 04/25/17 08:00 77 04/25/17 08:00 98.6 77 19 106/59 (75) 98 I/O 04/25/17 04/25/17 04/25/17 04/26/17 04/26/17 04/26/17 07:00 15:00 23:00 07:00 15:00 23:00 Intake Total 59 ml 0 ml Output Total 0 ml 0 ml 0 ml Balance 59 ml 0 ml 0 ml Intake Oral 0 ml IV Total 59 ml Output Urine Total 0 ml 0 ml 0 ml # Bowel Movements 0 Physical Exam GENERAL: Well developed, well nourished. No acute distress. HEENT: Jugular venous pressure is normal. CHEST: Lungs clear to auscultation anteriorly. CARDIAC: Regular rate and rhythm without S3, S4, or murmur. ABDOMEN: Soft, nontender, no hepatosplenomegaly. Bowel sounds present. EXTREMITIES: No clubbing, cyanosis, or edema. Laboratory Laboratory Tests Test 04/26/17 04:54 Prothrombin Time 15.0 SEC Prothromb Time International Ratio 1.3 RATIO Assessment and Plan Problem List: (1) Septicemia due to Staphylococcus aureus ICD Codes: A41.01 - Sepsis due to Methicillin susceptible Staphylococcus aureus Status: Acute Plan: DANN scheduled for this morning but reportedly son will not give consent. Will cancel DANN for now. Please call if consent obtained. (2) Paroxysmal atrial fibrillation ICD Codes: I48.0 - Paroxysmal atrial fibrillation Status: Acute Plan: Back in NSR. Recommend oral Cardizem, add oral Amiodarone to help maintain NSR. Rec continue to adjust warfarin to achieve therapeutic INR. (3) Elevated troponin ICD Codes: R74.8 - Abnormal levels of other serum enzymes Status: Acute Plan: Minimally elevated troponin, doubt due to ACS. Suspect slight elevation due to atrial fib with RVR. (4) Hypertension ICD Codes: I10 - Essential (primary) hypertension Plan: Overall stable. Mostly normotensive. Code Status full code Discussed Condition With patient Problem Qualifiers (1) Hypertension: Qualified Codes: I10 - Essential (primary) hypertension Nickolas Hinojosa MD Apr 26, 2017 07:55
[2017-04-26] MEDS: INSULIN ASPART SUPPLEMENTAL SCALE SQ SCH ×4 (07:56→21:00)
[2017-04-26] MEDS: ceFAZolin 1,000 MG/NS 100 ML IV SCH ×4 (09:00→21:51)
[2017-04-26] MEDS: DILTIAZEM-CD 180 MG CAP ER PO SCH (09:00)
[2017-04-26] MEDS: AMIODARONE 200 MG TAB PO SCH (09:00)
[2017-04-26] MEDS: ARIPiprazole 2 MG TAB PO SCH ×2 (09:00→21:00)
[2017-04-26] MEDS: HEPARIN SODIUM - SQ 10,000 UNITS/ML VIAL SQ SCH ×2 (09:00→21:51)
--- NOTE | 2017-04-26 09:54 | HHI.NPPN ---
Subjective Renal Failure: Chronic, End Stage Renal Disease Interval History More agitated, combative, confused. Removing hospital gown. Son is at bedside. She has refused PO medications, lab draws, physical exam. (Petrona Sexton) Review of Systems Musculoskeletal MS Remarks neck pain (Petrona Sexton) Neuro Neuro: Headache (Petrona Sexton) Objective Data Data Vital Signs Date Time Temp Pulse Resp B/P (MAP) Pulse Ox O2 Delivery O2 Flow Rate FiO2 04/26/17 08:00 Room Air 04/26/17 06:00 61 04/26/17 04:00 58 04/26/17 04:00 98.4 58 17 138/65 (89) 94 04/26/17 02:00 58 04/26/17 01:29 96 21 04/26/17 00:00 61 18 140/65 (90) 94 04/26/17 00:00 59 04/25/17 22:19 61 130/62 04/25/17 22:00 61 04/25/17 20:00 59 04/25/17 20:00 96 21 04/25/17 20:00 98.5 59 16 130/61 (84) 94 04/25/17 19:00 94 Room Air 04/25/17 18:00 63 04/25/17 16:00 62 20 127/60 (82) 93 04/25/17 16:00 62 04/25/17 14:00 64 04/25/17 12:00 67 04/25/17 12:00 98.3 67 18 115/76 (89) 95 04/25/17 10:18 80 124/58 04/25/17 10:00 76 (Petrona Sexton) -: 04/24/17 0410 Drip Comment D10 (Petrona Sexton) Physical Exam General Appearance: Well Developed, No Acute Distress, Anxious, Malnourished Appearance Remarks agitated (Petrona Sexton) Eyes Eye Exam: Pupils Equal (Petrona Sexton) Throat Throat Exam: Oral Mucosa [place] & Moist (Petrona Sexton) Neck Neck Exam: Nuchal Rigidity (Darshan,Petrona B. COUNTERINTELLIGENCE AGENT) Pulmonary Resp Exam: Clear Bilaterally, Breath Sounds Equal, No Distress (Petrona SextonP) Cardiology CV Exam: Regular, Normal Sinus Rhythm, Good Perfusion (Petrona Sexton) Gastrointestinal/Abdomen GI Exam: Soft, Non-Tender, Bowel Sounds Present (Petrona Sexton) Musculoskeletal MS Exam: Joints Intact, Unable to Ambulate (Petrona Sexton) Integumentary Skin Exam: Clear, Warm, Dry, Intact (Petrona Sexton COUNTERINTELLIGENCE AGENT) Extremeties Extremities Exam: No Edema, Pedal Pulses Palpable Extremeties Remarks right arm AVF, + thrill, bruit; aneurism is present (Petrona Sexton) Neurologic Neuro Exam: Awake, Curator Equal, Combative (Petrona Sexton) Psychiatric Psych Remarks awake, confused, very paranoid (Petrona Sexton) Assessment/Plan Discussed Condition With: Patient, Son Assessment Summary: Anemia of CKD, Hypertension, Diabetes Mellitus, End Stage Renal Disease Problem List: (1) Septicemia due to Staphylococcus aureus ICD Codes: A41.01 - Sepsis due to Methicillin susceptible Staphylococcus aureus Status: Acute Plan: ID following. Repeat blood culture is positive as well. On Cefazolin. Her son has not given consent for DANN will be required. Repeat BC today with HD (2) Encephalopathy acute ICD Codes: G93.40 - Encephalopathy, unspecified Plan: workup is in progress. Appears to be worsening. Multifactorial. Evaluated by psychiatry, may need reevaluation. No improvement. s/p LP. She is now restrained, on abilify and zyprexa with ativan PRN although she is refusing PO medications. (3) ESRD (end stage renal disease) ICD Codes: N18.6 - End-stage renal disease Status: Chronic Plan: Due today for dialysis She has refused AM labs, will attempt to collect with HD today Obtain intermittent metabolic profile Currently on D10 while NPO. (4) Hyperkalemia ICD Codes: E87.5 - Hyperkalemia Status: Acute Plan: Due to renal failure corrected, monitor for recurrence (5) Hypertensive urgency, malignant ICD Codes: I16.0 - Hypertensive urgency Status: Acute Plan: BP improved, off nicardipine On oral medications (6) Anemia ICD Codes: D64.9 - Anemia Status: Acute Plan: Epogen not required (7) Metabolic bone disease ICD Codes: E88.9 - Metabolic bone disease; M90.80 - Osteopathy in diseases classified elsewhere, unspecified site Status: Acute Plan: Continue Renvela, intermittently monitor phosphorus level (8) Diabetes mellitus type 2 with complications ICD Codes: E11.8 - Type 2 diabetes mellitus with manifestations Status: Chronic Plan: Insulin as needed, goal 140-180 mg/dL. On D10 while she is restrained and refusing swallow evaluation (Petrona Sexton) Plan patient was seen and examined. She is psychotic, unable to take decisions for herself. Dialysis today. Psychiatry on the case. Notes were reviewed. (Louis Fagan MD) Petrona Sexton Apr 26, 2017 09:54 Louis Fagan MD Apr 26, 2017 21:02
--- NOTE | 2017-04-26 10:26 | HHI.PYPN ---
Subjective Remarks Patient was seen today for psychiatric reevaluation, patient is restless, talkative, disinhibited. Patient says that "I know that you are here to see my cooky" pointing to her genital parts. Patient is unable to follow a conversation, she becomes tangential and disorganized. She has visible fluctuation of consciousness and is internally preoccupied. Surprisingly she is oriented 3. She has been consistently refusing medications. Patient is unable to verbalize the reason of her hospitalization, the nature of her underlying medical conditions, she was not able to express understanding and appreciation of the acuity of her medical presentation of this moment. Review of Systems ROS Limitations: Uncooperative Mental Status Examination Appearance: Appropriate Consciousness: Obtunded Orientation: Person Motor Activity: Abnormal gait Speech: Slow, Incoherent Language: Adequate Fund of Knowledge: Inadequate Attention and Concentration: Inadequate Memory: Impaired Mood: Oppositional Affect: Flat Thought Process & Associations: Loose associations Thought Content: Thought blocking Hallucination Type: None Delusion Type: None Suicidal Ideation: No Suicidal Plan: No Suicidal Intention: No Homicidal Ideation: No Homicidal Plan: No Homicidal Intention: No Insight: Fair Judgment: Impulsive Results Labs Test 04/26/17 04:54 Prothrombin Time 15.0 SEC Prothromb Time International Ratio 1.3 RATIO Date/Time Source Procedure Growth Status 04/22/17 09:00 Blood Peripheral Aerobic Blood Culture - Final Staphylococcus Aureus Complete 04/22/17 09:00 Anaerobic Blood Culture - Final Staphylococcus Aureus Complete 04/21/17 09:31 Cerebral Spinal Fluid Lumbar Puncture Fungal Smear - Final NO FUNGAL ELEMENTS SEEN. Resulted 04/21/17 09:31 Cerebral Spinal Fluid Lumbar Puncture Fungal Culture Pending Resulted 04/20/17 09:00 Nasal Aspirate Influenza Types A,B Antigen (SANTOSH) - Final NEGATIVE FOR FLU A AND B ANTIGEN.... Complete Vitals/IOs Vital Signs Date Time Temp Pulse Resp B/P (MAP) Pulse Ox O2 Delivery O2 Flow Rate FiO2 04/26/17 10:00 67 04/26/17 08:00 Room Air 04/26/17 08:00 20 158/74 (102) 04/26/17 04:00 98.4 94 04/26/17 01:29 21 04/25/17 07:00 2.00 Intake and Output 04/26/17 04/26/17 04/27/17 08:00 16:00 00:00 Output Total 0 ml Balance 0 ml Assessment & Plan Problem List: (1) Delirium due to another medical condition ICD Codes: F05 - Delirium due to known physiological condition Assessment & Plan: Patient is very disorganized, psychotic, with poor attention span and fluctuation of consciousness. The etiology of presentation is still unclear, since the patient doesn't have any documented psychiatric history, delirium is #1 in the differential, but primary psychosis is is still possible. Continue Abilify for psychosis. Olanzapine 5 mg IM every 8 hours for agitation and potential aggressive behavior. Patient does not have capacity to refuse medication or participate in decisions about treatment. Healthcare by proxy, who is the son, will be making decisions for the patient. The patient might benefit of medside admission. We'll follow-up. Assessment & Plan Estimated LOS: days Justification for Cont. Inpt. Patient might benefit of psychiatric admission. Aaron Burnett MD Apr 26, 2017 10:26
[2017-04-26] MEDS ORDERED: OLANZapine IM 10 MG VIAL IM ONE (10:30)
--- NOTE | 2017-04-26 10:37 | HHI.PR ---
Subjective Remarks Patient seen in room with son present. Patient is belligerent and nude refusing to cover up. Restraints were applied again earlier today. Patient's thought processes are logical. Care plan discussed with ICU nursing team as well as supervising nurse Patient refuses to wear clothes and pose a danger to herself. Objective Vitals Vital Signs Date Time Temp Pulse Resp B/P (MAP) Pulse Ox O2 Delivery O2 Flow Rate FiO2 04/26/17 10:00 67 04/26/17 08:00 71 04/26/17 08:00 71 04/26/17 08:00 Room Air 04/26/17 08:00 71 20 158/74 (102) 04/26/17 06:00 61 04/26/17 04:00 58 04/26/17 04:00 98.4 58 17 138/65 (89) 94 04/26/17 02:00 58 04/26/17 01:29 96 21 04/26/17 00:00 61 18 140/65 (90) 94 04/26/17 00:00 59 04/25/17 22:19 61 130/62 04/25/17 22:00 61 04/25/17 20:00 59 04/25/17 20:00 96 21 04/25/17 20:00 98.5 59 16 130/61 (84) 94 04/25/17 19:00 94 Room Air 04/25/17 18:00 63 04/25/17 16:00 62 20 127/60 (82) 93 04/25/17 16:00 62 04/25/17 14:00 64 04/25/17 12:00 67 04/25/17 12:00 98.3 67 18 115/76 (89) 95 I/O 04/25/17 04/25/17 04/25/17 04/26/17 04/26/17 04/26/17 07:00 15:00 23:00 07:00 15:00 23:00 Intake Total 59 ml 0 ml Output Total 0 ml 0 ml 0 ml Balance 59 ml 0 ml 0 ml Intake Oral 0 ml IV Total 59 ml Output Urine Total 0 ml 0 ml 0 ml # Bowel Movements 0 Result Diagram: 04/24/17 0410 Imaging Last Impressions Lumbar Puncture Fluoroscopy 04/20/17 0000 Signed Impressions: Service Date/Time: Friday, April 21, 2017 08:41 - CONCLUSION: Uncomplicated fluoroscopically guided lumbar puncture with pressures as above. Cedrick Khan MD Brain MRI 04/20/17 0000 Signed Impressions: Service Date/Time: April 16:28 - CONCLUSION: Mild nonspecific white matter signal change. Anival Moore MD Head CT 04/19/17 0958 Signed Impressions: Service Date/Time: Wednesday, April 19, 2017 11:00 - CONCLUSION: Negative for acute process. There is no sinus disease. Clayton Romero MD FACR Cervical Spine CT 04/19/17 0958 Signed Impressions: Service Date/Time: Wednesday, April 19, 2017 11:00 - CONCLUSION: 1. There is moderate to severe multilevel degenerative disc disease with possible canal stenosis at C3-C4, C5-C6, and C6-C7, as above. There are additional areas of mild neural foraminal narrowing. These findings could be better delineated with MRI, if needed. 2. No acute cervical spine abnormality is identified. Anival Anderson MD Chest X-Ray 04/19/17 0942 Signed Impressions: Service Date/Time: Wednesday, April 19, 2017 10:30 - CONCLUSION: Moderate congestive failure. Clayton Romero MD FACR Objective Remarks GENERAL: Patient is a well-nourished and well-developed female CARDIOVASCULAR: Refused, regular rate on telemetry RESPIRATORY: Refused no acute respiratory distress GASTROINTESTINAL: Refused MUSCULOSKELETAL: Moving all fours NEURO: She is very confused restless, talkative, disinhibited. Oriented x4 to person, place, time, situation and poorly cooperative. A/P Problem List: (1) Hypertensive urgency, malignant ICD Code: I16.0 - Hypertensive urgency Status: Acute Plan: hypotensive now HD per renal (2) ESRD (end stage renal disease) ICD Code: N18.6 - End-stage renal disease Status: Chronic Plan: HD per renal, patient not agreeable today follow bmp Renvela, follow electrolytes (3) Metabolic encephalopathy ICD Code: G93.41 - Metabolic encephalopathy Plan: likely multifactorial delirium due to bacteremia, HTN urgency (usually very cooperative and independent with self care) eeg wnl, MRI brain wnl abilify rx per psychiatry but patient refuses restraints as needed, sitter olanzepine (4) Septicemia due to Staphylococcus aureus ICD Code: A41.01 - Sepsis due to Methicillin susceptible Staphylococcus aureus Status: Acute Plan: cefazolin, daptomycin IV ID following but patient refusing exam recommend DANN, but patient and son refuse (5) Diabetes mellitus type 2 with complications ICD Code: E11.8 - Type 2 diabetes mellitus with manifestations Status: Chronic Plan: Cont to follow bg, D10 IV as patient refusing to eat (6) Afib ICD Code: I48.91 - Unspecified atrial fibrillation Plan: paroxysmal, cont cardizem, heparin/warfarin (ptn refuses) Assessment and Plan MedSurg unit Continue IV Katarzyna Sanchez MD Apr 26, 2017 10:37
--- NOTE | 2017-04-26 11:56 | HHI.IDPN ---
Note Infectious Disease Note ID coverage. Patient more cooperative. Affect is labile. examined in presence of PT . No distress. Afebrile. No Dyspnea. Patient and son refusing DANN for which she was transferred for HPO. Repeat blood culture pending. Blood culture 04/22 has MSSA. Antibiotics IV Cefazolin Lines Peripheral Past Medical History ESRD Allergies: Coded Allergies: azithromycin (Verified Allergy, Severe, 04/19/17) vancomycin (Verified Allergy, Severe, PT VERIFIED RASH WITH VANCOMYCIN., 04/19/17) Objective Vital Signs Date Time Temp Pulse Resp B/P (MAP) Pulse Ox O2 Delivery O2 Flow Rate FiO2 04/26/17 10:00 67 04/26/17 08:00 71 04/26/17 08:00 71 04/26/17 08:00 Room Air 04/26/17 08:00 71 20 158/74 (102) 04/26/17 06:00 61 04/26/17 04:00 58 04/26/17 04:00 98.4 58 17 138/65 (89) 94 04/26/17 02:00 58 04/26/17 01:29 96 21 04/26/17 00:00 61 18 140/65 (90) 94 04/26/17 00:00 59 04/25/17 22:19 61 130/62 04/25/17 22:00 61 04/25/17 20:00 59 04/25/17 20:00 96 21 04/25/17 20:00 98.5 59 16 130/61 (84) 94 04/25/17 19:00 94 Room Air 04/25/17 18:00 63 04/25/17 16:00 62 20 127/60 (82) 93 04/25/17 16:00 62 04/25/17 14:00 64 04/25/17 12:00 67 04/25/17 12:00 98.3 67 18 115/76 (89) 95 PHYSICAL EXAM: HEENT: EOMI, No icterus. NECK: Supple. No swelling. No JVD. LUNGS: Clear breath sounds. CARDIAC: Nl S1S2. Regular rate and rhythm. No murmur. ABDOMEN: Soft, non tender. EXT: LUE AVF without erythema. SKIN: No rash. chronic dark macular spot lesions scattered over arms and legs. NEURO. not able to fully assess. patient noncooperation. PSYCH: confused. Diagnosis: Septicemia due to Staphylococcus aureus. No clear source. ESRD (end stage renal disease) on dialysis via AV fistula at [facility] [place]. Recommend: Monitor repeat blood cultures with dialysis tomorrow. Continue IV Cefazolin. Stone Farmer MD Apr 26, 2017 11:56
--- NOTE | 2017-04-26 12:25 | HHI.DCPOC ---
Discharge Care Plan Diagnosis: (1) Psychosis (2) ESRD (end stage renal disease) (3) Afib (4) Delirium due to another medical condition Goals to Promote Your Health * To prevent worsening of your condition and complications * To maintain your health at the optimal level Directions to Meet Your Goals Take your medications as prescribed Follow your dietary instruction Follow activity as directed Keep your appointments as scheduled Take your immunizations and boosters as scheduled If your symptoms worsen call your PCP, if no PCP go to Urgent Care Center or Emergency Room Smoking is Dangerous to Your Health. Avoid second hand smoke Call the 24-hour hour crisis hotline for domestic abuse at Katarzyna Lira MD Apr 26, 2017 12:25
[2017-04-26] MEDS: DEXTROSE 10% INJ 1,000 ML IV SCH (12:30)
[2017-04-26 15:13] LABS: BASOPHIL % 0.4 % (0.0-2.0); EOSINOPHIL # 0.2 TH/MM3 (0-0.4); EOSINOPHIL % 2.7 % (0.0-4.0); HEMATOCRIT 36.5 % (35.0-46.0); HEMO FLAGS DIFF FINAL; LYMPH % 13.9 % (9.0-44.0); LYMPHOCYTE # 0.9 TH/MM3 (1.0-4.8); MEAN CELL VOLUME 90.9 FL (80.0-100.0); MEAN CORPUSCULAR HEMOGLOBIN 29.2 PG (27.0-34.0); MEAN CORPUSCULAR HGB CONC 32.1 % (32.0-36.0); MONO % 8.2 % (0.0-8.0); NEUT % 74.8 % (16.0-70.0); PLATELET COUNT 185 TH/MM3 (150-450); RED BLOOD COUNT 4.02 MIL/MM3 (4.00-5.30); RED CELL DISTRIBUTION WIDTH 16.4 % (11.6-17.2); WHITE BLOOD COUNT 6.7 TH/MM3 (4.0-11.0)
[2017-04-26 15:44] LABS: BICARBONATE 23.6 MEQ/L (21.0-32.0); POTASSIUM 4.4 MEQ/L (3.5-5.1)
[2017-04-26] MEDS: WARFARIN SOD 7.5 MG TAB PO SCH (16:00)
[2017-04-26] MEDS ORDERED: WARFARIN SOD 2.5 MG TAB PO ONE (16:00)
[2017-04-26] MEDS ORDERED: DILTIAZEM-CD 180 MG CAP ER PO ONE (23:30)
[2017-04-26] MEDS ORDERED: DILTIAZEM HCL 25 MG/5 ML VIAL IV ONE (23:30)
[2017-04-26] MEDS ORDERED: AMIODARONE 200 MG TAB PO ONE (23:30)
[2017-04-27] VITALS (7 sets, daily range): BP systolic 108–165; BP diastolic 60–74; PULSE 73–123; RESP 16–18; TEMP 98.1–98.3; O2SAT 95–97
[2017-04-27] MEDS: INSULIN ASPART SUPPLEMENTAL SCALE SQ SCH (08:00)
[2017-04-27] MEDS: DILTIAZEM-CD 180 MG CAP ER PO SCH (08:16)
[2017-04-27] MEDS: HEPARIN SODIUM - SQ 10,000 UNITS/ML VIAL SQ SCH ×2 (08:16→08:24)
[2017-04-27] MEDS: AMIODARONE 200 MG TAB PO SCH (08:16)
[2017-04-27] MEDS: ARIPiprazole 2 MG TAB PO SCH (08:17)
[2017-04-27] MEDS: ceFAZolin 1,000 MG/NS 100 ML IV SCH ×2 (08:17)
--- NOTE | 2017-04-27 08:35 | PD.CARD.PN ---
Subjective Subjective Remarks Denies dyspnea, CP, dizziness, nausea, palpitations. Objective Medications Item Value Date Time Diltiazem HCl 180 mg 04/26/17 0900 (Cardizem Cd) DAILY/PO 04/27/17 0816 Amiodarone HCl 400 mg 04/26/17 0900 (Cordarone) DAILY/PO 04/27/17 0816 Heparin Sodium 5,000 units 04/25/17 2100 (Porcine) Q12HR/SQ (Heparin Inj) Warfarin Sodium 7.5 mg 04/25/17 1600 (Coumadin) DAILY@1600/PO Current Medications Medications (Trade) Dose Ordered Sig/[place] Route Start Time Stop Time Status Last Admin Sodium Chloride 1,000 ml @ 0 mls/hr Q0M PRN OTHER 04/19/17 12:50 (Heparin Inj) 8,000 units UNSCH PRN IV FLUSH 04/19/17 13:00 Sodium Chloride 1,000 ml @ 200 mls/hr Q5H PRN IV 04/19/17 12:50 Sodium Chloride 1,000 ml @ 0 mls/hr Q0M PRN OTHER 04/19/17 12:50 (Mannitol Inj) 12.5 gm UNSCH PRN IV 04/19/17 13:00 Albumin Human 100 ml @ 60 mls/hr UNSCH PRN IV 04/19/17 13:00 04/21/17 15:48 (NS Flush) 5 ml UNSCH PRN IV FLUSH 04/19/17 13:00 (Heparin Inj) UNSCH PRN .XX 04/19/17 13:00 (Gentamicin (Dialysis) Inj) 20 mg UNSCH PRN OTHER 04/19/17 13:00 (Zofran Inj) 4 mg UNSCH PRN IV PUSH 04/19/17 13:00 04/19/17 14:11 (Tylenol) 650 mg UNSCH PRN PO 04/19/17 13:00 04/20/17 22:19 (Benadryl) 25 mg UNSCH PRN PO 04/19/17 13:00 (Nitrostat Sl) 0.4 mg UNSCH PRN SL 04/19/17 13:00 (Catapres) 0.1 mg UNSCH PRN PO 04/19/17 13:00 04/21/17 05:07 (Gelfoam 12 Mm/7 Mm Top) 1 foam UNSCH PRN TOP 04/19/17 13:00 04/21/17 15:48 (D50w (Vial) Inj) 50 ml UNSCH PRN IV PUSH 04/19/17 16:30 (Glucagon Inj) 1 mg UNSCH PRN OTHER 04/19/17 16:30 (NovoLOG SUPPLEMENTAL SCALE) 1 ACHS SLIDING SCALE SQ 04/19/17 17:00 04/27/17 08:00 Miscellaneous Information Patient in critical care unit? Ass... Q361D .XX 04/19/17 22:45 04/19/17 22:45 (Morphine Inj) 2 mg Q3H PRN IV PUSH 04/19/17 23:00 04/21/17 20:12 Pharmacy Profile Note ml @ 0 mls/hr UNSCH OTHER 04/21/17 12:45 (ZyPREXA INJ) 5 mg Q12HR PRN IM 04/23/17 21:00 04/24/17 09:12 (Abilify) 2 mg BID PO 04/24/17 10:00 04/24/17 20:58 (Romazicon Inj) 0.2 mg UNSCH PRN IV 04/24/17 13:30 04/24/17 17:50 Cefazolin Sodium 1000 mg/Sodium Chloride 100 ml @ 200 mls/hr Q12H IV 04/24/17 21:00 04/27/17 08:17 (Coumadin) 7.5 mg DAILY@1600 PO 04/25/17 16:00 Dextrose 1,000 ml @ 20 mls/hr Q24H IV 04/25/17 12:30 04/26/17 12:30 (Heparin Inj) 5,000 units Q12HR SQ 04/25/17 21:00 04/26/17 21:51 (Cardizem Cd) 180 mg DAILY PO 04/26/17 09:00 04/27/17 08:16 (Cordarone) 400 mg DAILY PO 04/26/17 09:00 04/27/17 08:16 Vital Signs / I&O Vital Signs Date Time Temp Pulse Resp B/P (MAP) Pulse Ox O2 Delivery O2 Flow Rate FiO2 04/27/17 07:00 98 Room Air 04/27/17 06:00 78 04/27/17 04:00 76 04/27/17 04:00 98.1 76 16 131/63 (85) 97 04/27/17 02:00 79 04/27/17 00:00 123 04/27/17 00:00 98.3 123 18 108/60 (76) 97 04/26/17 22:00 126 04/26/17 20:00 86 04/26/17 20:00 98.5 86 16 135/104 (114) 97 04/26/17 19:00 97 Room Air 04/26/17 16:00 69 04/26/17 14:00 68 04/26/17 13:27 99 21 04/26/17 12:00 64 04/26/17 12:00 64 164/74 (104) 04/26/17 10:00 67 I/O 04/26/17 04/26/17 04/26/17 04/27/17 04/27/17 04/27/17 07:00 15:00 23:00 07:00 15:00 23:00 Intake Total 600 ml 100 ml 180 ml 500 ml Output Total 0 ml 0 ml Balance 0 ml 600 ml 100 ml 180 ml 500 ml Intake Oral 180 ml IV Total 600 ml 100 ml 500 ml Output Urine Total 0 ml 0 ml # Bowel Movements 0 1 Physical Exam GENERAL: Well developed, well nourished. No acute distress. HEENT: Jugular venous pressure is normal. CHEST: Lungs clear to auscultation anteriorly. CARDIAC: Regular rate and rhythm without S3, S4, or murmur. ABDOMEN: Soft, nontender, no hepatosplenomegaly. Bowel sounds present. EXTREMITIES: No clubbing, cyanosis, or edema. Laboratory Laboratory Tests Test 04/26/17 14:36 White Blood Count 6.7 TH/MM3 Red Blood Count 4.02 MIL/MM3 Hemoglobin 11.7 GM/DL Hematocrit 36.5 % Mean Corpuscular Volume 90.9 FL Mean Corpuscular Hemoglobin 29.2 PG Mean Corpuscular Hemoglobin Concent 32.1 % Red Cell Distribution Width 16.4 % Platelet Count 185 TH/MM3 Mean Platelet Volume 10.7 FL Neutrophils (%) (Auto) 74.8 % Lymphocytes (%) (Auto) 13.9 % Monocytes (%) (Auto) 8.2 % Eosinophils (%) (Auto) 2.7 % Basophils (%) (Auto) 0.4 % Neutrophils # (Auto) 5.0 TH/MM3 Lymphocytes # (Auto) 0.9 TH/MM3 Monocytes # (Auto) 0.5 TH/MM3 Eosinophils # (Auto) 0.2 TH/MM3 Basophils # (Auto) 0.0 TH/MM3 CBC Comment DIFF FINAL Differential Comment Blood Urea Nitrogen 88 MG/DL Creatinine 10.45 MG/DL Random Glucose 213 MG/DL Albumin 3.2 GM/DL Calcium Level 8.6 MG/DL Phosphorus Level 5.6 MG/DL Sodium Level 130 MEQ/L Potassium Level 4.4 MEQ/L Chloride Level 92 MEQ/L Carbon Dioxide Level 23.6 MEQ/L Anion Gap 14 MEQ/L Estimat Glomerular Filtration Rate 5 ML/MIN Assessment and Plan Problem List: (1) Paroxysmal atrial fibrillation ICD Codes: I48.0 - Paroxysmal atrial fibrillation Status: Acute Plan: Remains in NSR. INR still subtherapeutic. Rec continue to adjust warfarin to achieve therapeutic INR. Continue Amiodarone, Cardizem at present dosing. OK to discharge from a cardiac standpoint. (2) Elevated troponin ICD Codes: R74.8 - Abnormal levels of other serum enzymes Status: Acute Plan: Minimally elevated troponin, doubt due to ACS. Suspect slight elevation due to atrial fib with RVR. (3) Septicemia due to Staphylococcus aureus ICD Codes: A41.01 - Sepsis due to Methicillin susceptible Staphylococcus aureus Status: Acute Plan: DANN scheduled for yesterday morning but reportedly son will not give consent. Please call if consent ever gets obtained. (4) Hypertension ICD Codes: I10 - Essential (primary) hypertension Plan: Overall stable. Mostly normotensive. Code Status full code Discussed Condition With patient Problem Qualifiers (1) Hypertension: Qualified Codes: I10 - Essential (primary) hypertension Nickolas Hinojosa MD Apr 27, 2017 08:35
--- NOTE | 2017-04-27 10:27 | HHI.PYPN ---
Subjective Remarks On psychiatric evaluation today patient is found in the ICU, she is restrained in 2 points, very talkative, with rapid speech, no pressure, but marked expansive affect. She says that she feels happier than ever, with a lot of energy, "I feel like worth 1 million-dollar", she also makes explicit sexual comments, reports not having any desire to sleep at night. He is fully oriented 3. During the interview she also starts thinking "I can sing all the answers that you need". She denies visual and auditory hallucinations, she denies suicidal and homicidal ideation. Patient has been refusing to take psychotropics. I have spent some time with psychoeducation about the importance of taking psychotropics. Review of Systems Except as stated in HPI: all other systems reviewed are Neg Mental Status Examination Appearance: Appropriate Consciousness: Obtunded Orientation: Person Motor Activity: Abnormal gait Speech: Slow, Incoherent Language: Adequate Fund of Knowledge: Inadequate Attention and Concentration: Inadequate Memory: Impaired Mood: Irritable, Manic Affect: Labile, Other (expansive) Thought Process & Associations: Loose associations Thought Content: Thought blocking Hallucination Type: None Delusion Type: None Suicidal Ideation: No Suicidal Plan: No Suicidal Intention: No Homicidal Ideation: No Homicidal Plan: No Homicidal Intention: No Insight: Poor Judgment: Poor Results Labs Test 04/26/17 14:36 White Blood Count 6.7 TH/MM3 Red Blood Count 4.02 MIL/MM3 Hemoglobin 11.7 GM/DL Hematocrit 36.5 % Mean Corpuscular Volume 90.9 FL Mean Corpuscular Hemoglobin 29.2 PG Mean Corpuscular Hemoglobin Concent 32.1 % Red Cell Distribution Width 16.4 % Platelet Count 185 TH/MM3 Mean Platelet Volume 10.7 FL Neutrophils (%) (Auto) 74.8 % Lymphocytes (%) (Auto) 13.9 % Monocytes (%) (Auto) 8.2 % Eosinophils (%) (Auto) 2.7 % Basophils (%) (Auto) 0.4 % Neutrophils # (Auto) 5.0 TH/MM3 Lymphocytes # (Auto) 0.9 TH/MM3 Monocytes # (Auto) 0.5 TH/MM3 Eosinophils # (Auto) 0.2 TH/MM3 Basophils # (Auto) 0.0 TH/MM3 CBC Comment DIFF FINAL Differential Comment Blood Urea Nitrogen 88 MG/DL Creatinine 10.45 MG/DL Random Glucose 213 MG/DL Albumin 3.2 GM/DL Calcium Level 8.6 MG/DL Phosphorus Level 5.6 MG/DL Sodium Level 130 MEQ/L Potassium Level 4.4 MEQ/L Chloride Level 92 MEQ/L Carbon Dioxide Level 23.6 MEQ/L Anion Gap 14 MEQ/L Estimat Glomerular Filtration Rate 5 ML/MIN Date/Time Source Procedure Growth Status 04/26/17 14:36 Blood Other Aerobic Blood Culture Pending Received 04/26/17 14:36 Blood Other Anaerobic Blood Culture Pending Received 04/21/17 09:31 Cerebral Spinal Fluid Lumbar Puncture Fungal Smear - Final NO FUNGAL ELEMENTS SEEN. Resulted 04/21/17 09:31 Cerebral Spinal Fluid Lumbar Puncture Fungal Culture Pending Resulted 04/20/17 09:00 Nasal Aspirate Influenza Types A,B Antigen (SANTOSH) - Final NEGATIVE FOR FLU A AND B ANTIGEN.... Complete Vitals/IOs Vital Signs Date Time Temp Pulse Resp B/P (MAP) Pulse Ox O2 Delivery O2 Flow Rate FiO2 04/27/17 08:48 97 21 04/27/17 07:00 Room Air 04/27/17 06:00 78 04/27/17 04:00 98.1 16 131/63 (85) 04/25/17 07:00 2.00 Intake and Output 04/27/17 04/27/17 04/28/17 08:00 16:00 00:00 Intake Total 680 ml Output Total 0 ml Balance 680 ml Assessment & Plan Problem List: (1) Delirium due to another medical condition ICD Codes: F05 - Delirium due to known physiological condition (2) Unspecified psychosis ICD Codes: F29 - Unspecified psychosis not due to a substance or known physiological condition Assessment & Plan: Patient seems to be psychotic and with manic symptoms. She does not have any previous psychiatric history. As per son, patient is far from baseline. Patient benefit of psychiatric admission for stabilization. Continue Abilify 2 mg twice a day. Assessment & Plan Estimated LOS: days Justification for Cont. Inpt. Patient benefits of psychiatric admission for stabilization. Aaron Burnett MD Apr 27, 2017 10:27
--- NOTE | 2017-04-27 11:12 | HHI.PR ---
Subjective Remarks Patient seen in follow up for Psychosis and Bacteremia Much more coherent today Able to describe phlebotomy procedures. For example she says she was "dehydrated", and the internet salesperson did have to use a butterfly needle. Which is what he uses for children or when people are dehydrated". She then proceeded to attempt to stent her skin and say that it was not "perky". admits her nude behavior yesterday was a response to the restraints being applied and that was "the only thing she could control". She admits that this was inappropriate behavior with her son present and she acknowledges she is in the hospital for bacteremia. She agrees to stay for continued medical treatment She is able to describe her history of illicit slight difficulties with nephrology related to milk intake and calcium and phosphate The patient also can explain her dialysis procedures as well as her oral intake of fluid restricted to 32 ounces (also she is able to add very quickly regarding the amount of fluid she is able to take in small patches to total 32 ounces and a 24-hour period) Objective Vitals Vital Signs Date Time Temp Pulse Resp B/P (MAP) Pulse Ox O2 Delivery O2 Flow Rate FiO2 04/27/17 10:00 75 04/27/17 08:48 97 21 04/27/17 08:00 98.1 73 18 165/74 (104) 95 04/27/17 08:00 73 04/27/17 07:00 98 Room Air 04/27/17 06:00 78 04/27/17 04:00 76 04/27/17 04:00 98.1 76 16 131/63 (85) 97 04/27/17 02:00 79 04/27/17 00:00 123 04/27/17 00:00 98.3 123 18 108/60 (76) 97 04/26/17 22:00 126 04/26/17 20:00 86 04/26/17 20:00 98.5 86 16 135/104 (114) 97 04/26/17 19:00 97 Room Air 04/26/17 16:00 69 04/26/17 14:00 68 04/26/17 13:27 99 21 04/26/17 12:00 64 04/26/17 12:00 64 164/74 (104) I/O 04/26/17 04/26/17 04/26/17 04/27/17 04/27/17/16/17 06:59 14:59 22:59 06:59 14:59 22:59 Intake Total 600 ml 100 ml 180 ml 500 ml Output Total 0 ml 0 ml Balance 0 ml 600 ml 100 ml 180 ml 500 ml Intake Oral 180 ml IV Total 600 ml 100 ml 500 ml Output Urine Total 0 ml 0 ml # Bowel Movements 0 1 Result Diagram: 04/26/17 1436 04/26/17 1436 Objective Remarks GENERAL: Patient is a well-nourished and well-developed female CARDIOVASCULAR: Refused, regular rate on telemetry RESPIRATORY: Refused no acute respiratory distress GASTROINTESTINAL: Refused MUSCULOSKELETAL: Moving all fours without difficulty NEURO: Alert and oriented 3, no acute distress, restraints 4 A/P Problem List: (1) Hypertensive urgency, malignant ICD Code: I16.0 - Hypertensive urgency Status: Acute Plan: Improved, continue hemodialysis and home regimen (2) ESRD (end stage renal disease) ICD Code: N18.6 - End-stage renal disease Status: Chronic Plan: Hemodialysis completed, follow renal panel Renvela, follow electrolytes (3) Metabolic encephalopathy ICD Code: G93.41 - Metabolic encephalopathy Plan: Greatly improved today question of psychosis/delirium likely multifactorial delirium due to bacteremia, HTN urgency (usually very cooperative and independent with self care) eeg wnl, MRI brain wnl abilify rx per psychiatry but patient refuses restraints as needed, sitter olanzepine (4) Septicemia due to Staphylococcus aureus ICD Code: A41.01 - Sepsis due to Methicillin susceptible Staphylococcus aureus Status: Acute Plan: MSSA cefazolin IV ID following but patient refusing exam recommend DANN, but patient and son refuse repeat cultures 04/26 (5) Diabetes mellitus type 2 with complications ICD Code: E11.8 - Type 2 diabetes mellitus with manifestations Status: Chronic Plan: Improved oral intake Speech eval appreciated (6) Afib ICD Code: I48.91 - Unspecified atrial fibrillation Plan: paroxysmal, cont cardizem, heparin/warfarin (ptn refuses) Assessment and Plan MedPsych unit Continue IV antibiotics and psychiatric evaluation Katarzyna Lira MD Apr 27, 2017 11:12
--- NOTE | 2017-04-27 11:39 | HHI.IDPN ---
Note Infectious Disease Note ID coverage. Patient is cooperative. Pleasant. says she is happy. Very jovial. Sounds appropriate. No distress. Afebrile. Patient and son refused DANN for which she was transferred for HPO. Repeat blood culture pending. Negative 1 day. Blood culture 04/22 has MSSA. Antibiotics IV Cefazolin Lines Peripheral Past Medical History ESRD Allergies: Coded Allergies: azithromycin (Verified Allergy, Severe, 04/19/17) vancomycin (Verified Allergy, Severe, PT VERIFIED RASH WITH VANCOMYCIN., 04/19/17) Objective Vital Signs Date Time Temp Pulse Resp B/P (MAP) Pulse Ox O2 Delivery O2 Flow Rate FiO2 04/27/17 10:00 75 04/27/17 08:48 97 21 04/27/17 08:00 98.1 73 18 165/74 (104) 95 04/27/17 08:00 73 04/27/17 07:00 98 Room Air 04/27/17 06:00 78 04/27/17 04:00 76 04/27/17 04:00 98.1 76 16 131/63 (85) 97 04/27/17 02:00 79 04/27/17 00:00 123 04/27/17 00:00 98.3 123 18 108/60 (76) 97 04/26/17 22:00 126 04/26/17 20:00 86 04/26/17 20:00 98.5 86 16 135/104 (114) 97 04/26/17 19:00 97 Room Air 04/26/17 16:00 69 04/26/17 14:00 68 04/26/17 13:27 99 21 04/26/17 12:00 64 04/26/17 12:00 64 164/74 (104) Laboratory Tests Test 04/26/17 14:36 White Blood Count 6.7 TH/MM3 Red Blood Count 4.02 MIL/MM3 Hemoglobin 11.7 GM/DL Hematocrit 36.5 % Mean Corpuscular Volume 90.9 FL Mean Corpuscular Hemoglobin 29.2 PG Mean Corpuscular Hemoglobin Concent 32.1 % Red Cell Distribution Width 16.4 % Platelet Count 185 TH/MM3 Mean Platelet Volume 10.7 FL Neutrophils (%) (Auto) 74.8 % Lymphocytes (%) (Auto) 13.9 % Monocytes (%) (Auto) 8.2 % Eosinophils (%) (Auto) 2.7 % Basophils (%) (Auto) 0.4 % Neutrophils # (Auto) 5.0 TH/MM3 Lymphocytes # (Auto) 0.9 TH/MM3 Monocytes # (Auto) 0.5 TH/MM3 Eosinophils # (Auto) 0.2 TH/MM3 Basophils # (Auto) 0.0 TH/MM3 CBC Comment DIFF FINAL Differential Comment Laboratory Tests Test 04/26/17 14:36 Blood Urea Nitrogen 88 MG/DL Creatinine 10.45 MG/DL Random Glucose 213 MG/DL Albumin 3.2 GM/DL Calcium Level 8.6 MG/DL Phosphorus Level 5.6 MG/DL Sodium Level 130 MEQ/L Potassium Level 4.4 MEQ/L Chloride Level 92 MEQ/L Carbon Dioxide Level 23.6 MEQ/L Anion Gap 14 MEQ/L Estimat Glomerular Filtration Rate 5 ML/MIN Microbiology Date/Time Source Procedure Growth Status 04/26/17 14:36 Blood Other Aerobic Blood Culture - Preliminary NO GROWTH IN 1 DAY Resulted 04/26/17 14:36 Blood Other Anaerobic Blood Culture - Preliminary NO GROWTH IN 1 DAY Resulted 04/26/17 14:30 Blood Other Aerobic Blood Culture - Preliminary NO GROWTH IN 1 DAY Resulted 04/26/17 14:30 Blood Other Anaerobic Blood Culture - Preliminary NO GROWTH IN 1 DAY Resulted PHYSICAL EXAM: HEENT: EOMI, No icterus. no thrush. NECK: Supple. No swelling. No JVD. LUNGS: Clear breath sounds. CARDIAC: Nl S1S2. Regular rate and rhythm. No murmur. ABDOMEN: Soft, non tender. EXT: E AVF without erythema. SKIN: No rash. chronic dark macular spot lesions scattered over arms and legs. NEURO. Non focal. PSYCH: Calm and cooperative. Diagnosis: Septicemia due to Staphylococcus aureus. No clear source. ? endocarditis. Patient refused DANN. ESRD (end stage renal disease) on dialysis via AV fistula at [facility]. Appears stable. Recommend: Monitor repeat blood cultures. Continue IV Cefazolin. Monitor clinical status. Stone Farmer MD Apr 27, 2017 11:39
[2017-04-27 13:56] LABS: INTERNATIONAL NORMALIZED RATIO 1.2 RATIO
[2017-04-27] MEDS ORDERED: CALC667T PO (14:33)
[2017-04-27] MEDS ORDERED: SEVEL800 PO (14:33)
--- NOTE | 2017-04-28 15:06 | HHI.IDPN ---
Note Infectious Disease Note ID coverage. Patient was seen previously for Staph sepsis. Patient continues to be cooperative. Pleasant. Very jovial. Appropriate interaction. No distress. Afebrile. Patient and son refused DANN for which she was transferred for HPO. Repeat blood culture pending. Negative x 2 days. Blood culture 04/22 has MSSA. Antibiotics IV Cefazolin Lines Peripheral Past Medical History ESRD Allergies: Coded Allergies: azithromycin (Verified Allergy, Severe, 04/19/17) vancomycin (Verified Allergy, Severe, PT VERIFIED RASH WITH VANCOMYCIN., 04/19/17) Objective Vital Signs Date Time Temp Pulse Resp B/P (MAP) Pulse Ox O2 Delivery O2 Flow Rate FiO2 04/27/17 10:00 75 04/27/17 08:48 97 21 04/27/17 08:00 98.1 73 18 165/74 (104) 95 04/27/17 08:00 73 04/27/17 07:00 98 Room Air 04/27/17 06:00 78 04/27/17 04:00 76 04/27/17 04:00 98.1 76 16 131/63 (85) 97 04/27/17 02:00 79 04/27/17 00:00 123 04/27/17 00:00 98.3 123 18 108/60 (76) 97 04/26/17 22:00 126 04/26/17 20:00 86 04/26/17 20:00 98.5 86 16 135/104 (114) 97 04/26/17 19:00 97 Room Air 04/26/17 16:00 69 04/26/17 14:00 68 04/26/17 13:27 99 21 04/26/17 12:00 64 04/26/17 12:00 64 164/74 (104) Microbiology Date/Time Source Procedure Growth Status 04/26/17 14:36 Blood Other Aerobic Blood Culture - Preliminary NO GROWTH IN 2 DAYS Resulted 04/26/17 14:36 Blood Other Anaerobic Blood Culture - Preliminary NO GROWTH IN 2 DAYS Resulted 04/26/17 14:30 Blood Other Aerobic Blood Culture - Preliminary NO GROWTH IN 2 DAYS Resulted 04/26/17 14:30 Blood Other Anaerobic Blood Culture - Preliminary NO GROWTH IN 2 DAYS Resulted PHYSICAL EXAM: HEENT: EOMI, No icterus. NECK: Supple. No swelling. No JVD. LUNGS: Breath sounds clear. CARDIAC: Nl S1S2. Regular rate and rhythm. No murmur. ABDOMEN: Soft, non tender. EXT: [facility] AVF without erythema. SKIN: No rash. multiple chronic dark macular spot lesions scattered over arms and legs. NEURO. Non focal. PSYCH: Calm and cooperative. Diagnosis: Septicemia due to Staphylococcus aureus. No clear source. ? endocarditis. Patient refused DANN. ESRD (end stage renal disease) on dialysis via AV fistula at [facility]. Stable. Recommend: Continue IV Cefazolin for 10 days duration post negative blood culture then stop antibiotics and do repeat blood culture approximately 48 hours later with dialysis. Monitor clinical status. Stone Farmer MD Apr 28, 2017 15:06
== END 2017-04-27 12:33 | DRG 871 ==
LOC: PHED 09:18 → PHEDA 12:40 → PHICU 17:46 → HIMW 04-24 22:00
PROVIDERS: ADMIT Hospitalist; ATTEND Hospitalist
PROC: 5A09357 Assistance with Respiratory Ventilation, Less than 24 Consecutive Hours, Continuous Positive Airway Pressure (ICD-10-PCS; principal; 2017-04-19)
PROC: 5A1D70Z Performance of Urinary Filtration, Intermittent, Less than 6 Hours Per Day (ICD-10-PCS; 2017-04-19)
PROC: 009U3ZX Drainage of Spinal Canal, Percutaneous Approach, Diagnostic (ICD-10-PCS; 2017-04-21)
DX: A41.01 Sepsis due to Methicillin susceptible Staphylococcus aureus (principal); N18.6 End stage renal disease; G93.41 Metabolic encephalopathy; E88.89 Other specified metabolic disorders; F05 Delirium due to known physiological condition; I12.0 Hypertensive chronic kidney disease with stage 5 chronic kidney disease or end stage renal disease; I38 Endocarditis, valve unspecified; I16.1 Hypertensive emergency; E87.1 Hypo-osmolality and hyponatremia; I48.0 Paroxysmal atrial fibrillation; E11.22 Type 2 diabetes mellitus with diabetic chronic kidney disease; E87.5 Hyperkalemia; E21.3 Hyperparathyroidism, unspecified; H40.9 Unspecified glaucoma; M19.90 Unspecified osteoarthritis, unspecified site; E78.00 Pure hypercholesterolemia, unspecified; R74.0 Nonspecific elevation of levels of transaminase and lactic acid dehydrogenase [LDH]; R74.8 Abnormal levels of other serum enzymes; M50.321 Other cervical disc degeneration at C4-C5 level; Z99.2 Dependence on renal dialysis; Z79.01 Long term (current) use of anticoagulants; Z85.89 Personal history of malignant neoplasm of other organs and systems; Z90.5 Acquired absence of kidney; D63.1 Anemia in chronic kidney disease; Z78.1 Physical restraint status; Z53.20 Procedure and treatment not carried out because of patient's decision for unspecified reasons
CPT/HCPCS: 62270; 70450; 70551; 71010; 72125; 77003; 80048; 80053; 80069; 82140; 82550; 82552; 82607; 82746; 82945; 82948; 83605; 83735; 84132; 84157; 84443; 84484; 85025; 85610; 85652; 85730; 86403; 86592; 86850; 86900; 86901; 87040; 87070; 87102; 87186; 87205; 87206; 87493; 87529; 87641; 87804; 89051; 90935; 93005; 93306; 94002; 95819; 96374; J0133; J0610; J0690; J0692; J0878; J1644; J1650; J1815; J2060; J2270; J2405; J3430; J7040; J7050; P9047

== ENCOUNTER 2017-04-27 12:53 | Inpatient (IN) | payer MEDICARE, OTHER ==
[~2017-04-27] VITALS: Ht 167.6 cm; Wt 75.8 kg
[2017-04-27] MEDS ORDERED: NICOTINE 21 MG/24 HR PATCH T-DERMAL SCH (13:15)
[2017-04-27] MEDS ORDERED: LORazepam 2 MG/ML VIAL IM PRN ×2 (13:15→14:30)
[2017-04-27] MEDS ORDERED: LORazepam 0.5 MG TAB PO PRN (13:15)
[2017-04-27] MEDS ORDERED: GLUCAGON 1 MG/ML VIAL OTHER PRN (14:15)
[2017-04-27] MEDS ORDERED: DEXTROSE 50% IN WATER 50 ML VIAL(D50) IV PUSH PRN (14:15)
[2017-04-27] MEDS ORDERED: MAGNESIUM HYDROXIDE SUSP 30 ML CUP PO PRN (14:15)
[2017-04-27] MEDS ORDERED: ALUMINUM/MAGNESIUM/SIMETH 30 ML CUP PO PRN (14:15)
[2017-04-27] MEDS ORDERED: METOPROLOL SUCCINATE 50 MG EXTENDED RELEASE TAB PO SCH (14:30)
[2017-04-27] MEDS ORDERED: hydrOXYzine HCL 25 MG TAB PO PRN (14:30)
[2017-04-27] MEDS ORDERED: CALC667T PO (14:33)
[2017-04-27] MEDS ORDERED: SEVEL800 PO (14:33)
[2017-04-27] MEDS: AMIODARONE 200 MG TAB PO SCH (16:33)
[2017-04-27] MEDS: DILTIAZEM-CD 180 MG CAP ER PO SCH (16:34)
[2017-04-27] MEDS: INSULIN ASPART SUPPLEMENTAL SCALE SQ SCH ×2 (17:00→21:06)
[2017-04-27 17:16] VITALS: BP 131/60; PULSE 60; RESP 17; TEMP 98.2; O2SAT 97
[2017-04-27 18:06] VITALS: BP 130/57; PULSE 78; RESP 18; TEMP 97.2
[2017-04-27] MEDS: WARFARIN SOD 7.5 MG TAB PO SCH (18:08)
[2017-04-27] MEDS ORDERED: SODIUM CHLOR 0.9% 1000 ML INJ 1,000 ML IV PRN (20:17)
[2017-04-27] MEDS ORDERED: SODIUM CHLOR 0.9% 1000 ML INJ 1,000 ML OTHER PRN ×2 (20:17)
--- NOTE | 2017-04-27 20:18 | HHI.NPPN ---
Subjective Interval History Seen earlier in the day in [facility] [place]. Mental status slightly better, was sitting on a chair, eating breakfast. Objective Data Data 04/27/17 04/28/17 19:00 07:00 Intake Total 240 ml Balance 240 ml Intake Oral 240 ml Vital Signs Date Time Temp Pulse Resp B/P (MAP) Pulse Ox O2 Delivery O2 Flow Rate FiO2 04/27/17 18:06 97.2 78 18 130/57 (81) 04/27/17 17:16 98.2 60 17 131/60 (83) 97 Physical Exam General Appearance: Well Developed, No Acute Distress Throat Throat Exam: Oral Mucosa [place] & Moist Pulmonary Resp Exam: Clear Bilaterally Cardiology CV Exam: Regular, Normal Sinus Rhythm Gastrointestinal/Abdomen GI Exam: Soft, Non-Tender, Bowel Sounds Present Musculoskeletal MS Exam: Joints Intact Assessment/Plan Problem List: (1) ESRD (end stage renal disease) ICD Codes: N18.6 - End-stage renal disease Status: Chronic Plan: continue dialysis MWF. Monitor fluid and electrolytes. (2) Psychosis ICD Codes: F29 - Unspecified psychosis not due to a substance or known physiological condition Plan: Seen by psychiatry, later was transferred to their service. (3) Septicemia due to Staphylococcus aureus ICD Codes: A41.01 - Sepsis due to Methicillin susceptible Staphylococcus aureus Status: Acute Plan: On Cefazolin which should be continued. Louis Fagan MD Apr 27, 2017 20:17
[2017-04-27] MEDS ORDERED: diphenhydrAMINE HCL 25 MG CAP PO PRN (20:30)
[2017-04-27] MEDS ORDERED: ONDANSETRON HCL 4 MG/2 ML VIAL IV PUSH PRN (20:30)
[2017-04-27] MEDS ORDERED: MANNITOL 12.5 GM/50 ML VIAL IV PRN (20:30)
[2017-04-27] MEDS ORDERED: GENTAMICIN SULFATE (DIALYSIS USE ONLY) 20 MG/2 ML VIAL OTHER PRN (20:30)
[2017-04-27] MEDS ORDERED: ALBUMIN 25% INJ 100 ML IV PRN (20:30)
[2017-04-27] MEDS ORDERED: HEPARIN SODIUM - IV 10,000 UNITS/10 ML VIAL IV FLUSH PRN (20:30)
[2017-04-27] MEDS ORDERED: NITROGLYCERIN 0.4 MG SL 25 TABS/BTL SL PRN (20:30)
[2017-04-27] MEDS ORDERED: cloNIDine HCL 0.1 MG TAB PO PRN (20:30)
[2017-04-27] MEDS ORDERED: HEPARIN SODIUM - IV 10,000 UNITS/10 ML VIAL PRN (20:30)
[2017-04-27] MEDS ORDERED: SODIUM CHLORIDE 0.9% FLUSH 10 ML FLUSH IV FLUSH PRN (20:30)
[2017-04-27] MEDS ORDERED: ACETAMINOPHEN 325 MG TAB PO PRN (20:30)
[2017-04-27] MEDS: HEPARIN SODIUM - SQ 10,000 UNITS/ML VIAL SQ SCH (20:58)
[2017-04-27] MEDS: INSULIN DETEMIR 100 UNITS/ML VIAL SQ SCH (20:58)
[2017-04-27] MEDS: ceFAZolin 1,000 MG/NS 100 ML IV SCH ×2 (22:03)
[2017-04-27] MEDS: ACETAMINOPHEN 325 MG TAB PO PRN (23:01)
[2017-04-28] MEDS: LORazepam 1 MG TAB PO PRN ×2 (02:30→17:57)
[2017-04-28 05:44] VITALS: BP 104/53; PULSE 55; RESP 16; TEMP 97.5; O2SAT 96
[2017-04-28] MEDS: INSULIN ASPART SUPPLEMENTAL SCALE SQ SCH ×4 (08:00→21:00)
[2017-04-28] MEDS: HEPARIN SODIUM - SQ 10,000 UNITS/ML VIAL SQ SCH ×2 (09:00→23:08)
[2017-04-28] MEDS: AMIODARONE 200 MG TAB PO SCH (09:17)
[2017-04-28] MEDS: DILTIAZEM-CD 180 MG CAP ER PO SCH (09:17)
[2017-04-28] MEDS: ceFAZolin 1,000 MG/NS 100 ML IV SCH ×4 (09:18→23:06)
[2017-04-28 09:37] LABS: ANION GAP 13 MEQ/L (5-15); BICARBONATE 27.7 MEQ/L (21.0-32.0); BLOOD UREA NITROGEN 62 MG/DL (7-18); CHLORIDE 89 MEQ/L (98-107); GLOMERULAR FILTRATION RATE 6 ML/MIN (>89); LDL CHOLESTEROL 64 MG/DL (0-99); POTASSIUM 3.6 MEQ/L (3.5-5.1); SODIUM (NA) 130 MEQ/L (136-145)
--- NOTE | 2017-04-28 09:50 | HHI.NPPN ---
Subjective Renal Failure: Chronic, End Stage Renal Disease Interval History She is much more alert, aware. Behavior has improved. Due for dialysis today. (Petrona Sexton) Objective Data Data Vital Signs Date Time Temp Pulse Resp B/P (MAP) Pulse Ox O2 Delivery O2 Flow Rate FiO2 04/28/17 05:44 97.5 55 16 104/53 (70) 96 04/27/17 18:06 97.2 78 18 130/57 (81) 04/27/17 17:16 98.2 60 17 131/60 (83) 97 (Petrona Sexton) -: 04/28/17 0834 Physical Exam General Appearance: Well Developed, No Acute Distress, Comfortable (Petrona Sexton) Throat Throat Exam: Oral Mucosa [place] & Moist (Petrona Sexton) Pulmonary Resp Exam: Clear Bilaterally, Breath Sounds Equal (Petrona Sexton) Cardiology CV Exam: Good Perfusion, Irregular (Petrona Sexton) Gastrointestinal/Abdomen GI Exam: Soft, Non-Tender, Bowel Sounds Present (Petrona Sexton) Musculoskeletal MS Exam: Joints Intact, Normal Tone (Petrona Sexton) Integumentary Skin Exam: Clear, Warm, Dry, Intact (Petrona Sexton) Extremeties Extremities Exam: No Edema, Pedal Pulses Palpable (Petrona Sexton) Neurologic Neuro Exam: Alert, Awake, Oriented, Speech Clear, Moving All Extremities (Petrona Sexton) Psychiatric Psych Exam: Appropriate Responses (Petrona Sexton) Assessment/Plan Discussed Condition With: Patient Assessment Summary: [place] Hyperparathyroid, End Stage Renal Disease Electrolyte Assessment: Hyponatremia Problem List: (1) ESRD (end stage renal disease) ICD Codes: N18.6 - End-stage renal disease Status: Chronic Plan: continue dialysis MWF, she is due today Monitor fluid and electrolytes intermittently. Avoid IVF. High protein diet encouraged. AVF left arm. (2) Psychosis ICD Codes: F29 - Unspecified psychosis not due to a substance or known physiological condition Plan: Transferred to psych floor Has PRN medications available (3) Septicemia due to Staphylococcus aureus ICD Codes: A41.01 - Sepsis due to Methicillin susceptible Staphylococcus aureus Status: Acute Plan: On Cefazolin ID has evaluated Repeat blood culture from 04/26 pending She had MSSA from unknown source; monitor clinically (4) Afib ICD Codes: I48.91 - Unspecified atrial fibrillation Plan: Rate controlled On Cardizem and Coumadin monitor INR (5) Metabolic bone disease ICD Codes: E88.9 - Metabolic bone disease; M90.80 - Osteopathy in diseases classified elsewhere, unspecified site Status: Acute Plan: Resume Phoslo with meals Intermittently obtain phosphorus level (Petrona Sexton) Plan patient was seen and examined. Agree with above assessment and plan. Transferred to psychiatry. Her condition appears to have improved. (Louis Fagan MD) Petrona Sexton Apr 28, 2017 09:49 Louis Fagan MD Apr 28, 2017 14:35
--- NOTE | 2017-04-28 11:23 | HHI.PR ---
Subjective Remarks H&P from 04/29 reviewed and updated to reflect events which include those documented on progress note dated 04/27 by me Patient seen and evaluated in follow-up for psychosis which appears to be dramatically improved Patient with bacteremia and acceptable of diagnosis and plan of treatment although still not agreeable to DANN due to previous issues with ventilation Patient of more coherent Objective Vitals Vital Signs Date Time Temp Pulse Resp B/P (MAP) Pulse Ox O2 Delivery O2 Flow Rate FiO2 04/28/17 05:44 97.5 55 16 104/53 (70) 96 04/27/17 18:06 97.2 78 18 130/57 (81) 04/27/17 17:16 98.2 60 17 131/60 (83) 97 I/O 04/27/17 04/27/17 04/27/17 04/28/17 04/28/17 04/28/17 07:00 15:00 23:00 07:00 15:00 23:00 Intake Total 240 ml 580 ml 240 ml Balance 240 ml 580 ml 240 ml Intake Oral 240 ml 480 ml 240 ml IV Total 100 ml Result Diagram: 04/28/17 0834 Objective Remarks GENERAL: This is a well-nourished, well-developed patient, in no apparent distress. CARDIOVASCULAR: Regular rate and rhythm without murmurs, gallops, or rubs. RESPIRATORY: Clear to auscultation. Breath sounds equal bilaterally. No wheezes , rales, or rhonchi. GASTROINTESTINAL: Abdomen soft, non-tender, nondistended. Normal active bowel sounds MUSCULOSKELETAL: Left graft, Extremities without clubbing, cyanosis, or edema. NEURO: Alert & Oriented x4 to person, place, time, situation. Moves all ext x4 A/P Problem List: (1) Afib ICD Code: I48.91 - Unspecified atrial fibrillation Plan: previously controlled on PO metoprolol at home, will continue this as she is bradycardic and hypotensive on cardizem follow electrolytes Continue warfarin and follow INR (2) Septicemia due to Staphylococcus aureus ICD Code: A41.01 - Sepsis due to Methicillin susceptible Staphylococcus aureus Status: Acute Plan: ID reconsulted MSSA, source unknown cont cefazolin IV Await final results of repeat BC 03/26 (3) ESRD (end stage renal disease) ICD Code: N18.6 - End-stage renal disease Status: Chronic Plan: HD Per renal MWF Doing well irma (4) Psychosis ICD Code: F29 - Unspecified psychosis not due to a substance or known physiological condition Plan: transferred to [facility] due to various psychotic outbursts appears stable and has good recall and explanation of events, although her behavioral response was undeniably quite inappropriate (5) DM2 (diabetes mellitus, type 2) ICD Code: E11.9 - Type 2 diabetes mellitus without complications Plan: levemir, sliding scale follow po intake Assessment and Plan dvt ppx heparin q12, until warfarin therapeutic Katarzyna Lira MD Apr 28, 2017 11:23
[2017-04-28] MEDS: CALCIUM ACETATE 667 MG CAP PO SCH ×2 (12:16→17:57)
[2017-04-28 12:38] LABS: INTERNATIONAL NORMALIZED RATIO 1.2 RATIO
--- NOTE | 2017-04-28 15:14 | HHI.IDPN ---
Note Infectious Disease Note ID coverage. Patient was seen previously for Staph sepsis. Patient continues to be cooperative. Pleasant. Very jovial. Appropriate interaction. No distress. Afebrile. Patient and son refused DANN for which she was transferred for HPO. Repeat blood culture pending. Negative x 2 days. Blood culture 04/22 has MSSA. Antibiotics IV Cefazolin Lines Peripheral Past Medical History ESRD Allergies: Coded Allergies: azithromycin (Verified Allergy, Severe, 04/19/17) vancomycin (Verified Allergy, Severe, PT VERIFIED RASH WITH VANCOMYCIN., 04/19/17) Objective Vital Signs Date Time Temp Pulse Resp B/P (MAP) Pulse Ox O2 Delivery O2 Flow Rate FiO2 04/27/17 10:00 75 04/27/17 08:48 97 21 04/27/17 08:00 98.1 73 18 165/74 (104) 95 04/27/17 08:00 73 04/27/17 07:00 98 Room Air 04/27/17 06:00 78 04/27/17 04:00 76 04/27/17 04:00 98.1 76 16 131/63 (85) 97 04/27/17 02:00 79 04/27/17 00:00 123 04/27/17 00:00 98.3 123 18 108/60 (76) 97 04/26/17 22:00 126 04/26/17 20:00 86 04/26/17 20:00 98.5 86 16 135/104 (114) 97 04/26/17 19:00 97 Room Air 04/26/17 16:00 69 04/26/17 14:00 68 04/26/17 13:27 99 21 04/26/17 12:00 64 04/26/17 12:00 64 164/74 (104) Microbiology Date/Time Source Procedure Growth Status 04/26/17 14:36 Blood Other Aerobic Blood Culture - Preliminary NO GROWTH IN 2 DAYS Resulted 04/26/17 14:36 Blood Other Anaerobic Blood Culture - Preliminary NO GROWTH IN 2 DAYS Resulted 04/26/17 14:30 Blood Other Aerobic Blood Culture - Preliminary NO GROWTH IN 2 DAYS Resulted 04/26/17 14:30 Blood Other Anaerobic Blood Culture - Preliminary NO GROWTH IN 2 DAYS Resulted PHYSICAL EXAM: HEENT: EOMI, No icterus. NECK: Supple. No swelling. No JVD. LUNGS: Breath sounds clear. CARDIAC: Nl S1S2. Regular rate and rhythm. No murmur. ABDOMEN: Soft, non tender. EXT: [facility] [place] AVF without erythema. SKIN: No rash. multiple chronic dark macular spot lesions scattered over arms and legs. NEURO. Non focal. PSYCH: Calm and cooperative. Diagnosis: Septicemia due to Staphylococcus aureus. No clear source. ? endocarditis. Patient refused DANN. ESRD (end stage renal disease) on dialysis via AV fistula at [facility] [place]. Stable. Recommend: If the blood culture remain negative continue IV Cefazolin current dosing for 10 days duration post negative blood culture then stop antibiotics and do repeat blood culture approximately 48 hours later with dialysis. If the blood culture is positive again I would treat with prolonged course of Cefazolin. Since she refused DANN it is difficult to determine if she has endocarditis. Monitor clinical status. Stone Farmer MD Apr 28, 2017 15:14
--- NOTE | 2017-04-28 15:40 | HHI.HP ---
Provisional Diagnosis Admission Date Apr 27, 2017 at 12:53 [place] I. Delirium; rule out unspecified psychotic disorder Certification of Person's Competence To Provide Express and Informed Consent I have personally examined Malaika Bowers , a person being served at [facility] on, Apr 28, 2017 15:33. Express and informed consent means consent voluntarily given in writing, by a competent person, after sufficient explanation and disclosure of the subject matter involved to enable the person to make a knowing and willful decision without any element of force, fraud, deceit, duress, or other form of constraint or coercion. This person is 18 years of age or older, is not now known to be incompetent to consent to treatment with a guardian advocate, and does not have a health care surrogate or proxy currently making medical treatment decisions. I have found this person to be one of the following: [] Competent to provide express and informed consent, as defined above, for voluntary admission to this facility and is competent to provide express and informed consent for treatment. He/she has the consistent capacity to make well reasoned, willful, and knowing decisions concerning his or her medical or mental health treatment. The person fully and consistently understands the purpose of the admission for examination/placement and is fully capable of personally exercising all rights assured [place] [x] Incompetent to provide express and informed consent to voluntary admission, and this is incompetent to provide express and informed consent to treatment. The person must be transferred to involuntary status and a petition for a guardian advocate filed with the Circuit Court. [] Refusing to provide express and informed consent to voluntary admission but is competent to provide express and informed consent for treatment. The person must be discharged or transferred to involuntary status. Form shall be completed within 24 hours of a person's arrival at the receiving facility and filed in the clinical record of each person: 1. Admitted on a voluntary basis 2. Permitted to provide express and informed consent to his/her own treatment 3. Allowed to transfer from involuntary to voluntary status 4. Prior to permitting a person to consent to his or her own treatment after having been previously found incompetent to consent to treatment. History of Present Illness Capacity: Has Capacity HPI Patient is a 61-year-old [place] woman, domiciled with her granddaughter [place]ust [place], single, retired supported on disability income in residential funds, no previous psychiatric history, no previous psychiatric hospitalizations, no previous suicide attempt or self-injurious behavior, medical history of end-stage renal disease, hypertension, who initially presented to the hospital due to multiple pain sites, was admitted to the ICU due to hypertensive emergency in the context of requiring dialysis and was noted to have fluctuating mental status for possible delirium (agitation, disorganization, visual hallucinations). Patient was seen by psychiatric it consultant and noted to have clinical signs of catatonia which patient was started on Ativan challenge responded to. On reevaluation, patient now noted to be tangential, disorganized, internally preoccupied with fluctuation of consciousness and unable to express understanding of the acuity of her medical presentation at that moment. Patient continued to be noted to be very talkative , rapid speech, expansive affect, requiring restraints in the ICU along with emergency treatment orders due to aggression which once medically stable was able to be transferred to the inpatient psychiatry for further evaluation and management. Patient seen today with nurse, sitting in hospital bed be visited by family was interviewed alone. Patient noted to have increased rate of speech but not pressured, circumstantial with some disorganization at times but mostly linear, labile affect with occasional inappropriate laughing but cooperative with interview. Patient states that she was put under [place] act because of her recent behavior which she describes as they picked a fight with me and now is out of character after she states it only asked for a glass of water. Patient appears to be unclear and unable to recall events surrounding her recent suspected delirium while in ICU. noted to murmur only moments during the hospitalization and noted to have difficulty maintaining train of thought. Patient at this time reports that she does not want to be in this unit, stating that she did not belong here. Patient was unable to express how her current mood is denies any SI or HI, perceptual disturbances or delusions at this time. Patient was noted to be interactive with family when they visited earlier as well as appropriately interactive with staff. Discussion about continuing recommended antipsychotic medication due to her recent symptoms was reviewed which patient continues to refuse. Psychiatric family history: No family psychiatric history Past psychiatric history: Denies previous psychiatric diagnoses, denies previous psychiatric hospitalizations, denies previous suicide attempt or self- injurious behavior. Previous psychiatric medications: None, although reports having been prescribed Cymbalta which she refused to take at the time of her diagnosis of renal failure. Substance use disorder: Reports remote history of tobacco, marijuana, cocaine, speedball, heroine use years ago. Patient denies use any other illegal substance recently or currently. Past medical history: Hypertension, ESRD (requiring dialysis 3 times per week) Allergies: Azithromycin, vancomycin Social history: born and raised in [facility], she is single, domiciled in [place] with her granddaughter, has 2 adult children, supported by residential benefits and disability income. 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 Patient denies use any other illegal substance recently or currently. Past Family Social History Coded Allergies: azithromycin (Verified Allergy, Severe, 04/19/17) vancomycin (Verified Allergy, Severe, PT VERIFIED RASH WITH VANCOMYCIN., 04/19/17) Reported Medications Calcium Acetate (Phosphate Binder) (Calcium Acetate (Phosphate Binder)) 667 Mg Tab, 667 MG PO TIDAC for Hyperphosphatemia, #90 TAB 0 Refills 04/27/17 Sevelamer Carbonate (Renvela) 800 Mg Tab, 800 MG PO TIDAC for Control phosphorous levels, #90 TAB 0 Refills 04/27/17 Hydroxyzine HCl (Hydroxyzine HCl) 25 Mg Tab, 25 MG PO TID Y for ALLERGIES, TAB 0 Refills 08/05/16 Warfarin (Warfarin) 7.5 Mg Tab, 7.5 MG PO DAILY for Blood Clot Prevention, #30 TAB 0 Refills 08/05/16 Metoprolol Succinate ER 24 HR (Metoprolol Succinate ER 24 HR) 50 Mg Tab, 50 MG PO DAILY, #30 TAB 0 Refills 08/05/16 Insulin Glargine Inj (Lantus Inj) 1,000 Unit/10 Ml Vial, 16 UNITS SQ HS for Blood Sugar Management, VIAL 0 Refills 08/05/16 Current Medications Medications (Trade) Dose Ordered Sig/[place] Route Start Time Stop Time Status Last Admin (Atarax) 25 mg Q8H PRN PO 04/27/17 14:30 04/27/17 22:11 (Levemir Inj) 16 units HS SQ 04/27/17 21:00 04/27/17 20:58 (Coumadin) 7.5 mg DAILY@1600 PO 04/27/17 16:00 04/27/17 18:08 (Ativan) 1 mg Q6H PRN PO 04/27/17 14:30 04/28/17 02:30 (Ativan Inj) 1 mg Q6H PRN IM 04/27/17 14:30 (Tylenol) 650 mg Q4H PRN PO 04/27/17 14:15 04/27/17 23:01 (Mag-Al Plus Susp Liq) 30 ml Q6H PRN PO 04/27/17 14:15 (D50w (Vial) Inj) 50 ml UNSCH PRN IV PUSH 04/27/17 14:15 (Glucagon Inj) 1 mg UNSCH PRN OTHER 04/27/17 14:15 (NovoLOG SUPPLEMENTAL SCALE) 1 ACHS SLIDING SCALE SQ 04/27/17 17:00 04/27/17 21:06 (Cordarone) 400 mg DAILY PO 04/27/17 18:00 04/28/17 09:17 (Heparin Inj) 5,000 units Q12H SQ 04/27/17 21:00 04/27/17 20:58 Cefazolin Sodium 1000 mg/Sodium Chloride 100 ml @ 200 mls/hr Q12H IV 04/27/17 21:00 04/28/17 09:18 Sodium Chloride 1,000 ml @ 0 mls/hr Q0M PRN OTHER 04/27/17 20:17 (Heparin Inj) 8,000 units UNSCH PRN IV FLUSH 04/27/17 20:30 Sodium Chloride 1,000 ml @ 200 mls/hr Q5H PRN IV 04/27/17 20:17 Sodium Chloride 1,000 ml @ 0 mls/hr Q0M PRN OTHER 04/27/17 20:17 (Mannitol Inj) 12.5 gm UNSCH PRN IV 04/27/17 20:30 Albumin Human 100 ml @ 60 mls/hr UNSCH PRN IV 04/27/17 20:30 (NS Flush) 5 ml UNSCH PRN IV FLUSH 04/27/17 20:30 (Heparin Inj) UNSCH PRN .XX 04/27/17 20:30 (Gentamicin (Dialysis) Inj) 20 mg UNSCH PRN OTHER 04/27/17 20:30 (Zofran Inj) 4 mg UNSCH PRN IV PUSH 04/27/17 20:30 (Tylenol) 650 mg UNSCH PRN PO 04/27/17 20:30 (Benadryl) 25 mg UNSCH PRN PO 04/27/17 20:30 (Nitrostat Sl) 0.4 mg UNSCH PRN SL 04/27/17 20:30 (Catapres) 0.1 mg UNSCH PRN PO 04/27/17 20:30 (Epogen Inj) 5,000 units UNSCH PRN IV PUSH 04/27/17 20:30 (Gelfoam 12 Mm/7 Mm Top) 1 foam UNSCH PRN TOP 04/27/17 20:30 (Phoslo) 667 mg TID PO 04/28/17 13:00 (Toprol Xl) 50 mg DAILY PO 04/29/17 09:00 (Abilify) 2 mg BID PO 04/28/17 21:00 Family Psych History No family psychiatric history Social History born and raised in [facility], she is single, domiciled in [place] with her granddaughter, has 2 adult children, supported by residential benefits and disability income. Highest education [employer] studies Patient's Strengths (min. 2) Verbal and communicative Physical Exam Patient not noted to be in acute distress, no gross motor abnormalities, noted to have a fistula and left upper extremity, no tremors or EPS, no noted psychomotor retardation or agitation. Vital Signs Vital Signs Date Time Temp Pulse Resp B/P (MAP) Pulse Ox O2 Delivery O2 Flow Rate FiO2 04/28/17 05:44 97.5 55 16 104/53 (70) 96 I/O 04/28/17 04/28/17 04/29/17 08:00 16:00 00:00 Intake Total 240 ml Balance 240 ml Lab Results Labs reviewed Test 04/28/17 08:34 04/28/17 11:53 Blood Urea Nitrogen 62 MG/DL Creatinine 7.82 MG/DL Random Glucose 84 MG/DL Calcium Level 8.4 MG/DL Sodium Level 130 MEQ/L Potassium Level 3.6 MEQ/L Chloride Level 89 MEQ/L Carbon Dioxide Level 27.7 MEQ/L Anion Gap 13 MEQ/L Estimat Glomerular Filtration Rate 6 ML/MIN Triglycerides Level 236 MG/DL Cholesterol Level 129 MG/DL LDL Cholesterol 64 MG/DL HDL Cholesterol 18.0 MG/DL Cholesterol/HDL Ratio 7.16 RATIO Prothrombin Time 13.0 SEC Prothromb Time International Ratio 1.2 RATIO Mental Status Examination Appearance: Disheveled (slightly) Consciousness: Alert Orientation: Person, Place Speech: Other (increased rate) Language: Adequate Fund of Knowledge: Adequate Attention and Concentration: Easily Distracted Memory: Impaired (events surrounding her recent admission) Mood: Anxious Affect: Labile, Other (laughing inappropriately at times) Thought Process & Associations: Circumstantial, Disorganized (at times) Thought Content: Appropriate Hallucination Type: None Delusion Type: None Suicidal Ideation: No Suicidal Plan: No Suicidal Intention: No Homicidal Ideation: No Homicidal Plan: No Homicidal Intention: No Insight: Poor Judgment: Poor Assessment & Plan Problem List: (1) Delirium due to another medical condition ICD Codes: F05 - Delirium due to known physiological condition (2) Unspecified psychosis ICD Codes: F29 - Unspecified psychosis not due to a substance or known physiological condition Assessment & Plan Estimated LOS: 3-5 days. Patient is a 61-year-old woman with no previous psychiatric history, with past medical history of hypertension, end- stage renal disease was admitted to the inpatient psychiatry unit after recent ICU admission due to altered mental status and likely delirium. Patient at this time appears to have increased rate of speech, disorganized at times but mostly linear thought process, denies any perceptual disturbances or delusions, but has unclear recollection of recent events in the ICU, noted to be somewhat labile with inappropriate laughing at times but not noted to be aggressive or combative now. We'll continue Abilify 2 mg by mouth twice a day for recent psychosis. We'll continue to monitor patient's symptoms which appear to be likely related to recent delirium that may continue to resolve. We'll continue to monitor mood and behavior. Discharge planning in progress Discharge Planning Patient to return back to her residence once psychiatrically cleared Dheeraj Rubin MD Apr 28, 2017 15:40
[2017-04-28 16:47] LABS: HEMOGLOBIN A1a 1.5 %; HEMOGLOBIN Ao 79.8 %; HEMOGLOBIN F 1.5 %; HEMOGLOBIN LA1C 2.4 %
[2017-04-28] MEDS: WARFARIN SOD 7.5 MG TAB PO SCH (17:52)
[2017-04-28] MEDS: ACETAMINOPHEN 325 MG TAB PO PRN (18:04)
[2017-04-28 18:36] VITALS: BP 123/71; PULSE 66; RESP 17; TEMP 98.2; O2SAT 97
[2017-04-28 19:42] VITALS: O2SAT 97
[2017-04-28] MEDS: ARIPiprazole 2 MG TAB PO SCH (23:07)
[2017-04-28] MEDS: INSULIN DETEMIR 100 UNITS/ML VIAL SQ SCH (23:08)
[2017-04-29 05:45] VITALS: BP 135/63; PULSE 72; RESP 16; TEMP 98.1; O2SAT 98
[2017-04-29] MEDS: INSULIN ASPART SUPPLEMENTAL SCALE SQ SCH ×4 (08:00→21:00)
[2017-04-29] MEDS: METOPROLOL SUCCINATE 50 MG EXTENDED RELEASE TAB PO SCH (08:38)
[2017-04-29] MEDS: ceFAZolin 1,000 MG/NS 100 ML IV SCH ×4 (08:48→21:05)
[2017-04-29] MEDS: AMIODARONE 200 MG TAB PO SCH (09:00)
[2017-04-29] MEDS: HEPARIN SODIUM - SQ 10,000 UNITS/ML VIAL SQ SCH ×3 (09:00→21:05)
[2017-04-29] MEDS: ARIPiprazole 2 MG TAB PO SCH ×3 (09:00→21:04)
[2017-04-29] MEDS: CALCIUM ACETATE 667 MG CAP PO SCH ×3 (09:24→18:07)
--- NOTE | 2017-04-29 12:07 | HHI.NPPN ---
Subjective Renal Failure: Chronic, End Stage Renal Disease Additional Remarks No acute complaints. Refused HD earlier today because she "was not ready" for HD. However is agreeable to do HD now. Objective Data Data 04/29/17 04/30/17 19:00 07:00 Intake Total 720 ml Balance 720 ml Intake Oral 720 ml Vital Signs Date Time Temp Pulse Resp B/P (MAP) Pulse Ox O2 Delivery O2 Flow Rate FiO2 04/29/17 05:45 98.1 72 16 135/63 (87) 98 04/28/17 19:42 97 04/28/17 18:36 98.2 66 17 123/71 (88) 97 -: 04/28/17 0834 Physical Exam General Appearance: Well Developed, No Acute Distress, Comfortable Throat Throat Exam: Oral Mucosa Em[place] & Moist Pulmonary Resp Exam: Clear Bilaterally, Breath Sounds Equal Cardiology CV Exam: Good Perfusion, Irregular Gastrointestinal/Abdomen GI Exam: Soft, Non-Tender, Bowel Sounds Present Musculoskeletal MS Exam: Joints Intact, Normal Tone Integumentary Skin Exam: Clear, Warm, Dry, Intact Extremeties Extremities Exam: No Edema, Pedal Pulses Palpable Neurologic Neuro Exam: Alert, Awake, Oriented, Speech Clear, Moving All Extremities Psychiatric Psych Exam: Appropriate Responses Assessment/Plan Discussed Condition With: Patient Assessment Summary: [place] Hyperparathyroid, End Stage Renal Disease Electrolyte Assessment: Hyponatremia Problem List: (1) ESRD (end stage renal disease) ICD Codes: N18.6 - End-stage renal disease Status: Chronic Plan: Outpatient MWF HD. Refused HD yesterday and earlier today - however is agreeable to it now (did not feel she was "ready" for HD when called for treatment). Monitor fluid and electrolytes intermittently. Avoid IVF. High protein diet encouraged. AVF left arm. (2) Psychosis ICD Codes: F29 - Unspecified psychosis not due to a substance or known physiological condition Plan: Transferred to psych floor Has PRN medications available (3) Septicemia due to Staphylococcus aureus ICD Codes: A41.01 - Sepsis due to Methicillin susceptible Staphylococcus aureus Status: Acute Plan: On Cefazolin ID has evaluated Repeat blood culture from 04/26 pending She had MSSA from unknown source; monitor clinically - afebrile now. (4) Afib ICD Codes: I48.91 - Unspecified atrial fibrillation Plan: Rate controlled On Cardizem and Coumadin monitor INR (5) Metabolic bone disease ICD Codes: E88.9 - Metabolic bone disease; M90.80 - Osteopathy in diseases classified elsewhere, unspecified site Status: Acute Plan: Resume Phoslo with meals Intermittently obtain phosphorus level Ike Mayfield MD Apr 29, 2017 12:07
--- NOTE | 2017-04-29 13:49 | HHI.PR ---
Subjective Remarks Patient seen and hemodialysis suite. No new complaints. Patient still somewhat defined to medical treatment plans. Initially she refused hemodialysis but was then more cooperative. She reports improved bowel function. She feels otherwise well Plan discussed with RN Objective Vitals Vital Signs Date Time Temp Pulse Resp B/P (MAP) Pulse Ox O2 Delivery O2 Flow Rate FiO2 04/29/17 05:45 98.1 72 16 135/63 (87) 98 04/28/17 19:42 97 04/28/17 18:36 98.2 66 17 123/71 (88) 97 I/O 04/28/17 04/28/17 04/28/17 04/29/17 04/29/17 04/29/17 07:00 15:00 23:00 07:00 15:00 23:00 Intake Total 240 ml 60 ml 720 ml Output Total 1 ml Balance 240 ml 59 ml 720 ml Intake Oral 240 ml 60 ml 720 ml Output Stool Total 1 ml Result Diagram: 04/28/17 0834 Objective Remarks In hemodialysis. GENERAL: This is a well-nourished, well-developed patient, in no apparent distress. CARDIOVASCULAR: Regular rate and rhythm without murmurs, gallops, or rubs. RESPIRATORY: Clear to auscultation. Breath sounds equal bilaterally. No wheezes , rales, or rhonchi. GASTROINTESTINAL: Abdomen soft, non-tender, nondistended. Normal active bowel sounds MUSCULOSKELETAL: Left graft, Extremities without clubbing, cyanosis, or edema. NEURO: Alert & Oriented x4 to person, place, time, situation. Moves all ext x4 A/P Problem List: (1) Afib ICD Code: I48.91 - Unspecified atrial fibrillation Plan: Controlled on metoprolol follow electrolytes Continue warfarin and follow INR (2) Septicemia due to Staphylococcus aureus ICD Code: A41.01 - Sepsis due to Methicillin susceptible Staphylococcus aureus Status: Acute Plan: ID following MSSA, source unknown cont cefazolin IV Await final results of repeat BC 03/26 (3) ESRD (end stage renal disease) ICD Code: N18.6 - End-stage renal disease Status: Chronic (4) Psychosis ICD Code: F29 - Unspecified psychosis not due to a substance or known physiological condition Plan: transferred to [facility] due to various psychotic outbursts appears stabilizing although she seems alert and oriented she does appear to have underlying defiant tendencies (5) DM2 (diabetes mellitus, type 2) ICD Code: E11.9 - Type 2 diabetes mellitus without complications Plan: levemir, sliding scale follow po intake Assessment and Plan dvt ppx heparin q12, until warfarin therapeutic Discharge Planning Likely to MedSurg when cleared by Katarzyna Acevedo MD Apr 29, 2017 13:49
[2017-04-29] MEDS: EPOETIN ALFA 10,000 UNITS/ML VIAL IV PUSH PRN (15:39)
[2017-04-29] MEDS: GELATIN 12 MM/7 MM FOAM TOP PRN (15:39)
[2017-04-29 17:52] VITALS: BP 117/58; PULSE 70; RESP 16; TEMP 97.7; O2SAT 93
[2017-04-29] MEDS: WARFARIN SOD 7.5 MG TAB PO SCH (18:07)
--- NOTE | 2017-04-29 19:04 | HHI.PYPN ---
Subjective Remarks Pt seen and discussed with staff. Pt refused morning dose of abilify. She is paranoid and states that she is going to see a sales operations Deck to [facility] and get them right. She denies SI/HI or previous psychiatric treatment. No SI/HI Mental Status Examination Appearance: Disheveled (slightly) Consciousness: Alert Orientation: Person, Place Speech: Other (increased rate) Language: Adequate Fund of Knowledge: Adequate Attention and Concentration: Easily Distracted Memory: Impaired (events surrounding her recent admission) Mood: Anxious Affect: Labile, Other (laughing inappropriately at times) Thought Process & Associations: Circumstantial, Disorganized (at times) Thought Content: Delusional Hallucination Type: None Delusion Type: None, Paranoid Suicidal Ideation: No Suicidal Plan: No Suicidal Intention: No Homicidal Ideation: No Homicidal Plan: No Homicidal Intention: No Insight: Poor Judgment: Poor Results Vitals/IOs Vital Signs Date Time Temp Pulse Resp B/P (MAP) Pulse Ox O2 Delivery O2 Flow Rate FiO2 04/29/17 17:52 97.7 70 16 117/58 (77) 93 Intake and Output 04/29/17 04/29/17 04/30/17 08:00 16:00 00:00 Intake Total 360 ml 360 ml 1440 ml Output Total 3500 ml Balance 360 ml 360 ml -2060 ml Assessment & Plan Problem List: (1) Delirium due to another medical condition ICD Codes: F05 - Delirium due to known physiological condition (2) Unspecified psychosis ICD Codes: F29 - Unspecified psychosis not due to a substance or known physiological condition Assessment & Plan Continue current tx plan. Estimated LOS: days Justification for Cont. Inpt. impairments in reality testing Victoria Rice MD Apr 29, 2017 19:04
[2017-04-29] MEDS: INSULIN DETEMIR 100 UNITS/ML VIAL SQ SCH (21:05)
[2017-04-30 06:34] VITALS: BP 152/67; PULSE 66; RESP 16; TEMP 98.1; O2SAT 94
[2017-04-30] MEDS: INSULIN ASPART SUPPLEMENTAL SCALE SQ SCH ×4 (06:34→20:59)
--- NOTE | 2017-04-30 08:18 | HHI.PR ---
Subjective Remarks Patient seen in room. Calm. Complaining of dyspepsia and requesting her proton pump inhibitor Objective Vitals Vital Signs Date Time Temp Pulse Resp B/P (MAP) Pulse Ox O2 Delivery O2 Flow Rate FiO2 04/30/17 06:34 98.1 66 16 152/67 (95) 94 04/29/17 17:52 97.7 70 16 117/58 (77) 93 I/O 04/29/17 04/29/17 04/29/17 04/30/17 04/30/17 04/30/17 07:00 15:00 23:00 07:00 15:00 23:00 Intake Total 720 ml 1920 ml 360 ml Output Total 3500 ml Balance 720 ml -1580 ml 360 ml Intake Oral 720 ml 1920 ml 360 ml Hemodialysis 3500 ml # Voids 0 2 Result Diagram: 04/28/17 0834 Objective Remarks GENERAL: This is a well-nourished, well-developed patient, in no apparent distress. CARDIOVASCULAR: Regular rate and rhythm without murmurs, gallops, or rubs. RESPIRATORY: Clear to auscultation. Breath sounds equal bilaterally. No wheezes , rales, or rhonchi. GASTROINTESTINAL: Abdomen soft, non-tender, nondistended. Normal active bowel sounds MUSCULOSKELETAL: Left graft, Extremities without clubbing, cyanosis, or edema. NEURO: Alert & Oriented x4 to person, place, time, situation. Moves all ext x4 A/P Problem List: (1) Afib ICD Code: I48.91 - Unspecified atrial fibrillation Plan: Controlled on metoprolol/amiodarone follow electrolytes Continue warfarin and follow INR (2) Septicemia due to Staphylococcus aureus ICD Code: A41.01 - Sepsis due to Methicillin susceptible Staphylococcus aureus Status: Acute Plan: ID following MSSA, source unknown Patient will need to cont cefazolin IV for 10 days after the date of last set of blood cultures (:15) as long as they remain negative Will repeat blood cultures 48 hours after DC antibiotics (05/06) and if they returned positive patient will need prolonged course of antibiotics. Patient did not consent to DANN and it is difficult to diagnose endocarditis (3) ESRD (end stage renal disease) ICD Code: N18.6 - End-stage renal disease Status: Chronic Plan: HD per renal M/W/F renvela/calcium (4) Psychosis ICD Code: F29 - Unspecified psychosis not due to a substance or known physiological condition Plan: transferred to [facility] due to various psychotic outbursts appears stabilizing although she seems alert and oriented she does appear to have underlying defiant tendencies (5) DM2 (diabetes mellitus, type 2) ICD Code: E11.9 - Type 2 diabetes mellitus without complications Plan: controlled levemir, sliding scale follow po intake (6) Dyspepsia ICD Code: R10.13 - Epigastric pain Plan: PPI resumed Assessment and Plan dvt ppx heparin q12, until warfarin therapeutic Discharge Planning Likely to MedSurg when cleared by psych will likely need to complete abx in hospital due to poor adherence and holiday schedule (through 05/06) Katarzyna Lira MD Apr 30, 2017 08:18
[2017-04-30] MEDS: AMIODARONE 200 MG TAB PO SCH (08:38)
[2017-04-30] MEDS: METOPROLOL SUCCINATE 50 MG EXTENDED RELEASE TAB PO SCH (08:38)
[2017-04-30] MEDS: CALCIUM ACETATE 667 MG CAP PO SCH ×3 (08:39→17:37)
[2017-04-30] MEDS: HEPARIN SODIUM - SQ 10,000 UNITS/ML VIAL SQ SCH ×2 (08:39→20:20)
[2017-04-30] MEDS: PANTOPRAZOLE SOD 20 MG DELAYED RELEASE TAB PO SCH (08:39)
[2017-04-30] MEDS: ceFAZolin 1,000 MG/NS 100 ML IV SCH ×4 (08:39→21:57)
[2017-04-30] MEDS: ARIPiprazole 2 MG TAB PO SCH ×2 (08:39→20:20)
[2017-04-30 08:45] VITALS: O2SAT 95
--- NOTE | 2017-04-30 10:28 | HHI.NPPN ---
Subjective Renal Failure: Chronic, End Stage Renal Disease Additional Remarks No acute complaints. Tolerated HD yesterday Objective Data Data 04/30/17 05/01/17 19:00 07:00 Intake Total 480 ml Balance 480 ml Intake Oral 480 ml # Voids 2 Vital Signs Date Time Temp Pulse Resp B/P (MAP) Pulse Ox O2 Delivery O2 Flow Rate FiO2 04/30/17 08:45 95 21 04/30/17 06:34 98.1 66 16 152/67 (95) 94 04/29/17 17:52 97.7 70 16 117/58 (77) 93 -: 04/28/17 0834 Physical Exam General Appearance: Well Developed, No Acute Distress, Comfortable Throat Throat Exam: Oral Mucosa [place] & Moist Pulmonary Resp Exam: Clear Bilaterally, Breath Sounds Equal Cardiology CV Exam: Good Perfusion, Irregular Gastrointestinal/Abdomen GI Exam: Soft, Non-Tender, Bowel Sounds Present Musculoskeletal MS Exam: Joints Intact, Normal Tone Integumentary Skin Exam: Clear, Warm, Dry, Intact Extremeties Extremities Exam: No Edema, Pedal Pulses Palpable Neurologic Neuro Exam: Alert, Awake, Oriented, Speech Clear, Moving All Extremities Psychiatric Psych Exam: Appropriate Responses Assessment/Plan Discussed Condition With: Patient Assessment Summary: [place] Hyperparathyroid, End Stage Renal Disease Electrolyte Assessment: Hyponatremia Problem List: (1) ESRD (end stage renal disease) ICD Codes: N18.6 - End-stage renal disease Status: Chronic Plan: Outpatient MWF HD. Refused HD earlier yesterday, however agreed later in the day and received full treatment. (Did not feel she was "ready" for HD when initally called for treatment). Plan next HD Monday, then Monday (Holiday Schedule). Monitor fluid and electrolytes intermittently. Avoid IVF. High protein diet encouraged. AVF left arm. (2) Psychosis ICD Codes: F29 - Unspecified psychosis not due to a substance or known physiological condition Plan: Transferred to psych floor Has PRN medications available (3) Septicemia due to Staphylococcus aureus ICD Codes: A41.01 - Sepsis due to Methicillin susceptible Staphylococcus aureus Status: Acute Plan: On Cefazolin ID has evaluated Repeat blood culture from 04/26 negative. Stop date 05/06 She had MSSA from unknown source; monitor clinically - afebrile now. (4) Afib ICD Codes: I48.91 - Unspecified atrial fibrillation Plan: Rate controlled On Cardizem and Coumadin monitor INR (5) Metabolic bone disease ICD Codes: E88.9 - Metabolic bone disease; M90.80 - Osteopathy in diseases classified elsewhere, unspecified site Status: Acute Plan: Resume Phoslo with meals Intermittently obtain phosphorus level Ike Mayfield MD Apr 30, 2017 10:28
[2017-04-30 11:28] LABS: BASOPHIL # 0.1 TH/MM3 (0-0.2); BASOPHIL % 0.9 % (0.0-2.0); EOSINOPHIL # 0.2 TH/MM3 (0-0.4); EOSINOPHIL % 2.1 % (0.0-4.0); HEMO FLAGS DIFF FINAL; LYMPH % 14.6 % (9.0-44.0); LYMPHOCYTE # 1.2 TH/MM3 (1.0-4.8); MEAN CELL VOLUME 89.4 FL (80.0-100.0); MEAN CORPUSCULAR HEMOGLOBIN 28.5 PG (27.0-34.0); MEAN CORPUSCULAR HGB CONC 31.9 % (32.0-36.0); MONO % 8.3 % (0.0-8.0); NEUT % 74.1 % (16.0-70.0); PLATELET COUNT 182 TH/MM3 (150-450); RED CELL DISTRIBUTION WIDTH 15.9 % (11.6-17.2); WHITE BLOOD COUNT 8.1 TH/MM3 (4.0-11.0)
[2017-04-30 11:55] LABS: BICARBONATE 29.5 MEQ/L (21.0-32.0)
[2017-04-30] MEDS: SEVELAMER CARBONATE 800 MG TAB PO SCH ×2 (12:00→17:00)
--- NOTE | 2017-04-30 16:25 | PD.PSY.CON ---
Provisional Diagnosis Admission Date Apr 27, 2017 at 12:53 [place]. Delirium; rule out unspecified psychotic disorder History of Present Illness Service Psychiatry Consult Requested By psychiatry Reason for Consult 2nd opinion Primary Care Physician Marzena Lozoya MD HPI Pt seen and discussed with staff. Chart reviewed. She is a 61YOAAF admitted under a BA due to agitation and psychosis. Staff report that pt has been irritable and accusing them of killing her. She has been refusing to eat intermittently and refusing care. She refused Abilify and heparin and is suspicious about medications and medical diagnosis. No SI/HI. Psychiatric family history: No family psychiatric history Past psychiatric history: Denies previous psychiatric diagnoses, denies previous psychiatric hospitalizations, denies previous suicide attempt or self- injurious behavior. Previous psychiatric medications: None, although reports having been prescribed Cymbalta which she refused to take at the time of her diagnosis of renal failure. Substance use disorder: Reports remote history of tobacco, marijuana, cocaine, speedball, heroine use years ago. Patient denies use any other illegal substance recently or currently. Past medical history: Hypertension, ESRD (requiring dialysis 3 times per week) Allergies: Azithromycin, vancomycin Social history: born and raised in [facility], she is single, domiciled in [place] with her granddaughter, has 2 adult children, supported by [employer] benefits and disability income. 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 Past Family Social History Coded Allergies: azithromycin (Verified Allergy, Severe, 04/19/17) vancomycin (Verified Allergy, Severe, PT VERIFIED RASH WITH VANCOMYCIN., 04/19/17) Reported Medications Calcium Acetate (Phosphate Binder) (Calcium Acetate (Phosphate Binder)) 667 Mg Tab, 667 MG PO TIDAC for Hyperphosphatemia, #90 TAB 0 Refills 04/27/17 Sevelamer Carbonate (Renvela) 800 Mg Tab, 800 MG PO TIDAC for Control phosphorous levels, #90 TAB 0 Refills 04/27/17 Hydroxyzine HCl (Hydroxyzine HCl) 25 Mg Tab, 25 MG PO TID Y for ALLERGIES, TAB 0 Refills 08/05/16 Warfarin (Warfarin) 7.5 Mg Tab, 7.5 MG PO DAILY for Blood Clot Prevention, #30 TAB 0 Refills 08/05/16 Metoprolol Succinate ER 24 HR (Metoprolol Succinate ER 24 HR) 50 Mg Tab, 50 MG PO DAILY, #30 TAB 0 Refills 08/05/16 Insulin Glargine Inj (Lantus Inj) 1,000 Unit/10 Ml Vial, 16 UNITS SQ HS for Blood Sugar Management, VIAL 0 Refills 08/05/16 Current Medications Medications (Trade) Dose Ordered Sig/[place] Route Start Time Stop Time Status Last Admin (Atarax) 25 mg Q8H PRN PO 04/27/17 14:30 04/27/17 22:11 (Levemir Inj) 16 units HS SQ 04/27/17 21:00 04/29/17 21:05 (Coumadin) 7.5 mg DAILY@1600 PO 04/27/17 16:00 04/29/17 18:07 (Ativan) 1 mg Q6H PRN PO 04/27/17 14:30 04/28/17 17:57 (Ativan Inj) 1 mg Q6H PRN IM 04/27/17 14:30 (Tylenol) 650 mg Q4H PRN PO 04/27/17 14:15 04/28/17 18:04 (D50w (Vial) Inj) 50 ml UNSCH PRN IV PUSH 04/27/17 14:15 (Glucagon Inj) 1 mg UNSCH PRN OTHER 04/27/17 14:15 (NovoLOG SUPPLEMENTAL SCALE) 1 ACHS SLIDING SCALE SQ 04/27/17 17:00 04/29/17 08:00 (Cordarone) 400 mg DAILY PO 04/27/17 18:00 04/30/17 08:38 (Heparin Inj) 5,000 units Q12H SQ 04/27/17 21:00 04/28/17 23:08 Cefazolin Sodium 1000 mg/Sodium Chloride 100 ml @ 200 mls/hr Q12H IV 04/27/17 21:00 04/30/17 08:39 Sodium Chloride 1,000 ml @ 0 mls/hr Q0M PRN OTHER 04/27/17 20:17 04/29/17 15:38 (Heparin Inj) 8,000 units UNSCH PRN IV FLUSH 04/27/17 20:30 Sodium Chloride 1,000 ml @ 200 mls/hr Q5H PRN IV 04/27/17 20:17 Sodium Chloride 1,000 ml @ 0 mls/hr Q0M PRN OTHER 04/27/17 20:17 (Mannitol Inj) 12.5 gm UNSCH PRN IV 04/27/17 20:30 Albumin Human 100 ml @ 60 mls/hr UNSCH PRN IV 04/27/17 20:30 (NS Flush) 5 ml UNSCH PRN IV FLUSH 04/27/17 20:30 (Heparin Inj) UNSCH PRN .XX 04/27/17 20:30 (Gentamicin (Dialysis) Inj) 20 mg UNSCH PRN OTHER 04/27/17 20:30 (Zofran Inj) 4 mg UNSCH PRN IV PUSH 04/27/17 20:30 (Tylenol) 650 mg UNSCH PRN PO 04/27/17 20:30 (Benadryl) 25 mg UNSCH PRN PO 04/27/17 20:30 (Nitrostat Sl) 0.4 mg UNSCH PRN SL 04/27/17 20:30 (Catapres) 0.1 mg UNSCH PRN PO 04/27/17 20:30 (Epogen Inj) 5,000 units UNSCH PRN IV PUSH 04/27/17 20:30 04/29/17 15:39 (Gelfoam 12 Mm/7 Mm Top) 1 foam UNSCH PRN TOP 04/27/17 20:30 04/29/17 15:39 (Phoslo) 667 mg TID PO 04/28/17 13:00 04/30/17 08:39 (Toprol Xl) 50 mg DAILY PO 04/29/17 09:00 04/30/17 08:38 (Abilify) 2 mg BID PO 04/28/17 21:00 04/28/17 23:07 (Protonix) 20 mg DAILY PO 04/30/17 09:00 04/30/17 08:39 (Renvela) 800 mg TIDAC PO 04/30/17 12:00 Patient's Strengths (min. 2) Verbal and communicative Physical Exam Vital Signs Vital Signs Date Time Temp Pulse Resp B/P (MAP) Pulse Ox O2 Delivery O2 Flow Rate FiO2 04/30/17 08:45 95 21 04/30/17 06:34 98.1 66 16 152/67 (95) I/O 04/30/17 04/30/17 05/01/17 08:00 16:00 00:00 Intake Total 360 ml 0 ml Balance 360 ml 0 ml Lab Results Test 04/30/17 11:15 White Blood Count 8.1 TH/MM3 Red Blood Count 3.80 MIL/MM3 Hemoglobin 10.8 GM/DL Hematocrit 34.0 % Mean Corpuscular Volume 89.4 FL Mean Corpuscular Hemoglobin 28.5 PG Mean Corpuscular Hemoglobin Concent 31.9 % Red Cell Distribution Width 15.9 % Platelet Count 182 TH/MM3 Mean Platelet Volume 10.0 FL Neutrophils (%) (Auto) 74.1 % Lymphocytes (%) (Auto) 14.6 % Monocytes (%) (Auto) 8.3 % Eosinophils (%) (Auto) 2.1 % Basophils (%) (Auto) 0.9 % Neutrophils # (Auto) 6.0 TH/MM3 Lymphocytes # (Auto) 1.2 TH/MM3 Monocytes # (Auto) 0.7 TH/MM3 Eosinophils # (Auto) 0.2 TH/MM3 Basophils # (Auto) 0.1 TH/MM3 CBC Comment DIFF FINAL Differential Comment Blood Urea Nitrogen 46 MG/DL Creatinine 6.98 MG/DL Random Glucose 119 MG/DL Calcium Level 8.6 MG/DL Sodium Level 130 MEQ/L Potassium Level 4.0 MEQ/L Chloride Level 91 MEQ/L Carbon Dioxide Level 29.5 MEQ/L Anion Gap 10 MEQ/L Estimat Glomerular Filtration Rate 7 ML/MIN Mental Status Examination Appearance: Disheveled (slightly) Consciousness: Alert Orientation: Person, Place Speech: Other (increased rate) Language: Adequate Fund of Knowledge: Adequate Attention and Concentration: Easily Distracted Memory: Impaired (events surrounding her recent admission) Mood: Anxious Affect: Labile, Other (laughing inappropriately at times) Thought Process & Associations: Circumstantial, Disorganized (at times) Thought Content: Delusional Hallucination Type: None Delusion Type: None, Paranoid Suicidal Ideation: No Suicidal Plan: No Suicidal Intention: No Homicidal Ideation: No Homicidal Plan: No Homicidal Intention: No Insight: Poor Judgment: Poor Assessment & Plan Problem List: (1) Delirium due to another medical condition ICD Codes: F05 - Delirium due to known physiological condition (2) Unspecified psychosis ICD Codes: F29 - Unspecified psychosis not due to a substance or known physiological condition Assessment & Plan I agree that pt meets BA criteria. 2nd opinion completed. Estimated LOS: days Victoria Rice MD Apr 30, 2017 16:25
[2017-04-30] MEDS: WARFARIN SOD 7.5 MG TAB PO SCH (17:36)
[2017-04-30 18:07] VITALS: BP 147/67; PULSE 63; RESP 16; TEMP 97.6; O2SAT 97
[2017-04-30] MEDS: INSULIN DETEMIR 100 UNITS/ML VIAL SQ SCH (21:58)
[2017-04-30] MEDS: ACETAMINOPHEN 325 MG TAB PO PRN (22:11)
[2017-05-01 05:59] VITALS: BP 159/70; PULSE 53; RESP 16; TEMP 97.7; O2SAT 97
[2017-05-01] MEDS: ceFAZolin 1,000 MG/NS 100 ML IV SCH ×2 (07:58)
[2017-05-01] MEDS: INSULIN ASPART SUPPLEMENTAL SCALE SQ SCH ×3 (08:00→16:34)
[2017-05-01] MEDS: SEVELAMER CARBONATE 800 MG TAB PO SCH ×3 (08:00→16:32)
[2017-05-01] MEDS: HEPARIN SODIUM - SQ 10,000 UNITS/ML VIAL SQ SCH (08:00)
[2017-05-01] MEDS: AMIODARONE 200 MG TAB PO SCH ×2 (08:46→12:48)
[2017-05-01] MEDS: ARIPiprazole 2 MG TAB PO SCH ×2 (08:46→09:00)
[2017-05-01] MEDS: METOPROLOL SUCCINATE 50 MG EXTENDED RELEASE TAB PO SCH ×2 (08:47→12:48)
[2017-05-01] MEDS: PANTOPRAZOLE SOD 20 MG DELAYED RELEASE TAB PO SCH ×2 (08:47→12:47)
[2017-05-01] MEDS: CALCIUM ACETATE 667 MG CAP PO SCH (08:47)
--- NOTE | 2017-05-01 09:31 | HHI.NPPN ---
Subjective Renal Failure: Chronic, End Stage Renal Disease Interval History Seen during dialysis. She is talkative, logical thought process today. No complaints. (Petrona Sexton) Objective Data Data Vital Signs Date Time Temp Pulse Resp B/P (MAP) Pulse Ox O2 Delivery O2 Flow Rate FiO2 05/01/17 05:59 97.7 53 16 159/70 (99) 97 04/30/17 23:11 20 04/30/17 18:07 97.6 63 16 147/67 (93) 97 (Petrona Sexton) -: 04/30/17 1115 04/30/17 1115 Physical Exam General Appearance: Well Developed, No Acute Distress, Comfortable (Petrona Sexton) Throat Throat Exam: Oral Mucosa [place] & Moist (Petrona Sexton) Pulmonary Resp Exam: Clear Bilaterally, Breath Sounds Equal (Petrona Sexton) Cardiology CV Exam: Good Perfusion, Irregular (Petrona Sexton) Gastrointestinal/Abdomen GI Exam: Soft, Non-Tender, Bowel Sounds Present (Petrona Sexton) Musculoskeletal MS Exam: Joints Intact, Normal Tone (Petrona Sexton) Integumentary Skin Exam: Clear, Warm, Dry, Intact (Petrona Sexton) Extremeties Extremities Exam: No Edema, Pedal Pulses Palpable (Petrona Sexton) Neurologic Neuro Exam: Alert, Awake, Oriented, Speech Clear, Moving All Extremities (Petrona Sexton) Psychiatric Psych Exam: Appropriate Responses (Petrona Sexton) Assessment/Plan Discussed Condition With: Patient Assessment Summary: [place] Hyperparathyroid, End Stage Renal Disease Electrolyte Assessment: Hyponatremia Problem List: (1) ESRD (end stage renal disease) ICD Codes: N18.6 - End-stage renal disease Status: Chronic Plan: Seen during HD today on a 2K, 350 BFR, goal 2L Monitor fluid and electrolytes intermittently. Avoid IVF. High protein diet encouraged. Will add supplements. AVF left arm. Avoid BP measurements, IV sticks, etc. (2) Psychosis ICD Codes: F29 - Unspecified psychosis not due to a substance or known physiological condition Plan: Psychiatry following She is on abilify Has PRN medications available (3) Septicemia due to Staphylococcus aureus ICD Codes: A41.01 - Sepsis due to Methicillin susceptible Staphylococcus aureus Status: Acute Plan: On Cefazolin ID has evaluated Repeat blood culture from 04/26 negative. Stop date 05/06 She had MSSA from unknown source; monitor clinically - afebrile now. (4) Afib ICD Codes: I48.91 - Unspecified atrial fibrillation Plan: Rate controlled On Amiodarone and metoprolol, not on full anticoagulation (5) Metabolic bone disease ICD Codes: E88.9 - Metabolic bone disease; M90.80 - Osteopathy in diseases classified elsewhere, unspecified site Status: Acute Plan: On Renvela with meals Intermittently obtain phosphorus level (Petrona Sexton) Plan patient was seen and examined. Agree with above assessment and plan. (Louis Fagan MD) Petrona Sexton May 01, 2017 09:31 Louis Fagan MD May 01, 2017 10:37
--- NOTE | 2017-05-01 11:09 | HHI.PR ---
Subjective Remarks Patient seen in hemodialysis, doing well. No complaints medically. Patient still defiant and with difficulty with cooperation. Blood cultures remain negative Objective Vitals Vital Signs Date Time Temp Pulse Resp B/P (MAP) Pulse Ox O2 Delivery O2 Flow Rate FiO2 05/01/17 05:59 97.7 53 16 159/70 (99) 97 04/30/17 23:11 20 04/30/17 18:07 97.6 63 16 147/67 (93) 97 I/O 04/30/17 04/30/17 04/30/17 05/01/17 05/01/17 05/01/17 07:00 15:00 23:00 07:00 15:00 23:00 Intake Total 360 ml 480 ml 240 ml 240 ml Balance 360 ml 480 ml 240 ml 240 ml Intake Oral 360 ml 480 ml 240 ml 240 ml # Voids 2 1 1 Result Diagram: 04/30/17 1115 04/30/17 1115 Objective Remarks GENERAL: This is a well-nourished, well-developed patient, in no apparent distress. CARDIOVASCULAR: Regular rate and rhythm without murmurs, gallops, or rubs. RESPIRATORY: Clear to auscultation. Breath sounds equal bilaterally. No wheezes , rales, or rhonchi. GASTROINTESTINAL: Abdomen soft, non-tender, nondistended. Normal active bowel sounds MUSCULOSKELETAL: Left graft, Extremities without clubbing, cyanosis, or edema. NEURO: Alert & Oriented x4 to person, place, time, situation. Moves all ext x4 A/P Problem List: (1) Afib ICD Code: I48.91 - Unspecified atrial fibrillation Plan: Controlled on metoprolol/amiodarone follow electrolytes Continue warfarin and follow INR (2) Septicemia due to Staphylococcus aureus ICD Code: A41.01 - Sepsis due to Methicillin susceptible Staphylococcus aureus Status: Acute Plan: ID following MSSA, source unknown Patient will need to cont cefazolin IV for 10 days after the date of last set of blood cultures () as long as they remain negative Will repeat blood cultures 48 hours after DC antibiotics (05/06) and if they returned positive patient will need prolonged course of antibiotics. Patient did not consent to DANN and it is difficult to diagnose endocarditis (3) ESRD (end stage renal disease) ICD Code: N18.6 - End-stage renal disease Status: Chronic Plan: HD per renal M/W/F renvela/calcium (4) Psychosis ICD Code: F29 - Unspecified psychosis not due to a substance or known physiological condition Plan: transferred to [facility] due to various psychotic outbursts appears stabilizing although she seems alert and oriented she does appear to have underlying defiant tendencies (5) DM2 (diabetes mellitus, type 2) ICD Code: E11.9 - Type 2 diabetes mellitus without complications Plan: controlled levemir, sliding scale follow po intake (6) Dyspepsia ICD Code: R10.13 - Epigastric pain Plan: PPI Assessment and Plan dvt ppx heparin q12, until warfarin therapeutic Discharge Planning Likely to MedSurg when cleared by psych will likely need to complete abx in hospital due to poor adherence and holiday schedule (through 05/06) Katarzyna Lira MD May 01, 2017 11:09
[2017-05-01] MEDS: EPOETIN ALFA 10,000 UNITS/ML VIAL IV PUSH PRN (11:42)
[2017-05-01] MEDS: GELATIN 12 MM/7 MM FOAM TOP PRN (11:43)
[2017-05-01 12:45] VITALS: BP 130/58; PULSE 62
--- NOTE | 2017-05-01 15:05 | HHI.DS ---
Psychiatry Discharge Summary Inpatient Psychiatric care?: Yes Advance Directive: No Reason Not Provided: PT PROVIDED EDUCATION Mental Health AdvanceDirective: No Health Care Proxy: No Admission Admission Date Apr 27, 2017 at 12:53 Admission Diagnosis: (1) Delirium due to another medical condition ICD Code: F05 - Delirium due to known physiological condition Brief History Pt seen and discussed with staff. Chart reviewed. She is a 61YOAAF admitted under a BA due to agitation and psychosis. Staff report that pt has been irritable and accusing them of killing her. She has been refusing to eat intermittently and refusing care. She refused Abilify and heparin and is suspicious about medications and medical diagnosis. No SI/HI. Psychiatric family history: No family psychiatric history Past psychiatric history: Denies previous psychiatric diagnoses, denies previous psychiatric hospitalizations, denies previous suicide attempt or self- injurious behavior. Previous psychiatric medications: None, although reports having been prescribed Cymbalta which she refused to take at the time of her diagnosis of renal failure. Substance use disorder: Reports remote history of tobacco, marijuana, cocaine, speedball, heroine use years ago. Patient denies use any other illegal substance recently or currently. Past medical history: Hypertension, ESRD (requiring dialysis 3 times per week) Allergies: Azithromycin, vancomycin Social history: born and raised in [facility], she is single, domiciled in [place] with her granddaughter, has 2 adult children, supported by prison benefits and disability income. Highest education [employer] studies Tobacco Use In Past 30 Days: No Tobacco Past 30 Days Alcohol Use: Never Hospital Course Patient is a 61-year-old [place] woman, domiciled with her granddaughter [place], single, retired supported on disability income in prison funds, no previous psychiatric history, no previous psychiatric hospitalizations, no previous suicide attempt or self-injurious behavior, medical history of end-stage renal disease, hypertension, who initially presented to the hospital due to multiple pain sites, was admitted to the ICU due to hypertensive emergency in the context of requiring dialysis and was noted to have fluctuating mental status for possible delirium (agitation, disorganization, visual hallucinations). Patient was seen by psychiatric field consultant and noted to have clinical signs of catatonia which patient was started on Ativan challenge responded to. On reevaluation, patient now noted to be tangential, disorganized, internally preoccupied with fluctuation of consciousness and unable to express understanding of the acuity of her medical presentation at that moment. Patient continued to be noted to be very talkative , rapid speech, expansive affect, requiring restraints in the ICU along with emergency treatment orders due to aggression which once medically stable was able to be transferred to the inpatient psychiatry for further evaluation and management. Patient was continued on aripiprazole 2mg PO BID for psychotic symptoms which patient continued to refuse. Patient was prior to his for mood and behavior which patient was initially noted to have slightly rapid speech with some grandiosity but was not noted to have any perceptual disturbances or delusions nor aggressive behavior as previously experienced while in the ICU. Patient continued to show stable mood, was calm and cooperative with staff and denied present with any symptoms of beth or psychosis thereafter. This highly likely the patient was in delirium with presented with manic and psychotic symptoms along with aggressiveness which had resolved once medically stable. Patient no longer indicated to continue Abilify as symptoms have resolved likely secondary to delirium. Patient continued to adhere to medical recommendations and receiving dialysis schedule. Upon discharge patient stated to agreeing to continuing medical recommendations, treatment and attend outpatient follow up appointments for continuity of care. Patient will be discharged to medical floor for further medical management and accepted to medical service by Dr. Lira. Patient denies SI, HI, AVH or delusions. Supportive psychotherapy provided. Patient agrees with plan. Results Blood Pressure 130 / 58 Vital Signs Date Time Temp Pulse Resp B/P (MAP) Pulse Ox O2 Delivery O2 Flow Rate FiO2 05/01/17 12:45 62 130/58 (82) 05/01/17 05:59 97.7 16 97 04/30/17 08:45 21 Laboratory Tests Test 04/30/17 11:15 Red Blood Count 3.80 MIL/MM3 (4.00-5.30) Hemoglobin 10.8 GM/DL (11.6-15.3) Hematocrit 34.0 % (35.0-46.0) Mean Corpuscular Hemoglobin Concent 31.9 % (32.0-36.0) Neutrophils (%) (Auto) 74.1 % (16.0-70.0) Monocytes (%) (Auto) 8.3 % (0.0-8.0) Blood Urea Nitrogen 46 MG/DL (7-18) Creatinine 6.98 MG/DL (0.50-1.00) Random Glucose 119 MG/DL (74-106) Sodium Level 130 MEQ/L (136-145) Chloride Level 91 MEQ/L (98-107) Estimat Glomerular Filtration Rate 7 ML/MIN (>89) Laboratory Results Test 04/28/17 08:34 Cholesterol Level 129 MG/DL (120-200) HDL Cholesterol 18.0 MG/DL (40.0-60.0) Hemoglobin A1c 8.1 % (4.3-6.0) LDL Cholesterol 64 MG/DL (0-99) Triglycerides Level 236 MG/DL (42-150) Summary of Procedures Dialysis as per medical team Pending results at discharge: No Medications # of Antipsychotic meds at D/C: 0 Approp Antipsych med options 1 - Minimum of three failed multiple trials of monotherapy. 2 - Documented plan to taper to monotherapy due to previous use of multiple meds OR cross-taper in progress at D/C. 3 - Documentation of augmentation of Clozapine. 4 - Justification other than those listed in allowable values 1-3, document here : Discharge Discharge Date: May 01, 2017 Discharge Diagnosis: (1) Delirium due to another medical condition Diagnosis: Principal ICD Code: F05 - Delirium due to known physiological condition Pt Condition on Discharge: Stable Discharge Disposition: Discharge Home (patient will be discharged to medical floor as accepted by Dr. Lira on the medical team.) Discharge Instructions Diet Instructions: Dialysis Diet Activities you can perform: Weight Bearing as Karl Discharge Time > 30 minutes Mental Status Examination Appearance: Appropriate Consciousness: Alert Orientation: x4 Speech: Unremarkable Language: Adequate Fund of Knowledge: Adequate Attention and Concentration: Adequate Memory: Impaired (events surrounding her recent admission) Mood: Appropriate Affect: Appropriate, Other (laughing inappropriately at times) Thought Process & Associations: Intact, Goal directed, Linear Thought Content: Appropriate Hallucination Type: None Delusion Type: None Suicidal Ideation: No Suicidal Plan: No Suicidal Intention: No Homicidal Ideation: No Homicidal Plan: No Homicidal Intention: No Insight: Fair Judgment: Impulsive Discharge/Advance Care Plan Health Problems: (1) Delirium due to another medical condition (2) Unspecified psychosis Goals to promote your health * To prevent worsening of your condition and complications * To maintain your health at the optimal level Directions to meet your goals Take your medications as prescribed Follow your dietary instruction Follow activity as directed Keep your appointments as scheduled Take your immunizations and boosters as scheduled If your symptoms worsen call your PCP, if no PCP go to Urgent Care Center or Emergency Room For 02/01 questions related to your inpatient stay or results of tests pending at discharge, please contact Dr. Dheeraj Rubin at Smoking is Dangerous to Your Health. Avoid second hand smoking Dheeraj Rubin MD May 01, 2017 15:05
[2017-05-01 15:37] LABS: PROTHROMBIN TIME - PATIENT 22.3 SEC (9.8-11.6)
[2017-05-01] MEDS: WARFARIN SOD 7.5 MG TAB PO SCH (16:32)
== END 2017-05-01 16:45 | disposition short-term general hospital (02) | DRG 885 ==
LOC: H4EA 12:53
PROVIDERS: ADMIT Student in an Organized Health Care Education/Training Program; ATTEND Student in an Organized Health Care Education/Training Program
PROC: 5A1D70Z Performance of Urinary Filtration, Intermittent, Less than 6 Hours Per Day (ICD-10-PCS; principal; 2017-04-29)
DX: F29 Unspecified psychosis not due to a substance or known physiological condition (principal); A41.01 Sepsis due to Methicillin susceptible Staphylococcus aureus; N18.6 End stage renal disease; N25.81 Secondary hyperparathyroidism of renal origin; E87.1 Hypo-osmolality and hyponatremia; F05 Delirium due to known physiological condition; E11.22 Type 2 diabetes mellitus with diabetic chronic kidney disease; I48.91 Unspecified atrial fibrillation; Z53.20 Procedure and treatment not carried out because of patient's decision for unspecified reasons; I12.9 Hypertensive chronic kidney disease with stage 1 through stage 4 chronic kidney disease, or unspecified chronic kidney disease; N25.0 Renal osteodystrophy; Z99.2 Dependence on renal dialysis; Z87.891 Personal history of nicotine dependence; Z79.01 Long term (current) use of anticoagulants
CPT/HCPCS: 80048; 80061; 82948; 83036; 85025; 85610; 90935; 96374; 96375; J0690; J1644; J1815; J2405; J7030; Q4081

== ENCOUNTER 2017-05-01 17:58 | Inpatient (IN) | payer MEDICARE, OTHER ==
[~2017-05-01 17:58] MED LIST changes: +CALC667T PO; +SEVEL800 PO
[2017-05-01 18:06] VITALS: BP 141/63; PULSE 58; RESP 18; TEMP 97.9; O2SAT 94
[2017-05-01] MEDS ORDERED: DEXTROSE 50% IN WATER 50 ML VIAL(D50) IV PUSH PRN (18:45)
[2017-05-01] MEDS ORDERED: NALOXONE HCL 0.4 MG/ML AMP IV PUSH PRN (18:45)
[2017-05-01] MEDS ORDERED: TEMAZEPAM 15 MG CAP PO PRN (18:45)
[2017-05-01] MEDS ORDERED: SODIUM CHLORIDE 0.9% FLUSH 10 ML FLUSH IV FLUSH PRN (18:45)
[2017-05-01] MEDS ORDERED: GLUCAGON 1 MG/ML VIAL OTHER PRN (18:45)
[2017-05-01] MEDS ORDERED: HEPARIN SODIUM - SQ 10,000 UNITS/ML VIAL SQ SCH (18:45)
[2017-05-01] MEDS ORDERED: hydrOXYzine HCL 25 MG TAB PO PRN (18:45)
[2017-05-01 20:33] VITALS: BP 122/60; PULSE 60; RESP 18; TEMP 98.6; O2SAT 99
[2017-05-01] MEDS ORDERED: INSULIN DETEMIR 100 UNITS/ML VIAL SQ SCH (21:00)
[2017-05-01] MEDS: INSULIN ASPART SUPPLEMENTAL SCALE SQ SCH (21:20)
[2017-05-01] MEDS: SODIUM CHLORIDE 0.9% FLUSH 10 ML FLUSH IV FLUSH SCH (21:20)
[2017-05-02] VITALS (8 sets, daily range): BP systolic 118–199; BP diastolic 61–82; PULSE 47–61; RESP 16–20; TEMP 97.5–98.1; O2SAT 92–100
[2017-05-02 05:47] LABS: AUTOMATED NEUTROPHIL # 4.9 TH/MM3 (1.8-7.7); BASOPHIL # 0.1 TH/MM3 (0-0.2); BASOPHIL % 0.8 % (0.0-2.0); BICARBONATE 29.3 MEQ/L (21.0-32.0); EOSINOPHIL # 0.2 TH/MM3 (0-0.4); EOSINOPHIL % 2.9 % (0.0-4.0); HEMATOCRIT 33.8 % (35.0-46.0); HEMO FLAGS DIFF FINAL; INTERNATIONAL NORMALIZED RATIO 2.3 RATIO; LYMPH % 20.6 % (9.0-44.0); LYMPHOCYTE # 1.6 TH/MM3 (1.0-4.8); MEAN CELL VOLUME 91.4 FL (80.0-100.0); MEAN CORPUSCULAR HEMOGLOBIN 29.2 PG (27.0-34.0); MEAN CORPUSCULAR HGB CONC 31.9 % (32.0-36.0); MONO % 11.7 % (0.0-8.0); PLATELET COUNT 180 TH/MM3 (150-450); POTASSIUM 4.4 MEQ/L (3.5-5.1); PROTHROMBIN TIME - PATIENT 26.4 SEC (9.8-11.6); RED CELL DISTRIBUTION WIDTH 16.3 % (11.6-17.2); WHITE BLOOD COUNT 7.7 TH/MM3 (4.0-11.0)
--- NOTE | 2017-05-02 07:53 | HHI.HP ---
[facility] Marzena Lozoya MD Admission Diagnosis Staph aureus sepsis Diagnoses: Chief Complaint: Positive blood culture Travel History International Travel<30 Days: No Contact w/Intl Traveler <30 Da: No Traveled to Known Affected Are: No Sepsis Criteria Sepsis Criteria (SIRS+source): Infect source susp/known Criteria Outcome: Meets sepsis criteria History of Present Illness Patient is a very pleasant 61-year-old female with history of end-stage renal disease on hemodialysis Monday, paroxysmal A. fib now in normal sinus rhythm, hypertension who was admitted here recently is secondary to septicemia due to staph aureus sepsis. During hospital stay did develop delirium secondary to underlying medical condition/unspecified psychosi secondary to sepsis s. Patient was transferred to the [facility] for further psychiatric management. A DANN was recommended however at that time patient was unable to give consent and son refused to sign consent. Patient was placed on IV cefazolin 1 g every 12 and undergoing hemodialysis. Patient mental status improved and is now awake alert and very cooperative with care. Now -t she specifically agreed to the procedure.. States good hypoglycemic awareness. She was awake alert oriented cooperative and able to give full history of her medical conditions and specifically give me a call her primary care doctor and specialists that she follows up with as outpatient Patient now states that is agreeable to have the DANN done. Patient is afebrile. Denies any pain with good by mouth appetite. Complains of constipation. No nausea vomiting chest pains or shortness of breath. Review of Systems Constitutional: DENIES: Diaphoretic episodes, Fatigue, Fever, Weight gain, Weight loss, Chills, Dizziness, Change in appetite, Night Sweats Endocrine: DENIES: Abnorml menstrual pattern, Heat/cold intolerance, Polydipsia , Polyuria, Polyphagia Eyes: DENIES: Blurred vision, Diplopia, Eye inflammation, Eye pain, Vision loss , Photosensitivity, Double Vision Ears, nose, mouth, throat: DENIES: Tinnitus, Hearing loss, Vertigo, Nasal discharge, Oral lesions, Throat pain, Hoarseness, Ear Pain, Running Nose, Epistaxis, Sinus Pain, Toothache, Odynophagia Respiratory: DENIES: Apneas, Cough, Snoring, Wheezing, Hemoptysis, Sputum production, Shortness of breath Cardiovascular: DENIES: Chest pain, Palpitations, Syncope, Dyspnea on Exertion , PND, Lower Extremity Edema, Orthopnea, Claudication Gastrointestinal: COMPLAINS OF: Constipation, DENIES: Abdominal pain, Black stools, Bloody stools, Diarrhea, Nausea, Vomiting, Difficulty Swallowing, Anorexia Genitourinary: DENIES: Abnormal vaginal bleeding, Dysmenorrhea, Dyspareunia, Sexual dysfunction, Urinary frequency, Urinary incontinence, Urgency, Hematuria , Dysuria, Nocturia, Vaginal discharge Musculoskeletal: DENIES: Joint pain, Muscle aches, Stiffness, Joint Swelling, Back pain, Neck pain Integumentary: DENIES: Abnormal pigmentation, Pruritus, Rash, Nail changes, Breast masses, Breast skin changes, Nipple discharge Hematologic/lymphatic: DENIES: Bruising, Lymphadenopathy Immunologic/allergic: DENIES: Eczema, Urticaria Neurologic: DENIES: Abnormal gait, Headache, Localized weakness, Paresthesias, Seizures, Speech Problems, Tremor, Poor Balance Psychiatric: COMPLAINS OF: Delusions Past Family Social History Past Medical History Hypertension End-stage renal disease on hemodialysis History of paroxysmal A. fib Recent episode of psychosis Diabetes type 2 insulin-requiring Past Surgical History Left upper extremity AV fistula Hysterectomy Left kidney removal because of hemorrhage in 2010 Cholecystectomy in 2013 Reported Medications Currently patient is on Toprol 50 mg XL daily PhosLo Lantus 16 units at bedtime Coumadin 7.5 mg daily Renvela Allergies: Coded Allergies: azithromycin (Verified Allergy, Severe, 05/07/17) vancomycin (Verified Allergy, Severe, PT VERIFIED RASH WITH VANCOMYCIN., 05/07/17) Family History Noncontributory Social History Patient has not smoking for over 20 years Very occasional cocktail next denies IV drug use Physical Exam Vital Signs Vital Signs Date Time Temp Pulse Resp B/P (MAP) Pulse Ox O2 Delivery O2 Flow Rate FiO2 05/02/17 05:09 97.9 18 158/70 (99) 96 05/02/17 00:20 98.1 60 18 151/67 (95) 98 05/01/17 20:33 98.6 60 18 122/60 (80) 99 05/01/17 18:06 97.9 58 18 141/63 (89) 94 Physical Exam GENERAL: This is a well-nourished, well-developed patient, in no apparent distress. Awake alert oriented 3 SKIN: Some dark skin pigmentation from end-stage renal disease HEAD: Atraumatic. Normocephalic. No temporal or scalp tenderness. EYES: Pupils equal round and reactive. Extraocular motions intact. No scleral icterus. No injection or drainage. ENT: Nose without bleeding, Throat without erythema, tonsillar hypertrophy or exudate. Uvula midline. Airway patent. NECK: Trachea midline. No JVD or lymphadenopathy. Supple, nontender, no meningeal signs. CARDIOVASCULAR: Regular rate and rhythm without murmurs, gallops, or rubs. RESPIRATORY: Clear to auscultation. Breath sounds equal bilaterally. No wheezes , rales, or rhonchi. GASTROINTESTINAL: Abdomen soft, non-tender, nondistended. No hepato-splenomegaly , or palpable masses. No guarding. MUSCULOSKELETAL: Left upper extremity with AV fistula with positive good bruit Extremities without clubbing, cyanosis, or edema. No joint tenderness, effusion , or edema noted. No calf tenderness. Negative Homans sign bilaterally. NEUROLOGICAL: Awake and alert. Cranial nerves II through XII intact. Motor and sensory grossly within normal limits. Five out of 5 muscle strength in all muscle groups. Normal speech. Gait steady Laboratory Laboratory Tests Test 05/02/17 04:34 White Blood Count 7.7 Red Blood Count 3.70 Hemoglobin 10.8 Hematocrit 33.8 Mean Corpuscular Volume 91.4 Mean Corpuscular Hemoglobin 29.2 Mean Corpuscular Hemoglobin Concent 31.9 Red Cell Distribution Width 16.3 Platelet Count 180 Mean Platelet Volume 10.5 Neutrophils (%) (Auto) 64.0 Lymphocytes (%) (Auto) 20.6 Monocytes (%) (Auto) 11.7 Eosinophils (%) (Auto) 2.9 Basophils (%) (Auto) 0.8 Neutrophils # (Auto) 4.9 Lymphocytes # (Auto) 1.6 Monocytes # (Auto) 0.9 Eosinophils # (Auto) 0.2 Basophils # (Auto) 0.1 CBC Comment DIFF FINAL Differential Comment Prothrombin Time 26.4 Prothromb Time International Ratio 2.3 Blood Urea Nitrogen 33 Creatinine 6.01 Random Glucose 80 Calcium Level 8.6 Sodium Level 134 Potassium Level 4.4 Chloride Level 93 Carbon Dioxide Level 29.3 Anion Gap 12 Estimat Glomerular Filtration Rate 9 Result Diagram: 05/02/1743305/02/17433 Imaging Septic Shock Reassessment Heart: Regular rate and rhythm Lungs: Clear Skin: Warm Peripheral Pulses: Bounding Right Radial Bounding Left Radial Bounding Right Popliteal Bounding Left Popliteal Bounding Right Dorsalis Pedis Bounding Left Dorsalis Pedis Bounding Right Posterior Tibial Bounding Left Posterior Tibial Capillary Refill: Brisk Caprini VTE Risk Assessment Caprini VTE Risk Assessment: Mod/High Risk (score >= 2) Caprini Risk Assessment Model Point Value = 1 Point Value = 2 Point Value = 3 Point Value = 5 Age 41-60 Minor surgery BMI > 25 kg/m2 Swollen legs Varicose veins or History of unexplained or recurrent spontaneous Oral contraceptives or hormone replacement Sepsis (< 1 month) Serious lung disease, including pneumonia (< 1 month) Abnormal pulmonary function Acute myocardial infarction Congestive heart failure (< 1 month) History of inflammatory bowel disease Medical patient at bed rest Age 61-74 Arthroscopic surgery Major open surgery (> 45 min) Laparoscopic surgery (> 45 min) Malignancy Confined to bed (> 72 hours) Immobilizing plaster cast Central venous access Age >= 75 History of VTE Family history of VTE Factor V Leiden Prothrombin [id number] Lupus anticoagulant Anticardiolipin antibodies Elevated serum homocysteine Heparin-induced thrombocytopenia Other congenital or acquired thrombophilia Stroke (< 1 month) Elective arthroplasty Hip, pelvis, or leg fracture Acute spinal cord injury (< 1 month) Prophylaxis Regimen Total Risk Factor Score Risk Level Prophylaxis Regimen 0-1 Low Early ambulation 2 Moderate Order ONE of the following: *Sequential Compression Device (SCD) *Heparin 5000 units SQ BID 3-4 Higher Order ONE of the following medications: *Heparin 5000 units SQ TID *Enoxaparin/Lovenox 40 mg SQ daily (WT < 150 kg, CrCl > 30 mL/min) *Enoxaparin/Lovenox 30 mg SQ daily (WT < 150 kg, CrCl > 10-29 mL/min) *Enoxaparin/Lovenox 30 mg SQ BID (WT < 150 kg, CrCl > 30 mL/min) AND/OR *Sequential Compression Device (SCD) 5 or more Highest Order ONE of the following medications: *Heparin 5000 units SQ TID (Preferred with Epidurals) *Enoxaparin/Lovenox 40 mg SQ daily (WT < 150 kg, CrCl > 30 mL/min) *Enoxaparin/Lovenox 30 mg SQ daily (WT < 150 kg, CrCl > 10-29 mL/min) *Enoxaparin/Lovenox 30 mg SQ BID (WT < 150 kg, CrCl > 30 mL/min) AND *Sequential Compression Device (SCD) Assessment and Plan Assessment and Plan 61-year-old female transferred here from [facility] unit staph aureus septicemia Delirium secondary to staph aureus septicemia. Delusions Resolved. Transferred back to medical floor for further the medical workup Staph aureus sepsis. Continue on IV cefazolin 1 g every 12. Infectious disease consult followed by Dr. Farmer Patient now agreeable and consents to DANN. Will reconsult cardiology for DANN. Consult Dr. Hinojosa. Patient was seen by him End-stage renal disease on hemodialysis. Consult nephrology followed by Dr. Byers for hemodialysis arrangement. Continue on PhosLo and Renagel. History of paroxysmal A. fib now in sinus rhythm. Hypertension well controlled Continue on Toprol 50 mg XL. Continue on Coumadin 7.5 mg daily. INR therapeutic. FF History of diabetes type 2 insulin-requiring. BS low this am- asymptomatic. give D50. ff closely FF. Hold Lantus 16 units at bedtime DVT prophylaxis patient on Coumadin Patient up and ambulatory. Physician Certification 2 Midnight Certification Type: Admission for Inpatient Services Order for Inpatient Services The services are ordered in accordance with Medicare regulations or non- Medicare payer requirements, as applicable. In the case of services not specified as inpatient-only, they are appropriately provided as inpatient services in accordance with the 2-midnight benchmark. Estimated LOS (days): 3 days is the estimated time the patient will need to remain in the hospital, assuming treatment plan goals are met and no additional complications. Post-Hospital Plan: Not yet determined Kenya Hsieh MD May 02, 2017 07:53
[2017-05-02] MEDS: SEVELAMER CARBONATE 800 MG TAB PO SCH ×3 (08:00→17:28)
[2017-05-02] MEDS: CALCIUM ACETATE 667 MG CAP PO SCH ×3 (08:00→17:28)
[2017-05-02] MEDS: SODIUM CHLORIDE 0.9% FLUSH 10 ML FLUSH IV FLUSH SCH ×2 (08:57→20:06)
[2017-05-02] MEDS: METOPROLOL SUCCINATE 50 MG EXTENDED RELEASE TAB PO SCH (08:57)
[2017-05-02] MEDS: INSULIN ASPART SUPPLEMENTAL SCALE SQ SCH ×4 (08:58→20:10)
[2017-05-02] MEDS ORDERED: SODIUM CHLOR 0.9% 1000 ML INJ 1,000 ML IV PRN (09:24)
[2017-05-02] MEDS ORDERED: SODIUM CHLOR 0.9% 1000 ML INJ 1,000 ML OTHER PRN ×2 (09:24)
[2017-05-02] MEDS ORDERED: NITROGLYCERIN 0.4 MG SL 25 TABS/BTL SL PRN (09:30)
[2017-05-02] MEDS ORDERED: ACETAMINOPHEN 325 MG TAB PO PRN (09:30)
[2017-05-02] MEDS ORDERED: HEPARIN SODIUM - IV 10,000 UNITS/10 ML VIAL IV FLUSH PRN (09:30)
[2017-05-02] MEDS ORDERED: cloNIDine HCL 0.1 MG TAB PO PRN (09:30)
[2017-05-02] MEDS ORDERED: SODIUM CHLORIDE 0.9% FLUSH 10 ML FLUSH IV FLUSH PRN (09:30)
[2017-05-02] MEDS ORDERED: GELATIN 12 MM/7 MM FOAM TOP PRN (09:30)
[2017-05-02] MEDS ORDERED: HEPARIN SODIUM - IV 10,000 UNITS/10 ML VIAL PRN (09:30)
[2017-05-02] MEDS ORDERED: ALBUMIN 25% INJ 100 ML IV PRN (09:30)
[2017-05-02] MEDS ORDERED: ONDANSETRON HCL 4 MG/2 ML VIAL IV PUSH PRN (09:30)
[2017-05-02] MEDS ORDERED: diphenhydrAMINE HCL 25 MG CAP PO PRN (09:30)
[2017-05-02] MEDS ORDERED: GENTAMICIN SULFATE (DIALYSIS USE ONLY) 20 MG/2 ML VIAL OTHER PRN (09:30)
[2017-05-02] MEDS ORDERED: MANNITOL 12.5 GM/50 ML VIAL IV PRN (09:30)
--- NOTE | 2017-05-02 12:00 | HHI.NPPN ---
Subjective General Problems: Anemia Interval History Mental status improved. She was transferred back to [facility] service. Is agreeable for DANN. Dialyzed yesterday. (Petrona Sexton) Objective Data Data Vital Signs Date Time Temp Pulse Resp B/P (MAP) Pulse Ox O2 Delivery O2 Flow Rate FiO2 05/02/17 08:45 97.5 56 16 157/65 (95) 05/02/17 05:09 97.9 18 158/70 (99) 96 05/02/17 00:20 98.1 60 18 151/67 (95) 98 05/01/17 20:33 98.6 60 18 122/60 (80) 99 05/01/17 18:06 97.9 58 18 141/63 (89) 94 (Petrona Sexton) -: 05/02/17 0434 05/02/17 1010 Physical Exam General Appearance: Well Developed, No Acute Distress, Comfortable (Petrona Sexton) Eyes Eye Exam: Pupils Equal (Petrona Sexton) Throat Throat Exam: Oral Mucosa [place] Moist (Petrona Sexton) Pulmonary Resp Exam: Clear Bilaterally, Breath Sounds Equal (Petrona Sexton) Cardiology CV Exam: Regular, Normal Sinus Rhythm, Good Perfusion (Petrona Sexton) Gastrointestinal/Abdomen GI Exam: Soft, Non-Tender, Bowel Sounds Present (Petrona Sexton) Musculoskeletal MS Exam: Joints Intact, Normal Gait, Normal Tone (Petrona Sexton) Integumentary Skin Exam: Clear, Warm, Dry (Petrona Sexton) Extremeties Extremities Exam: No Edema, Pedal Pulses Palpable Extremeties Remarks AVF left arm, small aneurysm and a scab (Petrona Sexton) Neurologic Neuro Exam: Alert, Awake, Oriented, Speech Clear, Moving All Extremities (Petrona Sexton) Psychiatric Psych Exam: Appropriate Responses (Petrona Sexton) Assessment/Plan Discussed Condition With: Patient Assessment Summary: Anemia of CKD, End Stage Renal Disease Problem List: (1) ESRD (end stage renal disease) ICD Codes: N18.6 - End-stage renal disease Status: Chronic Plan: Dialyzed yesterday, she will have treatment MWF this week Avoid IVF Use medial aspect of AVF, avoid open area Intermittently evaluate electrolytes (2) Septicemia due to Staphylococcus aureus ICD Codes: A41.01 - Sepsis due to Methicillin susceptible Staphylococcus aureus Status: Acute Plan: She gave consent for DANN today On Cefazolin (3) DM2 (diabetes mellitus, type 2) ICD Codes: E11.9 - Type 2 diabetes mellitus without complications Plan: Insulin as needed to maintain glucose 140-180 mg/dL (4) Metabolic bone disease ICD Codes: E88.9 - Metabolic bone disease; M90.80 - Osteopathy in diseases classified elsewhere, unspecified site Status: Acute Plan: Use Calcium acetate with meals (5) Unspecified psychosis ICD Codes: F29 - Unspecified psychosis not due to a substance or known physiological condition Plan: Mental status improved Continue to monitor (Petrona Sexton) Plan patient was seen and examined. She now agrees for DANN. Agitation and behavioral changes have improved. We will continue dialysis. On Cefazolin. (Louis Fagan MD) Petrona Sexton May 02, 2017 12:00 Louis Fagan MD May 02, 2017 13:08
--- NOTE | 2017-05-02 14:42 | MB ---
cc: CUATE BAGLEY M.D. DATE OF CONSULTATION: 05/02/2017 REASON FOR CONSULTATION Transesophageal echocardiography. HISTORY OF PRESENT ILLNESS The patient is a 61-year-old -[place] female with a history of end-stage renal disease, leiomyosarcoma, hypertension, diabetes, hyperlipidemia, paroxysmal atrial fibrillation, who was recently admitted to the hospital with diffuse pains. Work-up did reveal evidence for Staphylococcus aureus bacteremia. She was recommended transesophageal echocardiography at that time, but consent could not be obtained. The patient is now fully alert and able to give consent. She denies chest pain, shortness of breath, dizziness, syncope, near-syncope, palpitations, pedal edema, fevers. PAST MEDICAL HISTORY 1. End-stage renal disease. 2. Leiomyosarcoma of the retroperitoneal area, status post resection many years ago. 3. Hypertension. 4. Diabetes. 5. Hyperlipidemia. 6. Hemorrhagic left renal mass status post coil embolization and subsequent left radical nephrectomy 2010. 7. Paroxysmal atrial fibrillation diagnosed 2011. She did have a brief recurrence of atrial fibrillation during her recent hospitalization. She follows chronically with Dr. Maciej French PAST SURGICAL HISTORY 1. Total abdominal hysterectomy. 2. Sarcoma resection. 3. Left radical nephrectomy 08/29/10. 4. Laparoscopic cholecystectomy 03/22/2014. MEDICATIONS Her current cardiac medication is warfarin 7.5 mg q. day. ALLERGIES 1. AZITHROMYCIN. 2. VANCOMYCIN. FAMILY HISTORY Noncontributory. SOCIAL HISTORY The patient denies any history of alcohol or tobacco abuse. REVIEW OF SYSTEMS As in the history of present illness otherwise negative or noncontributory. She also currently denies headache, dyspepsia, abdominal pain, melena, bright red blood per rectum. PHYSICAL EXAMINATION VITAL SIGNS: On physical examination her blood pressure is 168/75 with a pulse of 57, respirations 16. GENERAL: In general she is a well-developed, well-nourished -[place] female in no acute distress. HEENT/NECK: Jugular venous pressure is normal. Carotid pulses are 2+ bilaterally and without bruits. CHEST: Examination of the chest reveals unlabored respiratory effort with clear lung quijano. CARDIAC: On cardiac examination she has a regular rhythm and rate without S3, S4, or murmur. ABDOMEN: On abdominal examination she has a soft, nontender abdomen. Bowel sounds are present. There is no definite hepatosplenomegaly. EXTREMITIES: Examination of the extremities reveals no clubbing, cyanosis or edema. LABORATORY Laboratory data includes WBC 7.7, hemoglobin 10.8, platelets 180, potassium 4.4, BUN 33, creatinine 6.01. IMPRESSION Overall stable cardiac status in this 61-year-old white female with a history of multiple medical problems including hypertension, diabetes, paroxysmal atrial fibrillation, end-stage renal disease. I have been asked to see the patient for transesophageal echocardiography. Her recent transthoracic echo was of fairly good quality and no definite vegetation or signs of endocarditis were seen. Nonetheless I would agree with the need for transesophageal echocardiography given her recent Staphylococcus bacteremia. The nature of this procedure and potential risks have been outlined to the patient who agrees to proceed. With respect to her atrial fibrillation, by exam, she remains in sinus rhythm. She was previously on metoprolol succinate and amiodarone. She does have mild bradycardia at baseline. RECOMMENDATIONS 1. Continue warfarin and metoprolol as taken previously. 2. Transesophageal echocardiography tomorrow morning. MD KAYLA Wright/SUJATA /1:52 PM /2:38 PM MTDD
[2017-05-02] MEDS: WARFARIN SOD 7.5 MG TAB PO SCH ×2 (17:28→17:30)
[2017-05-03] VITALS: BP 165/78; PULSE 63; RESP 20; TEMP 97.6; O2SAT 97
[2017-05-03 04:00] VITALS: BP 158/78; PULSE 57; RESP 20; TEMP 97.8; O2SAT 97
[2017-05-03] MEDS: INSULIN ASPART SUPPLEMENTAL SCALE SQ SCH ×4 (08:00→21:00)
[2017-05-03 08:13] VITALS: BP 187/77; PULSE 57; RESP 20; TEMP 97.6; O2SAT 100
[2017-05-03] MEDS: SODIUM CHLORIDE 0.9% FLUSH 10 ML FLUSH IV FLUSH SCH ×2 (09:00→21:06)
[2017-05-03] MEDS: METOPROLOL SUCCINATE 50 MG EXTENDED RELEASE TAB PO SCH (09:00)
[2017-05-03] MEDS: amLODIPine BESYLATE 5 MG TAB PO SCH (09:30)
--- NOTE | 2017-05-03 09:33 | HHI.PR ---
Subjective Remarks no complains tolerated DANN procedure afebrile Objective Vitals Vital Signs Date Time Temp Pulse Resp B/P (MAP) Pulse Ox O2 Delivery O2 Flow Rate FiO2 05/03/17 08:13 97.6 57 20 187/77 (113) 100 05/03/17 04:00 97.8 57 20 158/78 (104) 97 05/03/17 00:00 97.6 63 20 165/78 (107) 97 05/02/17 22:54 18 05/02/17 20:10 98 05/02/17 20:00 98.1 60 20 131/61 (84) 100 05/02/17 16:00 98.0 61 16 199/82 (121) 98 05/02/17 12:28 97.6 57 16 168/75 (106) 92 I/O 05/02/17 05/02/17 05/02/17 05/03/17 05/03/17 05/03/17 07:00 15:00 23:00 07:00 15:00 23:00 Intake Total 236 ml 660 ml 720 ml Balance 236 ml 660 ml 720 ml Intake Oral 236 ml 560 ml 720 ml IV Total 100 ml # Voids 1 Result Diagram: 05/02/17 0434 05/02/17 1010 Objective Remarks awake and alert, oriented x 3 anicteric lungs clear regular rhythmabdomen soft, nntender LUE- + bruit- AVF no lower extremities edema Procedures 05/04- DANN A/P Assessment and Plan 61-year-old female transferred here from [facility] unit staph aureus septicemia Delirium secondary to staph aureus septicemia. Delusions Resolved. Transferred back to medical floor for further the medical workup Staph aureus sepsis. Continue on IV cefazolin 1 g every 12. Infectious disease consult followed by Dr. Farmer S/P DANN- will ff report duration of antibiotic course will also depend on DANN results End-stage renal disease on hemodialysis. Consult nephrology followed by Dr. Byers for hemodialysis arrangement. Continue on PhosLo and Renagel. on HD History of paroxysmal A. fib now in sinus rhythm. Hypertension well controlled- some elevated readings Continue on Toprol 50 mg XL. Add Amlodipine 2.5 mg po daily Continue on Coumadin 7.5 mg daily. INR therapeutic. FF History of diabetes type 2 insulin-requiring.- some low readings 05/03. Hold Lantus 16 units at bedtime good readings off Lantus. monitor DVT prophylaxis patient on Coumadin Patient up and ambulatory. for Bran placement for IV antibiotics per IR- INR elevated - wont do it today will give 10mg SQ vitamin K and hold coumadin today rechececk INR in am d/w IR- they can do her Bran on Monday. Kenya Hsieh MD May 03, 2017 09:33
[2017-05-03] MEDS ORDERED: PILL SPLITTER OTHER PRN (09:45)
--- NOTE | 2017-05-03 09:49 | EKG ---
Date Performed: 05/02/2017 Time Performed: 16:55:35 PTAGE: 61 years EKG: SINUS BRADYCARDIA WITH FIRST DEGREE AV BLOCK MARKED LEFT AXIS DEVIATION PATTERN CONSISTENT WITH PULMONARY DISEASE NONSPECIFIC T-WAVE ABNORMALITY ABNORMAL ECG PREVIOUS TRACING : 04/20/2017 08.20 DOCTOR: Rakesh Barros Interpretating Date/Time 05/03/2017 09:47:35
[2017-05-03] MEDS: CALCIUM ACETATE 667 MG CAP PO SCH ×3 (10:24→17:32)
[2017-05-03] MEDS: SEVELAMER CARBONATE 800 MG TAB PO SCH ×3 (10:24→17:32)
[2017-05-03 10:42] LABS: INTERNATIONAL NORMALIZED RATIO 2.7 RATIO; PROTHROMBIN TIME - PATIENT 31.4 SEC (9.8-11.6)
[2017-05-03 11:19] VITALS: BP 156/72; PULSE 57; RESP 20; TEMP 97.4; O2SAT 98
--- NOTE | 2017-05-03 11:30 | HHI.IDPN ---
Note Infectious Disease Note Reconsulted to see patient. She was transferred from psychiatry to medical Patient was seen previously for Staph sepsis. She agreed to and had DANN today. Per discussion with cardiology, she has heavily calcified mobile lesion adjacent to the mitral valve annulus but not on the valve annulus itself. Blood culture remain negative at 5 days. Patient continues to be cooperative. Pleasant. Appropriate interaction. No distress. Afebrile. Antibiotics IV Cefazolin Lines Peripheral Past Medical History ESRD Allergies: Coded Allergies: azithromycin (Verified Allergy, Severe, 04/19/17) vancomycin (Verified Allergy, Severe, PT VERIFIED RASH WITH VANCOMYCIN., 04/19/17) Objective Vital Signs Date Time Temp Pulse Resp B/P (MAP) Pulse Ox O2 Delivery O2 Flow Rate FiO2 05/03/17 11:19 97.4 57 20 156/72 (100) 98 05/03/17 08:13 97.6 57 20 187/77 (113) 100 05/03/17 04:00 97.8 57 20 158/78 (104) 97 05/03/17 00:00 97.6 63 20 165/78 (107) 97 05/02/17 22:54 18 05/02/17 20:10 98 05/02/17 20:00 98.1 60 20 131/61 (84) 100 05/02/17 16:00 98.0 61 16 199/82 (121) 98 05/02/17 12:28 97.6 57 16 168/75 (106) 92 Laboratory Tests Test 05/02/17 04:34 White Blood Count 7.7 TH/MM3 Red Blood Count 3.70 MIL/MM3 Hemoglobin 10.8 GM/DL Hematocrit 33.8 % Mean Corpuscular Volume 91.4 FL Mean Corpuscular Hemoglobin 29.2 PG Mean Corpuscular Hemoglobin Concent 31.9 % Red Cell Distribution Width 16.3 % Platelet Count 180 TH/MM3 Mean Platelet Volume 10.5 FL Neutrophils (%) (Auto) 64.0 % Lymphocytes (%) (Auto) 20.6 % Monocytes (%) (Auto) 11.7 % Eosinophils (%) (Auto) 2.9 % Basophils (%) (Auto) 0.8 % Neutrophils # (Auto) 4.9 TH/MM3 Lymphocytes # (Auto) 1.6 TH/MM3 Monocytes # (Auto) 0.9 TH/MM3 Eosinophils # (Auto) 0.2 TH/MM3 Basophils # (Auto) 0.1 TH/MM3 CBC Comment DIFF FINAL Differential Comment Laboratory Tests Test 05/02/17 04:34 05/02/17 10:10 Blood Urea Nitrogen 33 MG/DL Creatinine 6.01 MG/DL Random Glucose 80 MG/DL 170 MG/DL Calcium Level 8.6 MG/DL Sodium Level 134 MEQ/L Potassium Level 4.4 MEQ/L Chloride Level 93 MEQ/L Carbon Dioxide Level 29.3 MEQ/L Anion Gap 12 MEQ/L Estimat Glomerular Filtration Rate 9 ML/MIN PHYSICAL EXAM: HEENT: EOMI, No icterus. NECK: Supple. No swelling. No JVD. LUNGS: Breath sounds clear. CARDIAC: Nl S1S2. Regular rate and rhythm. No murmur. ABDOMEN: Soft, non tender. EXT: [facility] AVF without erythema. SKIN: No rash. multiple chronic dark macular spot lesions scattered over arms and legs. NEURO. Non focal. PSYCH: Calm and cooperative. Diagnosis: Septicemia due to Staphylococcus aureus. No clear source. ? endocarditis. DANN showed mobile density adjacent to the mitral valve. ESRD (end stage renal disease) on dialysis via AV fistula at [facility]. Stable. Recommend: Since the DANN lesion near the mitral valve is questionable I recommend treating for 4 weeks post negative culture. with IV Cefazolin 2 grams Q24 hours which can be given daily (Give the dose after dialysis on dialysis days). Until May 24 Orders written for antibiotics. Stone Farmer MD May 03, 2017 11:30
--- NOTE | 2017-05-03 12:23 | HHI.FF ---
Infusion Therapy Location of Infusion Therapy: Ambulatory Infusion Therapy Order Patient Information Patient Weight 70 kg Diagnosis: (1) Septicemia due to Staphylococcus aureus Diagnosis endocarditis Coded Allergies: azithromycin (Verified Allergy, Severe, 04/19/17) vancomycin (Verified Allergy, Severe, PT VERIFIED RASH WITH VANCOMYCIN., 04/19/17) Administer Medication Cefazolin 2 grams IV q 24 hours Dose for the day to be given after dialysis on dialysis days. Stop Treatment: May 24, 2017 Additional Information Venous access: Tunneled Catheter, Other Additional Instructions [x] Peripheral flush and dressing changes per protocol [x] Implanted port and central service line layer: * Implanted port: 10 ml Normal Saline followed by 5 ml Heparin 100 units/ml Heparin flush after each use and monthly to maintain. [] May leave port accessed during therapy. [] May leave peripheral site accessed for duration of therapy. [x] If patient has SOB or respiratory distress, check oxygen saturation. If less than 90% or clinical signs of respiratory distress, administer oxygen at 2 L/min. via nasal cannula and notify physician. [x] Anaphylaxis/Reaction orders: * Stop infusion. * Keep IV line open with saline flush. * Notify physician. * Monitor vital signs every 15 minutes until symptoms resolve. * Check Oxygen saturation; Oxygen at 2 L/min. via nasal cannula if less than 90% or clinical signs of respiratory distress. * Administer diphenhydramine (Benadryl) 25 mg IV STAT, (unless patient has received as pre-med). May repeat once, if necessary. * Solu-Cortef 250 mg IVP over 30-60 seconds, use 100 mg vials for each dissolution. * Epinephrine (1mg/1 ml) 0.3 mg subcutaneously or IVP now with any signs of respiratory distress. * Check with physician for new additional pre-med orders if patient is re- challenged or re-treated. [x] May remove PICC line when treatment complete, after confirming with Physician. [x] If the patient is admitted to the hospital, the ED, or transferred via [facility] , complete transfer form including medication reconciliation order sheet. Laboratory Tests Additional Information Blood culture after dialysis to be drawn 48 hours after patient completes therapy. Stone Farmer MD May 03, 2017 12:23
[2017-05-03] MEDS ORDERED: PHYTONADIONE 10 MG/ML VIAL SQ ONE (13:00)
--- NOTE | 2017-05-03 13:26 | HHI.NPPN ---
Subjective General Problems: Anemia Renal Failure: Chronic Interval History Awake, alert. Due today for dialysis. DANN was taken. (Petrona Sexton) Objective Data Data Vital Signs Date Time Temp Pulse Resp B/P (MAP) Pulse Ox O2 Delivery O2 Flow Rate FiO2 05/03/17 11:19 97.4 57 20 156/72 (100) 98 05/03/17 08:13 97.6 57 20 187/77 (113) 100 05/03/17 04:00 97.8 57 20 158/78 (104) 97 05/03/17 00:00 97.6 63 20 165/78 (107) 97 05/02/17 22:54 18 05/02/17 20:10 98 05/02/17 20:00 98.1 60 20 131/61 (84) 100 05/02/17 16:00 98.0 61 16 199/82 (121) 98 (Petrona Sexton) -: 05/02/17 0434 05/02/17 1010 Physical Exam General Appearance: Well Developed, No Acute Distress, Comfortable (Petrona Sexton) Eyes Eye Exam: Pupils Equal (Petrona Sexton) Throat Throat Exam: Oral Mucosa [place] & Moist (Petrona Sexton) Pulmonary Resp Exam: Clear Bilaterally, Breath Sounds Equal (Petrona Sexton) Cardiology CV Exam: Regular, Normal Sinus Rhythm, Good Perfusion (Petrona Sexton) Gastrointestinal/Abdomen GI Exam: Soft, Non-Tender, Bowel Sounds Present (Petrona Sexton) Musculoskeletal MS Exam: Joints Intact, Normal Gait, Normal Tone (Petrona Sexton) Integumentary Skin Exam: Clear, Warm, Dry (Petrona Sexton) Extremeties Extremities Exam: No Edema, Pedal Pulses Palpable Extremeties Remarks AVF left arm, small aneurysm and a scab (Petrona Sexton) Neurologic Neuro Exam: Alert, Awake, Oriented, Speech Clear, Moving All Extremities (Petrona Sexton) Psychiatric Psych Exam: Appropriate Responses (Petrona Sexton) Assessment/Plan Discussed Condition With: Patient Assessment Summary: Anemia of CKD, End Stage Renal Disease Problem List: (1) ESRD (end stage renal disease) ICD Codes: N18.6 - End-stage renal disease Status: Chronic Plan: Dialysis today and MWF. Stable from renal perspective Avoid IVF Use medial aspect of AVF, avoid open area Intermittently evaluate electrolytes (2) Septicemia due to Staphylococcus aureus ICD Codes: A41.01 - Sepsis due to Methicillin susceptible Staphylococcus aureus Status: Acute Plan: Had DANN today, results pending On Cefazolin (3) DM2 (diabetes mellitus, type 2) ICD Codes: E11.9 - Type 2 diabetes mellitus without complications Plan: Insulin as needed to maintain glucose 140-180 mg/dL (4) Metabolic bone disease ICD Codes: E88.9 - Metabolic bone disease; M90.80 - Osteopathy in diseases classified elsewhere, unspecified site Status: Acute Plan: Use Calcium acetate with meals (5) Unspecified psychosis ICD Codes: F29 - Unspecified psychosis not due to a substance or known physiological condition Plan: Mental status improved Continue to monitor Plan If discharged will need antibiotics, possibly at infusion center. If Q48 hr antimicrobials are possible, can given in HD clinic. Will await recommendations. (Petrona Sexton) Plan patient was seen and examined. Agree with above assessment and plan. Discussed with ID. 3 times/week Cefazolin is not recommended in this clinical situation. Patient will need a tunneled Bran in the IJ. (Louis Fagan MD) Petrona Sexton May 03, 2017 13:26 Louis Fagan MD May 04, 2017 07:30
--- NOTE | 2017-05-03 13:48 | PD.CARD.PN ---
Subjective Subjective Remarks No CP, dyspnea, dizziness, palpitations. Objective Medications Item Value Date Time Amlodipine 2.5 mg 05/03/17 0930 Besylate DAILY/PO (Norvasc) Metoprolol 50 mg 05/02/17 0900 Succinate DAILY/PO (Toprol Xl) Warfarin Sodium 7.5 mg 05/01/17 1920 (Coumadin) DAILY@1600/PO 05/02/17 1730 Current Medications Medications (Trade) Dose Ordered Sig/[place] Route Start Time Stop Time Status Last Admin (NS Flush) 2 ml UNSCH PRN IV FLUSH 05/01/17 18:45 (NS Flush) 2 ml BID IV FLUSH 05/01/17 21:00 05/03/17 09:00 (Restoril) 15 mg HS PRN PO 05/01/17 18:45 (Narcan Inj) 0.4 mg UNSCH PRN IV PUSH 05/01/17 18:45 (D50w (Vial) Inj) 50 ml UNSCH PRN IV PUSH 05/01/17 18:45 05/02/17 09:10 (Glucagon Inj) 1 mg UNSCH PRN OTHER 05/01/17 18:45 (NovoLOG SUPPLEMENTAL SCALE) 1 ACHS SLIDING SCALE SQ 05/01/17 21:00 Cefazolin Sodium 1000 mg/Sodium Chloride 100 ml @ 200 mls/hr Q12H IV 05/01/17 20:00 05/03/17 10:22 (Phoslo) 667 mg TIDAC PO 05/02/17 08:00 05/03/17 10:24 (Atarax) 25 mg TID PRN PO 05/01/17 18:45 (Toprol Xl) 50 mg DAILY PO 05/02/17 09:00 05/02/17 08:57 (Renvela) 800 mg TIDAC PO 05/02/17 08:00 05/03/17 10:24 (Coumadin) 7.5 mg DAILY@1600 PO 05/01/17 19:20 Future Hold 05/02/17 17:30 Sodium Chloride 1,000 ml @ 0 mls/hr Q0M PRN OTHER 05/02/17 09:24 (Heparin Inj) 8,000 units UNSCH PRN IV FLUSH 05/02/17 09:30 Sodium Chloride 1,000 ml @ 200 mls/hr Q5H PRN IV 05/02/17 09:24 Sodium Chloride 1,000 ml @ 0 mls/hr Q0M PRN OTHER 05/02/17 09:24 (Mannitol Inj) 12.5 gm UNSCH PRN IV 05/02/17 09:30 Albumin Human 100 ml @ 60 mls/hr UNSCH PRN IV 05/02/17 09:30 (NS Flush) 5 ml UNSCH PRN IV FLUSH 05/02/17 09:30 (Heparin Inj) UNSCH PRN .XX 05/02/17 09:30 (Gentamicin (Dialysis) Inj) 20 mg UNSCH PRN OTHER 05/02/17 09:30 (Zofran Inj) 4 mg UNSCH PRN IV PUSH 05/02/17 09:30 (Tylenol) 650 mg UNSCH PRN PO 05/02/17 09:30 05/02/17 21:47 (Benadryl) 25 mg UNSCH PRN PO 05/02/17 09:30 (Nitrostat Sl) 0.4 mg UNSCH PRN SL 05/02/17 09:30 (Catapres) 0.1 mg UNSCH PRN PO 05/02/17 09:30 (Gelfoam 12 Mm/7 Mm Top) 1 foam UNSCH PRN TOP 05/02/17 09:30 (Norvasc) 2.5 mg DAILY PO 05/03/17 09:30 (Pill Splitter) 1 ea UNSCH PRN OTHER 05/03/17 09:45 Vital Signs / I&O Vital Signs Date Time Temp Pulse Resp B/P (MAP) Pulse Ox O2 Delivery O2 Flow Rate FiO2 05/03/17 11:19 97.4 57 20 156/72 (100) 98 05/03/17 08:13 97.6 57 20 187/77 (113) 100 05/03/17 04:00 97.8 57 20 158/78 (104) 97 05/03/17 00:00 97.6 63 20 165/78 (107) 97 05/02/17 22:54 18 05/02/17 20:10 98 05/02/17 20:00 98.1 60 20 131/61 (84) 100 05/02/17 16:00 98.0 61 16 199/82 (121) 98 I/O 11/2105/02/17 05/02/17 05/03/17 05/03/17 05/03/17 07:00 15:00 23:00 07:00 15:00 23:00 Intake Total 236 ml 660 ml 720 ml Balance 236 ml 660 ml 720 ml Intake Oral 236 ml 560 ml 720 ml IV Total 100 ml # Voids 1 Physical Exam GENERAL: Well developed, well nourished. No acute distress. HEENT: Jugular venous pressure is normal. CHEST: Lungs clear to auscultation anteriorly. CARDIAC: Regular rate and rhythm without S3, S4, or murmur. ABDOMEN: Soft, nontender, no hepatosplenomegaly. Bowel sounds present. EXTREMITIES: No clubbing, cyanosis, or edema. Laboratory Laboratory Tests Test 05/03/17 10:20 Prothrombin Time 31.4 SEC Prothromb Time International Ratio 2.7 RATIO Assessment and Plan Problem List: (1) Septicemia due to Staphylococcus aureus ICD Codes: A41.01 - Sepsis due to Methicillin susceptible Staphylococcus aureus Status: Acute Plan: DANN today shows moderate to severe mitral annular calcification, and in the region of the annulus, on the atrial side, there is a mobile, calcified, ~4 mm irregular echodensity. Overall I do not believe this is vegetation. It does not appear to be on the posterior leaflet itself. Unfortunately cannot completely exclude this finding is a vegetation, possibly old. Discussed with Dr. Farmer. Rec long course of antibiotics. (2) Paroxysmal atrial fibrillation ICD Codes: I48.0 - Paroxysmal atrial fibrillation Status: Chronic Plan: Remains in NSR. Continues on warfarin. Patient follows with Dr. Maciej French. Will f/u as needed rest of her hospital stay. (3) Hypertension ICD Codes: I10 - Essential (primary) hypertension Status: Chronic Plan: Suboptimal BP's. Agree with amlodipine, increase dosage as needed. Code Status full code Problem Qualifiers (1) Hypertension: Qualified Codes: I10 - Essential (primary) hypertension Nickolas Hinojosa MD May 03, 2017 13:48
--- NOTE | 2017-05-03 13:56 | ECHRPT ---
Indication: SEPSIS, R/O ENDOCARDITIS CONCLUSIONS Normal left ventricular size and wall thickness. The left ventricular systolic function is normal wi th an estimated ejection fraction of 60%. Normal wall motion. Moderate to severe mitral annular calcification. In the region of the mitral annulus, on the atrial side, there is an irregular, approximately 4 mm, mobile, calcified echodensity. It is difficult to determine it s attachment site, but does not appear to be on the posterior leaflet. It likely is not vegetation but this grant ot be completely excluded. The right ventricular systolic function is possibly mildly decreased. Right ventricular size is up per normal. The left atrial size is mildly dilated. The right atrial size is mildly dilated. No atrial level shunt is demonstrated by color flow Doppler or agitated saline imaging. There is mild tricuspid valve regurgitation. Slight aortic valve sclerosis. Normal left atrial appendage size with no evidence of thrombus formation. BP: / HR: Rhythm: Technical Quality: Medications Complications Proc. Components FINDINGS LEFT VENTRICLE Normal left ventricular size and wall thickness. The left ventricular systolic function is normal wi th an estimated ejection fraction of 60%. Normal wall motion. RIGHT VENTRICLE The right ventricular systolic function is possibly mildly decreased. Right ventricular size is up per normal. LEFT ATRIUM The left atrial size is mildly dilated. RIGHT ATRIUM The right atrial size is mildly dilated. ATRIAL APPENDAGES Normal left atrial appendage size with no evidence of thrombus formation. ATRIAL SEPTUM No atrial level shunt is demonstrated by color flow Doppler or agitated saline imaging. AORTA The aortic root and proximal ascending aorta are normal in size on limited imaging. MITRAL VALVE Moderate to severe mitral annular calcification. In the region of the mitral annulus, on the atrial side, there is an irregular, approximately 4 mm, mobile, calcified echodensity. It is difficult to determine it s attachment site, but does not appear to be on the posterior leaflet. It likely is not vegetation but this grant ot be completely excluded. AORTIC VALVE Slight aortic valve sclerosis. TRICUSPID VALVE There is mild tricuspid valve regurgitation. VESSELS The pulmonary valve is not well visualized. PERICADIUM No pericardial effusion. Nickolas Hinojosa MD (Electronically Signed) Final Date:03 May 2017 13:54
[2017-05-03] MEDS ORDERED: CEFA2SOL IV (14:24)
[2017-05-03 20:30] VITALS: BP 129/63; PULSE 70; RESP 17; TEMP 97.8; O2SAT 95
[2017-05-04] VITALS (7 sets, daily range): BP systolic 149–190; BP diastolic 67–90; PULSE 57–67; RESP 18; TEMP 97.6–98.4; O2SAT 96–100
[2017-05-04 06:48] LABS: INTERNATIONAL NORMALIZED RATIO 2.4 RATIO
[2017-05-04] MEDS: INSULIN ASPART SUPPLEMENTAL SCALE SQ SCH ×4 (08:00→23:03)
[2017-05-04] MEDS: METOPROLOL SUCCINATE 50 MG EXTENDED RELEASE TAB PO SCH (08:08)
[2017-05-04] MEDS: SEVELAMER CARBONATE 800 MG TAB PO SCH ×3 (08:08→16:38)
[2017-05-04] MEDS: CALCIUM ACETATE 667 MG CAP PO SCH ×3 (08:08→16:38)
[2017-05-04] MEDS: SODIUM CHLORIDE 0.9% FLUSH 10 ML FLUSH IV FLUSH SCH ×2 (08:08→23:04)
[2017-05-04] MEDS: amLODIPine BESYLATE 5 MG TAB PO SCH (08:08)
--- NOTE | 2017-05-04 09:20 | HHI.PR ---
Subjective Remarks no complains good po Objective Vitals Vital Signs Date Time Temp Pulse Resp B/P (MAP) Pulse Ox O2 Delivery O2 Flow Rate FiO2 05/04/17 08:04 97.9 62 18 190/81 (117) 100 05/04/17 04:00 98.0 67 18 149/90 (109) 98 05/04/17 00:00 97.7 67 18 183/73 (109) 96 05/03/17 20:30 97.8 70 17 129/63 (85) 95 05/03/17 11:19 97.4 57 20 156/72 (100) 98 I/O 05/03/17 05/03/17 05/03/17 05/04/17 05/04/17 05/04/17 07:00 15:00 23:00 07:00 15:00 23:00 Intake Total 720 ml 600 ml 320 ml Balance 720 ml 600 ml 320 ml Intake Oral 720 ml 600 ml 220 ml IV Total 100 ml # Voids 0 # Bowel Movements 0 Result Diagram: 05/02/17 0434 05/02/17 1010 Objective Remarks awake and alert, oriented x 3 anicteric lungs clear regular rhythm abdomen soft, nntender LUE- + bruit- AVF no edema neuro exam- non focal Procedures 05/04- DANN A/P Assessment and Plan 61-year-old female transferred here from [facility] unit staph aureus septicemia Delirium secondary to staph aureus septicemia. Delusions Resolved. Staph aureus sepsis. Infectious disease consult followed by Dr. Farmer S/P DANN- no vegetations continue on IV Cefazolin 2 gm q 24 hours till 05/24 for Bran catheter placement- when INR down- unfortunately Vit K was not given yesterday- by staff nurse will give x 1 now and check stat one later today- to reverse INR called IR they will do it Monday if INR reversed or else Bran wont get done till next week End-stage renal disease on hemodialysis. nephrology followed by Dr. Byers for hemodialysis arrangement. Continue on PhosLo and Renagel. on HD -- History of paroxysmal A. fib now in sinus rhythm. Hypertension well controlled- some elevated readings Continue on Toprol 50 mg XL. Add Amlodipine 2.5 mg po daily Continue on Coumadin 7.5 mg daily. INR therapeutic. 2.4 HOld coumadin for Bran catheter placement History of diabetes type 2 insulin-requiring.- some low readings 05/03. Hold Lantus 16 units at bedtime good readings off Lantus. monitor DVT prophylaxis patient on Coumadin Patient up and ambulatory. for Bran placement for IV antibiotics- when INR less than 2 will give 10mg SQ vitamin K and hold coumadin today recheck INR in am d/w IR- they can do her Bran on Monday. Kenya Hsieh MD May 04, 2017 09:20
[2017-05-04] MEDS ORDERED: PHYTONADIONE 10 MG/ML VIAL SQ ONE ×2 (10:00→18:00)
--- NOTE | 2017-05-04 12:29 | HHI.NPPN ---
Subjective General Problems: Anemia Renal Failure: Chronic Interval History she offers no complaints. Awaiting placement of tunneled Bran for outpatient antibiotic therapy. Objective Data Data 05/04/17 05/05/17 18:59 06:59 Intake Total 100 ml Balance 100 ml IV Total 100 ml Vital Signs Date Time Temp Pulse Resp B/P (MAP) Pulse Ox O2 Delivery O2 Flow Rate FiO2 05/04/17 12:19 97.6 61 18 154/70 (98) 96 05/04/17 08:04 97.9 62 18 190/81 (117) 100 05/04/17 04:00 98.0 67 18 149/90 (109) 98 05/04/17 00:00 97.7 67 18 183/73 (109) 96 05/03/17 20:30 97.8 70 17 129/63 (85) 95 -: 05/02/17 0434 05/02/17 1010 Physical Exam General Appearance: Well Developed, No Acute Distress, Comfortable Eyes Eye Exam: Pupils Equal Throat Throat Exam: Oral Mucosa [place] & Moist Pulmonary Resp Exam: Clear Bilaterally, Breath Sounds Equal Cardiology CV Exam: Regular, Normal Sinus Rhythm, Good Perfusion Gastrointestinal/Abdomen GI Exam: Soft, Non-Tender, Bowel Sounds Present Musculoskeletal MS Exam: Joints Intact, Normal Gait, Normal Tone Integumentary Skin Exam: Clear, Warm, Dry Extremeties Extremities Exam: No Edema, Pedal Pulses Palpable Neurologic Neuro Exam: Alert, Awake, Oriented, Speech Clear, Moving All Extremities Psychiatric Psych Exam: Appropriate Responses Assessment/Plan Discussed Condition With: Patient Assessment Summary: Anemia of CKD, End Stage Renal Disease Problem List: (1) ESRD (end stage renal disease) ICD Codes: N18.6 - End-stage renal disease Status: Chronic Plan: Dialysis MWF. Stable from renal perspective Avoid IVF Use medial aspect of AVF, avoid open area Intermittently evaluate electrolytes (2) Septicemia due to Staphylococcus aureus ICD Codes: A41.01 - Sepsis due to Methicillin susceptible Staphylococcus aureus Status: Acute Plan: On Cefazolin. Needs daily therapy. DANN report noted. Endocarditis not completely ruled out. (3) DM2 (diabetes mellitus, type 2) ICD Codes: E11.9 - Type 2 diabetes mellitus without complications Plan: Insulin as needed to maintain glucose 140-180 mg/dL (4) Metabolic bone disease ICD Codes: E88.9 - Metabolic bone disease; M90.80 - Osteopathy in diseases classified elsewhere, unspecified site Status: Acute Plan: Use Calcium acetate with meals (5) Unspecified psychosis ICD Codes: F29 - Unspecified psychosis not due to a substance or known physiological condition Plan: Mental status improved Continue to monitor Louis aFgan MD May 04, 2017 12:29
[2017-05-04 17:33] LABS: INTERNATIONAL NORMALIZED RATIO 2.1 RATIO; PROTHROMBIN TIME - PATIENT 23.9 SEC (9.8-11.6)
[2017-05-05] VITALS: BP 169/72; PULSE 65; RESP 18; TEMP 97.6; O2SAT 98
[2017-05-05 04:00] VITALS: BP 155/70; PULSE 57; RESP 18; TEMP 98.3; O2SAT 94
[2017-05-05] MEDS: INSULIN ASPART SUPPLEMENTAL SCALE SQ SCH ×4 (08:00→21:00)
[2017-05-05] MEDS: CALCIUM ACETATE 667 MG CAP PO SCH ×3 (08:00→17:00)
[2017-05-05] MEDS: SEVELAMER CARBONATE 800 MG TAB PO SCH ×3 (08:00→17:00)
[2017-05-05 08:33] LABS: INTERNATIONAL NORMALIZED RATIO 1.5 RATIO; PROTHROMBIN TIME - PATIENT 16.7 SEC (9.8-11.6)
--- NOTE | 2017-05-05 08:57 | HHI.PR ---
Subjective Remarks feels great no complains Objective Vitals Vital Signs Date Time Temp Pulse Resp B/P (MAP) Pulse Ox O2 Delivery O2 Flow Rate FiO2 05/05/17 04:00 98.3 57 18 155/70 (98) 94 05/05/17 00:00 97.6 65 18 169/72 (104) 98 05/04/17 20:00 98.4 57 18 151/67 (95) 96 05/04/17 17:00 168/70 (102) 05/04/17 16:24 97.8 59 18 181/74 (109) 97 05/04/17 12:19 97.6 61 18 154/70 (98) 96 I/O 05/04/17 05/04/17 05/04/17 05/05/17 05/05/17 05/05/17 07:00 15:00 23:00 07:00 15:00 23:00 Intake Total 320 ml 100 ml 600 ml Balance 320 ml 100 ml 600 ml Intake Oral 220 ml 600 ml IV Total 100 ml 100 ml # Voids 1 3 Result Diagram: 05/02/17 0434 05/02/17 1010 Objective Remarks awake and alert, oriented x 3 anicteric lungs clear regular rhythm abdomen soft, nntender LUE- + bruit- AVF no edema neuro exam- non focal Procedures 05/04- DANN 05/05- for main catheter placement A/P Assessment and Plan 61-year-old female transferred here from [facility] unit staph aureus septicemia Delirium secondary to staph aureus septicemia. Delusions Resolved. Staph aureus sepsis. Infectious disease consult followed by Dr. Farmer S/P DANN- no vegetations continue on IV Cefazolin 2 gm q 24 hours till 05/24 for Main catheter placement today- INR 1.5 End-stage renal disease on hemodialysis. nephrology followed by Dr. Byers for hemodialysis arrangement. Continue on PhosLo and Renagel. on HD History of paroxysmal A. fib now in sinus rhythm. Hypertension well controlled- some elevated readings Continue on Toprol 50 mg XL. Add Amlodipine 2.5 mg po daily restart coumadin post procedure History of diabetes type 2 insulin-requiring.- some low readings 05/03. Hold Lantus 16 units at bedtime good readings off Lantus. monitor DVT prophylaxis patient on Coumadin Patient up and ambulatory. CM consult- to finalize DC plans today possibly after Main placed Kenya Hsieh MD May 05, 2017 08:57
[2017-05-05] MEDS: SODIUM CHLORIDE 0.9% FLUSH 10 ML FLUSH IV FLUSH SCH ×2 (09:00→21:18)
[2017-05-05] MEDS: METOPROLOL SUCCINATE 50 MG EXTENDED RELEASE TAB PO SCH (09:00)
[2017-05-05] MEDS ORDERED: AMLO5 PO ×2 (09:00→15:38)
[2017-05-05] MEDS: amLODIPine BESYLATE 5 MG TAB PO SCH (09:00)
[2017-05-05 09:27] VITALS: BP 167/70; PULSE 60; RESP 16; TEMP 97.1; O2SAT 96
[2017-05-05] MEDS ORDERED: MIDAZOLAM HCL 2 MG/2 ML VIAL ONE ×2 (10:05→15:13)
--- NOTE | 2017-05-05 13:06 | HHI.NPPN ---
Subjective General Problems: Anemia Renal Failure: Chronic Interval History Patient was seen and examined. Bran catheter placement postponed until 3 PM because she was not made NPO. She ate breakfast. She is doing well currently. Objective Data Data 05/05/17 05/06/17 18:59 06:59 # Voids 3 Vital Signs Date Time Temp Pulse Resp B/P (MAP) Pulse Ox O2 Delivery O2 Flow Rate FiO2 05/05/17 09:27 97.1 60 16 167/70 (102) 96 05/05/17 04:00 98.3 57 18 155/70 (98) 94 05/05/17 00:00 97.6 65 18 169/72 (104) 98 05/04/17 20:00 98.4 57 18 151/67 (95) 96 05/04/17 17:00 168/70 (102) 05/04/17 16:24 97.8 59 18 181/74 (109) 97 -: 05/02/17 0434 05/02/17 1010 Physical Exam General Appearance: Well Developed, No Acute Distress, Comfortable Eyes Eye Exam: Pupils Equal Throat Throat Exam: Oral Mucosa [place] & Moist Pulmonary Resp Exam: Clear Bilaterally, Breath Sounds Equal Cardiology CV Exam: Regular, Normal Sinus Rhythm, Good Perfusion Gastrointestinal/Abdomen GI Exam: Soft, Non-Tender, Bowel Sounds Present Musculoskeletal MS Exam: Joints Intact, Normal Gait, Normal Tone Integumentary Skin Exam: Clear, Warm, Dry Extremeties Extremities Exam: No Edema, Pedal Pulses Palpable Neurologic Neuro Exam: Alert, Awake, Oriented, Speech Clear, Moving All Extremities Psychiatric Psych Exam: Appropriate Responses Assessment/Plan Discussed Condition With: Patient Assessment Summary: Anemia of CKD, End Stage Renal Disease Problem List: (1) ESRD (end stage renal disease) ICD Codes: N18.6 - End-stage renal disease Status: Chronic Plan: Dialysis MWF. Dialysis today. Stable from renal perspective Avoid IVF Use medial aspect of AVF, avoid open area Intermittently evaluate electrolytes (2) Septicemia due to Staphylococcus aureus ICD Codes: A41.01 - Sepsis due to Methicillin susceptible Staphylococcus aureus Status: Acute Plan: On Cefazolin. Needs daily therapy. DANN report noted. Endocarditis not completely ruled out. Bran catheter placement today. Outpatient antibiotic therapy at infusion center. (3) DM2 (diabetes mellitus, type 2) ICD Codes: E11.9 - Type 2 diabetes mellitus without complications Plan: Insulin as needed to maintain glucose 140-180 mg/dL (4) Metabolic bone disease ICD Codes: E88.9 - Metabolic bone disease; M90.80 - Osteopathy in diseases classified elsewhere, unspecified site Status: Acute Plan: Use Calcium acetate with meals (5) Unspecified psychosis ICD Codes: F29 - Unspecified psychosis not due to a substance or known physiological condition Plan: Mental status improved Continue to monitor Louis Fagan MD May 05, 2017 13:06
[2017-05-05 13:11] VITALS: BP 174/75; PULSE 56; RESP 18; TEMP 97.7; O2SAT 100
[2017-05-05] MEDS ORDERED: LIDOCAINE 1%/EPINEPHrine 1:100,000 SOLN 20 ML VIAL ONE (17:05)
--- NOTE | 2017-05-05 17:35 | PD.RAD ---
Post Procedure Progress Note Pre Procedure Diagnosis: (1) Endocarditis Post Procedure Diagnosis: (1) Endocarditis Procedure Date: May 05, 2017 Supervising Radiologist: Juan Miguel Ocampo JR Proceduralist/Assist: Sumaya Jarvis, RT(R)(), Albin Womakc RT(R) Anesthesia: Conscious Sedation Plan of Activity Patient to Unit: PACU Patient Condition: Good See PACS Report for procedural detail/treatment Central Venous Access Device Procedure 1 Right Internal Jugular Tunneled Central Line Placement single lumen Thai: 7 Findings: Bran in good position and functions well. OK to use. Plan May remove suture holding catheter in place in 2-3 weeks Jr. Terrence,Juan Miguel Coley MD May 05, 2017 17:35
[2017-05-05] MEDS ORDERED: SODIUM CHLORIDE 0.9% FLUSH 10 ML FLUSH IVF PRN (17:45)
--- NOTE | 2017-05-05 18:29 | RADRPT ---
EXAM DATE/TIME: 05/05/2017 16:46 [facility] COMPARISON: No previous studies available for comparison. INDICATIONS : Patient with a history of bacteremia, positive blood cultures, needs antibiotics. MEDICAL HISTORY : Hypertension ESRD AFIB Diabetes type II SURGICAL HISTORY : Left arm AV fistula Hysterectomy Left nephrectomy Cholecystectomy ENCOUNTER: Initial ACUITY: 4-6 days PAIN SCORE: 0/10 FLUORO TIME: 0.9 minutes IMAGE SERIES: 1 SEDATION TIME: 30 minutes ACCESS: Right internal jugular vein SEDATION: 1.) 2 mg midazolam (Versed) IV 2.) 100 mcg fentanyl (Sublimaze) IV Prophylactic antibiotics were administered with appropriate pre-procedure timing. Vancomycin within 2 hours of procedure, Ancef (or alternative) within 1 hour of procedure. DEVICE: 1. 7 Upper Sor[place] single lumen Bran catheter PROCEDURE : 1. Ultrasound-guided puncture of the prescribed vein. 2. Fluoroscopic guidance. 3. Bran catheter placement 4. Conscious sedation with continuous EKG and oximetry monitoring. The risks, benefits and alternatives to the procedure were explained and verbal and written consent w as obtained. The site was prepped in sterile fashion. Full sterile technique was used, including ca p, mask, sterile gloves and gown and a large sterile sheet. Hand hygiene and 2% chlorhexidine Betadi ne was utilized per protocol for cutaneous antisepsis with appropriate dry time for site. Sterile ge l and sterile probe cover were utilized for ultrasound guidance. The skin and subcutaneous tissues w ere infiltrated with local anesthetic solution. With ultrasound and fluoroscopic guidance a dermatotomy was created in the supraclavicular region. A micropuncture set was used to access to the prescribed vein and serial dilatation was performed to a ccept a Bran catheter. A subcutaneous tunnel was created and in antegrade fashion the catheter wa s pulled through the tunnel, cut to the appropriate length and place through the sheath. The cathete r was locked with heparin and sutured in place. Conscious sedation was performed with the prescribed dosages and duration as above in the presence of an independent trained radiology nurse to assist in the monitoring of the patient. EKG and oximetry remained stable throughout the procedure. The patient tolerated the procedure well and there were no complications. The patient was sent to post anesthesia recovery in stable condition. CONCLUSION: Uncomplicated Bran catheter placement as above. Juan Miguel Ocampo Jr., MD on May 05, 2017 at 18:21 Board Certified Radiologist. This report was verified electronically.
[2017-05-05] MEDS ORDERED: WARFARIN SOD 7.5 MG TAB PO SCH ×2 (19:13→19:15)
[2017-05-05 20:49] VITALS: BP 174/83; PULSE 63; RESP 20; TEMP 97.6; O2SAT 96
[2017-05-06 00:23] VITALS: BP 145/66; PULSE 56; RESP 20; TEMP 98; O2SAT 97
[2017-05-06 05:02] VITALS: BP 166/75; PULSE 63; RESP 18; TEMP 98.1; O2SAT 97
--- NOTE | 2017-05-06 07:56 | HHI.PR ---
Subjective Remarks patient feels great good po looking forward to going home Objective Vitals Vital Signs Date Time Temp Pulse Resp B/P (MAP) Pulse Ox O2 Delivery O2 Flow Rate FiO2 05/06/17 05:02 98.1 63 18 166/75 (105) 97 05/06/17 00:23 98.0 56 20 145/66 (92) 97 05/05/17 20:49 97.6 63 20 174/83 (113) 96 05/05/17 18:10 97.6 63 19 179/74 (109) 98 Room Air 05/05/17 18:00 64 16 173/76 (108) 98 Room Air 05/05/17 17:48 97.5 66 16 172/86 (114) 92 Room Air 05/05/17 13:11 97.7 56 18 174/75 (108) 100 05/05/17 09:27 97.1 60 16 167/70 (102) 96 I/O 05/05/17 05/05/17 05/05/17 05/06/17 05/06/17 05/06/17 07:00 15:00 23:00 07:00 15:00 23:00 Intake Total 340 ml Output Total 2000 ml Balance -1660 ml Intake Oral 240 ml IV Total 100 ml Output Hemodialysis 2000 ml # Voids 3 3 2 # Bowel Movements 1 1 Result Diagram: 05/02/17 0434 05/02/17 1010 Imaging Last Impressions Catheter Placement X-Ray 05/05/17 0000 Signed Impressions: Service Date/Time: Friday, May 05, 2017 16:46 - CONCLUSION: Uncomplicated Main catheter placement as above. Juan Miguel Ocampo Jr., MD Objective Remarks awake and alert, oriented x 3 anicteric Main catheter in place lungs clear regular rhythm abdomen soft, nnntender LUE- + bruit- AVF no edema neuro exam- non focal Procedures 05/04- DANN 05/05-main catheter placement A/P Assessment and Plan 61-year-old female transferred here from [facility] unit staph aureus septicemia Delirium secondary to staph aureus septicemia. Delusions Resolved. Staph aureus sepsis. Infectious disease ff- Dr. Farmer S/P DANN- no vegetations continue on IV Cefazolin 2 gm q 24 hours till 05/24 S/P Main catheter placement 05/05 End-stage renal disease on hemodialysis. nephrology followed by Dr. Byers for hemodialysis arrangement. Continue on PhosLo and Renagel. on HD - History of paroxysmal A. fib now in sinus rhythm. Hypertension well controlled- some elevated readings Continue on Toprol 50 mg XL. Amlodipine 10 mg po daily restart coumadin 7.5 daily - patient states she is ff by [facility] and adjust her coumadin History of diabetes type 2 insulin-requiring.- some low readings 05/03. Hold Lantus 16 units at bedtime good readings off Lantus. monitor d/w her to monitor- patient states she is vigilant about this- has a test kit we d/w about her about her readings here- advised her to take 1/2 dose of 8 units - we/ve agreeed to lower her Lantus to 10 units hs `bvery knowledgeable about hypoglycemic symptoms. reminded her to take HS snacks if to start at home half the dose and monitor DVT prophylaxis patient on Coumadin Patient up and ambulatory. DC today Kenya Hsieh MD May 06, 2017 07:56
[2017-05-06] MEDS: SEVELAMER CARBONATE 800 MG TAB PO SCH (07:58)
[2017-05-06] MEDS: METOPROLOL SUCCINATE 50 MG EXTENDED RELEASE TAB PO SCH (07:58)
[2017-05-06] MEDS: CALCIUM ACETATE 667 MG CAP PO SCH (07:59)
--- NOTE | 2017-05-06 07:59 | HHI.DS ---
Discharge Summary Admission Date May 01, 2017 at 17:58 Discharge Date: May 06, 2017 Admitting Diagnosis Staph aureus sepsis (1) Septicemia due to Staphylococcus aureus ICD Code: A41.01 - Sepsis due to Methicillin susceptible Staphylococcus aureus Diagnosis: Principal Status: Acute (2) DM2 (diabetes mellitus, type 2) ICD Code: E11.9 - Type 2 diabetes mellitus without complications Diagnosis: Secondary (3) ESRD (end stage renal disease) ICD Code: N18.6 - End-stage renal disease Diagnosis: Secondary Status: Chronic (4) Paroxysmal atrial fibrillation ICD Code: I48.0 - Paroxysmal atrial fibrillation Diagnosis: Secondary Status: Chronic Procedures 05/04- DANN 05/05-main catheter placement Brief History - From Admission Patient is a very pleasant 61-year-old female with history of end-stage renal disease on hemodialysis Monday, paroxysmal A. fib now in normal sinus rhythm, hypertension who was admitted here recently is secondary to septicemia due to staph aureus sepsis. During hospital stay did develop delirium secondary to underlying medical condition/unspecified psychosi secondary to sepsis s. Patient was transferred to [facility] for further psychiatric management. A DANN was recommended however at that time patient was unable to give consent and son refused to sign consent. Patient was placed on IV cefazolin 1 g every 12 and undergoing hemodialysis. Patient mental status improved and is now awake alert and very cooperative with care. Now -t she specifically agreed to the procedure.. States good hypoglycemic awareness. She was awake alert oriented cooperative and able to give full history of her medical conditions and specifically give me a call her primary care doctor and specialists that she follows up with as outpatient Patient now states that is agreeable to have the DANN done. Patient is afebrile. Denies any pain with good by mouth appetite. Complains of constipation. No nausea vomiting chest pains or shortness of breath. CBC/BMP: 05/02/17 0434 05/02/17 1010 Significant Findings Laboratory Tests Test 05/03/17 10:20 05/04/17 05:48 05/04/17 17:14 05/05/17 06:20 Prothrombin Time 31.4 SEC (9.8-11.6) 27.0 SEC (9.8-11.6) 23.9 SEC (9.8-11.6) 16.7 SEC (9.8-11.6) Imaging Last Impressions Catheter Placement X-Ray 05/05/17 0000 Signed Impressions: Service Date/Time: Friday, May 05, 2017 16:46 - CONCLUSION: Uncomplicated Main catheter placement as above. Juan Miugel Ocampo Jr., MD PE at Discharge awake and alert, oriented x 3 anicteric Main catheter in place lungs clear regular rhythm abdomen soft, nnntender LUE- + bruit- AVF no edema neuro exam- non focal Pt update on day of discharge afebrile in very good spirits very knowledegable and very proactive with her care- regarding HTN, DM and renal disease Hospital Course 61-year-old female transferred here from [facility] unit staph aureus septicemia Delirium secondary to staph aureus septicemia. Delusions Resolved. Staph aureus sepsis. Infectious disease ff- Dr. Farmer S/P DANN- no vegetations continue on IV Cefazolin 2 gm q 24 hours till 05/24 S/P Main catheter placement 05/05 End-stage renal disease on hemodialysis. nephrology followed by Dr. Byers for hemodialysis arrangement. Continue on PhosLo and Renagel. on HD M-W- History of paroxysmal A. fib now in sinus rhythm. Hypertension well controlled- some elevated readings Continue on Toprol 50 mg XL. Amlodipine 10 mg po daily restart coumadin 7.5 daily - patient states she is ff by [facility] and adjust her coumadin History of diabetes type 2 insulin-requiring.- some low readings 05/03. good readings off Lantus. monitor d/w her to monitor- patient states she is vigilant about this- has a test kit we d/w about her about her readings here- advised her to take 1/2 dose of 8 units - we/ve agreeed to lower her Lantus to 10 units hs `bvery knowledgeable about hypoglycemic symptoms. reminded her to take HS snacks if to start at home half the dose and monitor DVT prophylaxis patient on Coumadin Patient up and ambulatory. Pt Condition on Discharge: Stable Discharge Disposition: Discharge Home Discharge Time: <= 30 minutes Discharge Instructions DIET: Follow Instructions for: Diabetic Diet, Coumadin (Warfarin) Diet, Dialysis Diet Activities you can perform: Weight Bearing as Karl Follow up Referrals: Appointment for Follow Up Cardiology - 1 Week with [facility] Nephrology - 05/09/17 with Zeeshan PCP Follow-up - 05/08/17 with Jacinta PCP Follow-up New Medications: Cefazolin Inj (Cefazolin Inj) 2 Gm/50 Ml Bagp 2 GM IV Q24H for Infection for 21 Days, #21 BAG 0 Refills End date 05/24/17. dose to be given after dialysis on dialysis days. Amlodipine (Norvasc) 5 Mg Tab 10 MG PO DAILY for HTN for 30 Days, #60 TAB Continued Medications: Calcium Acetate (Phosphate Binder) (Calcium Acetate (Phosphate Binder)) 667 Mg Tab 667 MG PO TIDAC for Hyperphosphatemia, #90 TAB 0 Refills Metoprolol Succinate ER 24 HR (Metoprolol Succinate ER 24 HR) 50 Mg Tab 50 MG PO DAILY, #30 TAB 0 Refills Sevelamer Carbonate (Renvela) 800 Mg Tab 800 MG PO TIDAC for Control phosphorous levels, #90 TAB 0 Refills Warfarin (Warfarin) 7.5 Mg Tab 7.5 MG PO DAILY for Blood Clot Prevention, #30 TAB 0 Refills Discontinued Medications: Insulin Glargine Inj (Lantus Inj) 1,000 Unit/10 Ml Vial 16 UNITS SQ HS for Blood Sugar Management, VIAL 0 Refills Kenya Hsieh MD May 06, 2017 07:59
[2017-05-06 08:00] VITALS: BP 157/71; PULSE 60; RESP 20; TEMP 98.4
[2017-05-06] MEDS: INSULIN ASPART SUPPLEMENTAL SCALE SQ SCH (08:00)
[2017-05-06] MEDS: SODIUM CHLORIDE 0.9% FLUSH 10 ML FLUSH IV FLUSH SCH (08:10)
[2017-05-06 08:54] LABS: INTERNATIONAL NORMALIZED RATIO 1.2 RATIO; PROTHROMBIN TIME - PATIENT 13.4 SEC (9.8-11.6)
[2017-05-06] MEDS ORDERED: SODIUM CHLORIDE 0.9% FLUSH 10 ML FLUSH IVF SCH (09:00)
[2017-05-06] MEDS ORDERED: amLODIPine BESYLATE 5 MG TAB PO SCH (09:00)
[2017-05-06] MEDS ORDERED: WARFARIN SOD 2.5 MG TAB PO ONE (16:00)
[2017-05-06] MEDS ORDERED: WARFARIN SOD 7.5 MG TAB PO SCH (18:00)
== END 2017-05-06 12:23 | disposition home or self-care (01) | DRG 871 ==
LOC: N05A 17:58
PROVIDERS: ADMIT Internal Medicine; ATTEND Internal Medicine
PROC: 5A1D70Z Performance of Urinary Filtration, Intermittent, Less than 6 Hours Per Day (ICD-10-PCS; principal; 2017-05-01)
PROC: B246ZZ4 Ultrasonography of Right and Left Heart, Transesophageal (ICD-10-PCS; 2017-05-03)
PROC: 02HV33Z Insertion of Infusion Device into Superior Vena Cava, Percutaneous Approach (ICD-10-PCS; 2017-05-05)
PROC: B543ZZA Ultrasonography of Right Jugular Veins, Guidance (ICD-10-PCS; 2017-05-05)
PROC: B518ZZA Fluoroscopy of Superior Vena Cava, Guidance (ICD-10-PCS; 2017-05-05)
DX: A41.01 Sepsis due to Methicillin susceptible Staphylococcus aureus (principal); N18.6 End stage renal disease; I12.0 Hypertensive chronic kidney disease with stage 5 chronic kidney disease or end stage renal disease; E88.89 Other specified metabolic disorders; I38 Endocarditis, valve unspecified; I48.0 Paroxysmal atrial fibrillation; R00.1 Bradycardia, unspecified; E11.22 Type 2 diabetes mellitus with diabetic chronic kidney disease; D63.1 Anemia in chronic kidney disease; K59.00 Constipation, unspecified; E78.5 Hyperlipidemia, unspecified; Z79.01 Long term (current) use of anticoagulants; Z79.4 Long term (current) use of insulin; Z85.89 Personal history of malignant neoplasm of other organs and systems; Z87.891 Personal history of nicotine dependence; Z88.1 Allergy status to other antibiotic agents; Z99.2 Dependence on renal dialysis
CPT/HCPCS: 36558; 76937; 77001; 80048; 82947; 82948; 85025; 85610; 90935; 93005; 93312; 93320; 93325; 96374; 96375; 99152; 99153; C1751; C1769; J0690; J1642; J1815; J2250; J2405; J3010; J3430

== ENCOUNTER 2017-06-08 07:53 | Day surgery (SDC) | payer MEDICARE, OTHER ==
[~2017-06-08 07:53] MED LIST changes: +AMLO5 PO; +CEFA2SOL IV; -LANTUS2P SQ
[2017-06-08] MEDS ORDERED: AMLO5TAB2 PO (08:57)
[2017-06-08] MEDS ORDERED: OMEP20TA93 PO (08:57)
[2017-06-08] MEDS ORDERED: NEPHTAB3 PO (08:57)
[2017-06-08 09:01] LABS: AUTOMATED NEUTROPHIL # 2.9 TH/MM3 (1.8-7.7); BASOPHIL # 0.1 TH/MM3 (0-0.2); BASOPHIL % 1.2 % (0.0-2.0); EOSINOPHIL # 0.4 TH/MM3 (0-0.4); EOSINOPHIL % 7.7 % (0.0-4.0); HEMATOCRIT 32.1 % (35.0-46.0); HEMOGLOBIN 10.2 GM/DL (11.6-15.3); LYMPH % 21.2 % (9.0-44.0); MEAN CELL VOLUME 95.2 FL (80.0-100.0); MEAN CORPUSCULAR HEMOGLOBIN 30.1 PG (27.0-34.0); MEAN CORPUSCULAR HGB CONC 31.7 % (32.0-36.0); MEAN PLATELET VOLUME 9.7 FL (7.0-11.0); MONO % 9.4 % (0.0-8.0); MONOCYTE # 0.5 TH/MM3 (0-0.9); NEUT % 60.5 % (16.0-70.0); PLATELET COUNT 151 TH/MM3 (150-450); RED BLOOD COUNT 3.37 MIL/MM3 (4.00-5.30); RED CELL DISTRIBUTION WIDTH 19.8 % (11.6-17.2); WHITE BLOOD COUNT 4.8 TH/MM3 (4.0-11.0)
[2017-06-08 09:05] LABS: INTERNATIONAL NORMALIZED RATIO 2.4 RATIO; PROTHROMBIN TIME - PATIENT 24.2 SEC (9.8-11.6)
[2017-06-08 09:15] VITALS: BP 182/81; PULSE 55; RESP 20; TEMP 98; O2SAT 92
[2017-06-08] MEDS ORDERED: LIDOCAINE 1%/EPINEPHrine 1:100,000 SOLN 20 ML VIAL ONE (10:21)
[2017-06-08 10:50] VITALS: BP 170/90; PULSE 60; RESP 20; TEMP 97.9; O2SAT 92
--- NOTE | 2017-06-08 13:34 | RADRPT ---
EXAM DATE/TIME: 06/08/2017 00:00 [facility] COMPARISON: No previous studies available for comparison. INDICATIONS : Patient finished with medication administration, no longer in need of central venous catheter. MEDICAL HISTORY : HTN ESRD A-FIB Recent episode of psychosis Diabetes type 2 insulin-requiring SURGICAL HISTORY : Left upper arm AV fistula Hysterectomy Left kidney removal because of hemorrhage in 2010 Cholecystectomy in 2013 ENCOUNTER: Subsequent ACUITY: 2 weeks PAIN SCORE: 0/10 LOCATION: N/A PROCEDURE : 1. tunneled Bran catheter removal. The risks, benefits and alternatives to the procedure were explained and verbal and written consent w as obtained. The site was prepped in sterile fashion. Full sterile technique was used, including ca p, mask, sterile gloves and gown and a large sterile sheet. Hand hygiene and 2% chlorhexidine and/or betadine/alcohol prep was utilized per protocol for cutaneous antisepsis. The skin and subcutaneous tissues were infiltrated with local anesthetic solution. The tract was anesthetized with 1% Lidocaine using. The catheter was dissected from the subcutaneous tissues and easily removed in one piece. Manual pressure was applied to the venotomy site until hem ostasis was obtained. Sterile dressing was applied. The patient tolerated the procedure well and there were no complications. CONCLUSION: Uncomplicated tunneled Bran catheter removal. Theodore Ruelas MD on June 08, 2017 at 13:32 Board Certified Radiologist. This report was verified electronically.
== END 2017-06-08 12:02 | disposition home or self-care (01) ==
LOC: HRIP 07:53 → HROP 07:53
PROVIDERS: ATTEND Internal Medicine Nephrology
DX: Z45.2 Encounter for adjustment and management of vascular access device (principal); I12.0 Hypertensive chronic kidney disease with stage 5 chronic kidney disease or end stage renal disease; N18.6 End stage renal disease; E11.22 Type 2 diabetes mellitus with diabetic chronic kidney disease; I48.91 Unspecified atrial fibrillation; Z79.4 Long term (current) use of insulin; Z79.01 Long term (current) use of anticoagulants
CPT/HCPCS: 36589; 85025; 85610; 85730

== ENCOUNTER 2017-09-20 14:42 | Emergency (ER) | payer MEDICARE, OTHER ==
[~2017-09-20] VITALS: Ht 167.6 cm; Wt 75.8 kg
[~2017-09-20 14:42] MED LIST changes: -AMLO5 PO; +AMLO5TAB2 PO; -CEFA2SOL IV; +NEPHTAB3 PO; +OMEP20TA93 PO
[2017-09-20] MEDS ORDERED: TRANEXAMIC ACID INJ 1,000 MG in SODIUM CHLORIDE 0.9% INJ 100 ML IV ONE (15:00)
[2017-09-20] MEDS ORDERED: GELATIN POWDER 1 GM PACKET TOPICAL ONE (15:00)
[2017-09-20 15:03] VITALS: BP 156/77; PULSE 70; RESP 16; TEMP 98; O2SAT 97
[2017-09-20] MEDS ORDERED: TRANEXAMIC ACID INJ 1,000 MG/10 ML AMP TOPICAL ONE (15:15)
--- NOTE | 2017-09-20 15:28 | PD ---
HPI . Bleeding Chief Complaint: Bleeding Time Seen by Provider: 14:50 Travel History International Travel<30 days: No Contact w/Intl Traveler<30days: No Traveled to known affect area: No History of Present Illness HPI This patient presents with chief complaint of bleeding from her AV fistula. She is a dialysis patient. She went to dialysis today. Following dialysis, she went shopping. The fistula started bleeding while she was out shopping. [facility] was called and she was brought to us for further treatment. She was treated prior to presentation with a pressure dressing. Bleeding is currently controlled. 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)) Cardiovascular Problems: Yes (htn on meds, a-fib) High Cholesterol: Yes Chemotherapy: No Chest Pain: No Congestive Heart Failure: No Cerebrovascular Accident: No Diabetes: Yes (type 2) Dialysis: Yes (-W-) Diminished Hearing: No Endocrine: Yes Gastrointestinal Disorders: No Glaucoma: Yes Genitourinary: Yes (CRF/HOME DIALYSIS) Hepatitis: No Hiatal Hernia: No Hypertension: Yes Immune Disorder: No Implanted Vascular Access Dvce: Yes Kidney Stones: No Musculoskeletal: Yes Neurologic: No Psychiatric: No Reproductive: No Respiratory: No Immunizations Current: Yes Migraines: No Pneumonia: Yes Radiation Therapy: No Renal Failure: Yes (ESRD) Seizures: No Thyroid Disease: No ?: Not Menopausal: Yes : 2 Para: 2 Past Surgical History Abdominal Surgery: Yes (SARCOMA REMOVED) AICD: No Arteriovenous Shunt: Yes (Left arm fistula) Body Medical Devices: SHUNT LEFT UPPER ARM Cardiac Surgery: No Cholecystectomy: Yes Ear Surgery: No Endocrine Surgery: Yes (PARATHYROID REMOVED) Eye Surgery: Yes (LEFT LENS IMPLANT 2005) Genitourinary Surgery: No Gynecologic Surgery: Yes (HYSTERECTOMY 1989) Hysterectomy: Yes Insulin Pump: No Joint Replacement: No Oral Surgery: No Pacemaker: No Thoracic Surgery: No Other Surgery: Yes (SARCOMA REMOVAL 2000, FISTULAS TO L UPPER EXTREMITY PATENT FOR BRUIT/THRILL) Social History Alcohol Use: Yes (OCC) Tobacco Use: No Substance Use: No Allergies-Medications (Allergen,Severity, Reaction): Coded Allergies: azithromycin (Verified Allergy, Severe, 4/11/18) vancomycin (Verified Allergy, Severe, PT VERIFIED RASH WITH VANCOMYCIN., ) Reported Meds & Prescriptions Reported Meds & Active Scripts Active Reported B12 (Cyanocobalamin) 1,000 Mcg Tab 1 Tab PO HS Lantus Solostar Pen Inj (Insulin Glargine) 300 Unit/3 Ml Pen 18 Units SQ HS Omeprazole 20 Mg Tab 20 Mg PO HS Nephro-Henri (B-Complex W/ C & Folic Acid) 1 Tab 1 Tab PO HS Amlodipine (Amlodipine Besylate) 5 Mg Tab 5 Mg PO BID Calcium Acetate (Phosphate Binder) 667 Mg Tab 667 Mg PO TIDAC Renvela (Sevelamer Carbonate) 800 Mg Tab 800 Mg PO TIDAC Hydroxyzine HCl 25 Mg Tab 25 Mg PO TID PRN Warfarin 7.5 Mg Tab 7.5 Mg PO HS Metoprolol Succinate ER 24 HR (Metoprolol Succinate) 50 Mg Tab 50 Mg PO HS Review of Systems Except as stated in HPI: all other systems reviewed are Neg Physical Exam Narrative GENERAL: Awake and alert and in no acute distress. SKIN: Warm and dry. Dressing in place on the left upper extremity. HEAD: Normocephalic/atraumatic. EYES: Pupils are equal. Extraocular movements are intact. NECK: Normal range of motion. CARDIOVASCULAR: Regular rate and rhythm. RESPIRATORY: Nonlabored respirations. MUSCULOSKELETAL: Atraumatic. NEUROLOGICAL: Nonfocal. PSYCHIATRIC: Appropriate mood and affect. Data Data Last Documented VS Vital Signs Date Time Temp Pulse Resp B/P (MAP) Pulse Ox O2 Delivery O2 Flow Rate FiO2 09/20/17 15:24 58 16 97 Room Air 09/20/17 15:03 98.0 156/77 (103) Orders Orders Gelatin Powder Pack (Gelfoam Powder Pack (09/20/17 15:00) Tranexamic Acid Inj (Cyklokapron Inj) (09/20/17 15:00) Tranexamic Acid Inj (Cyklokapron Inj) (09/20/17 15:15) Ed Discharge Order (09/20/17 16:20) MDM Medical Decision Making Medical Screen Exam Complete: Yes Emergency Medical Condition: Yes Differential Diagnosis Differential diagnosis includes but is not limited to inadvertent trauma, coagulopathy, platelet dysfunction Narrative Course This patient presents for bleeding from her dialysis AV fistula. It took quite a while to get medication from the pharmacy. I did eventually obtain TXA. I have makes the TXA [id number] with sterile water. I used a total of 5 cc of TXA which would have been 500 mg. Once we had all of our supplies at hand, the dressing was removed. She had no active bleeding once the dressing was removed. I did drip the TXA on the sites that had been bleeding. 2 2 x 2 gauzes were placed over the wound and the remaining TXA was dripped onto the gauzes. The gauzes were then covered by Gelfoam. The entire area was dressed with 4 x 4's, Skip and an Yang wrap. The patient has been instructed to leave the dressing in place until tomorrow. 30 minutes following treatment, she has not bled through her dressing. She will be allowed to go home. Diagnosis Primary Impression: Hemorrhage from dialysis shunt Qualified Codes: T82.838A - Hemorrhage due to vascular prosthetic devices, implants and grafts, initial encounter Patient Instructions: General Instructions, Postoperative Bleeding (DC) Disposition: 01 DISCHARGE HOME Condition: Stable Ann Roldan MD Sep 20, 2017 15:28
[2017-09-20] MEDS ORDERED: LANTINJ SQ (15:31)
[2017-09-20] MEDS ORDERED: CYAN1TAB24 PO (15:32)
[2017-09-20 16:47] VITALS: BP 183/69
== END 2017-09-20 16:48 | disposition home or self-care (01) ==
LOC: PHED 14:42
DX: T82.838A Hemorrhage due to vascular prosthetic devices, implants and grafts, initial encounter (principal); I48.91 Unspecified atrial fibrillation; E78.00 Pure hypercholesterolemia, unspecified; E11.22 Type 2 diabetes mellitus with diabetic chronic kidney disease; I12.0 Hypertensive chronic kidney disease with stage 5 chronic kidney disease or end stage renal disease; N18.6 End stage renal disease; H40.9 Unspecified glaucoma; M19.90 Unspecified osteoarthritis, unspecified site; Z99.2 Dependence on renal dialysis
CPT/HCPCS: 12001